=== PATIENT | female | born 1995 | race Caucasian/White ===

== ENCOUNTER 2018-05-10 14:40 | Outpatient (CLI) | payer MEDICAID, SELFPAY ==
[2018-05-10 17:34] LABS: HCG Quant, Pregnancy < 1 mIU/mL (1-3)
== END 2018-05-10 15:00 ==
PROVIDERS: PCP Nurse Practitioner; Visit Provider Advanced Practice Midwife
DX: N92.6 Irregular menstruation, unspecified (principal)
CPT/HCPCS: 36415; 84702

== ENCOUNTER 2018-12-09 18:26 | Emergency (ER) | payer MEDICAID, SELFPAY ==
[2018-12-09 18:37] VITALS: BP 119/77; PULSE 96; RESP 16; TEMP 36.8; O2SAT 99
--- NOTE | 2018-12-09 19:03 | W.ED.GENAD ---
Discharge Plan Disposition Patient Disposition: HOME Condition: Good Discharge Details Chief Complaint: Sorethroat Clinical Impression: Strep throat Primary Care Provider: Mary Rangel ED Provider: Sonia Ramirez Home Meds and New Rx's Prescriptions: New penicillin V potassium 500 mg tablet 500 mg PO BID Qty: 20 RF: 0 No Action levonorgestrel-ethinyl estrad [Kim 28] 1 EACH tablet 1 tab-cap PO DAILY Qty: 84 RF: 4 levalbuterol tartrate [Xopenex HFA] 200 PUFF HFA aerosol inhaler 2 puff Inhalation Q4H PRN PRNRF: 0 Discharge Instructions Instructions: Strep Throat (ED) Additional Instructions: Push fluids by mouth. Warm salt water gargles if needed. Cepacol lozenge for comfort. Motrin or Tylenol for soreness if needed. Rest activities as tolerated. Recheck if not improving the next 3 to 5 days. For any worsening or concerns of reevaluation, difficulty swallowing, difficulty speaking or alarming symptoms have reevaluation. Stand Alone Forms: Work Release Medical Decision Making Patient with 3 days of sore throat with a positive strep test. Negative test. No sign of complication of strep pharyngitis. Counseled regarding conservative treatments. Provided antibiotic. Patient reports her understanding. HPI General Date/Time Provider Initiated Documentation: 12/09/18 18:49. HPI Narrative: Patient presents for complaints of sore throat for the last 3 days. Mild headache. No measured fever. Patient denies nausea, vomiting or diarrhea. Very minimal cough without any associated difficult to be him or shortness of breath or wheezing. Nonproductive cough. No complaints of ear pain. Patient denies chest pain. Denies abdominal pain. Eating and drinking without complication however has decreased appetite. No other concerns or complaints at this time. Related Data Home Medications Medication Instructions Recorded Confirmed levalbuterol tartrate [Xopenex HFA] 2 puff INHALATION Q4H PRN PRN 10/12/14 12/09/18 levonorgestrel-ethinyl estrad 1 tab-cap PO DAILY #84 tab-cap 05/23/17 12/09/18 [Kim-28 Tablet] penicillin V potassium 500 mg PO BID #20 tab 12/09/18 Previous Rx's Medication Instructions Recorded levonorgestrel-ethinyl estrad 1 tab-cap PO DAILY #84 tab-cap 05/23/17 [[place]-28 Tablet] penicillin V potassium 500 mg PO BID #20 tab 12/09/18 Allergies Allergy/AdvReac Type Severity Reaction Status Date / Time No Known Allergies Allergy Unverified 08/24/18 10:30 General Stated Complaint: Sorethroat TEO: 4 Review of Systems Review of Systems Narrative: CONSTITUTIONAL: The patient denies fevers, chills. EYES: Denies vision changes, blurry vision, or eye pain. ENT: Denies hearing changes, tinnitus, vertigo. Sore throat present. CARDIAC: Denies chest pain, SOB. RESPIRATORY: Denies cough, sputum. Denies difficulty breathing. GASTROINTESTINAL: Denies abdominal pain, changes in bowel, vomiting or nausea. GENITOURINARY: Denies dysuria, or frequency of urination. MUSCULOSKELETAL: Denies Joint pain, gait changes. NEUROLOGIC: Denies headaches, Denies focal weakness. Denies numbness. INTEGUMENT: Denies rashes. PSYCHIATRIC: Denies behavior changes. Denies anxiety or depression. ENDOCRINOLOGY: Denies fatigue. PSYCHIATRY: Denies depression, agitation or anxiety ROS Unobtainable: All systems reviewed & are unremarkable except as noted in HPI and below PFSH Medical History Asthma Constipation Surgical History Appendectomy (12/24/16) Family History Mother Essential hypertension Maternal Grandmother Breast cancer Social History Smoking/Tobacco Use Status: Never Drug use: Never Do you feel safe in your relationship?: Yes Female Reproductive History Menstrual control method: pills (kim) History History Para 2 Hx # Term Pregnancies Multiple births Hx # Pregnancies Ectopic pregnancies AB induced Hx Number of Living Children AB spontaneous Exam Narrative Exam Narrative: CONST: Healthy appearing patient, in no acute distress. Well hydrated. Alert and alert. HENMT: Head nomocephalic, normal to inspection. Atraumatic. Hearing grossly normal. Pharynx with erythema, no exudate, no sign of soft palate swelling or peritonsillar abscess. EYES: General normal appearance. Alignment normal. Eyelids normal. Conjunctiva normal. NECK: Normal visual inspection. FROM. Trachea midline. No Midline tenderness. Cervical lymphadenopathy present CHEST: Normal insepection of the chest. RESP: Normal respiratory effort. Speaking full sentences. No cough. No audible wheezing. No retractions. CARDIO: No JVD. MUSCULOSKELETAL: Normal Gait. FROM of all extremities. SKIN: Normal. Dry. No rashes. NEURO: Alert and awake. Speech clear. PSYCH: Normal affect. Cooperative. Course Vital Signs Vital signs: Vital Signs Temperature 36.8 C 12/09/18 18:37 Pulse 96 H 12/09/18 18:37 Respiratory Rate 16 12/09/18 18:37 Blood Pressure 119/77 12/09/18 18:37 Pulse Oximetry 99 12/09/18 18:37 Temperature 36.8 C 12/09/18 18:37 Temperature Source Skin 12/09/18 18:37 Pulse 96 H 12/09/18 18:37 Respiratory Rate 16 12/09/18 18:37 Respiratory Effort Non-Labored 12/09/18 18:52 Blood Pressure 119/77 12/09/18 18:37 Blood Pressure Position Sitting 12/09/18 18:37 Pulse Oximetry 99 12/09/18 18:37 Oxygen Delivery Method Room Air 12/09/18 18:37 Oxygen Flow Rate 0 12/09/18 18:37 Lab/Test Results Lab/Test Results: Laboratory Tests Range/Units 12/09/18 18:51 Urine HCG, Qual Cancelled POC- Test(urine) Negative POC Strep Test-BOB(Rapid) Start: 12/09/18 18:50 Freq: .Rapid Strep Test Status: Active Protocol: Document 12/09/18 18:50 KL (Rec: 12/09/18 18:50 KL [id number]) Strep test-BOB(Rapid)-POC POC-Strep test-BOB (Rapid) Positive POC-Strep test-BOB (Rapid) Positive
== END 2018-12-09 19:12 | disposition home or self-care (01) ==
PROVIDERS: Emergency Provider Physician Assistant; PCP Nurse Practitioner
DX: J02.0 Streptococcal pharyngitis (principal)
CPT/HCPCS: 81025; 87880; 99283

== ENCOUNTER 2019-09-25 15:41 | Outpatient (REF) | payer MEDICAID, SELFPAY ==
--- NOTE | 2019-09-25 15:30 | PAPFT_PTH ---
PATIENT: Abram Guo LOC: [facility] U#:[id number] AGE/SX: 23/F ROOM: RE09/25/[address]: JOY Savage : 1995 BED: DIS: 09/25/2019 SPEC #: [id number] RECD: 09/25/19 17:06 STATUS: BONG REQ #: [id number] JENNY: 09/25/19 15:[address]: Jacque Rodriguez DEPT: [facility] Cytology RECD BY: Kavitha Lee ENTERED: 09/25/19 17:06 SP TYPE: PAPFT OTHR DR: Chantal Hendricks, PhD RN INTERN Tissues: 1 - CX/ENDOCX FOR PAP SMEARS Procedures: PAP THIN PREP/UVM Screening Comments: [id number]
== END 2019-09-25 16:01 ==
LOC: LBN 15:41
PROVIDERS: PCP Nurse Practitioner; Visit Provider Nurse Practitioner Family
DX: Z12.4 Encounter for screening for malignant neoplasm of cervix (principal)
CPT/HCPCS: 88142

== ENCOUNTER 2020-01-21 01:32 | Outpatient (CLI) | payer MEDICAID, SELFPAY ==
[2020-01-21 10:27] LABS: Hemoglobin A1C 5.5 % (<5.7)
[2020-01-21 11:05] LABS: Calculated LDL 87 mg/dL (<100); Cholesterol 161 mg/dL (<200); HDL Cholesterol 59 mg/dL (40-60); Triglyceride 77 mg/dL (<150)
== END 2020-01-21 01:52 ==
PROVIDERS: PCP Nurse Practitioner; Visit Provider Nurse Practitioner
DX: Z13.1 Encounter for screening for diabetes mellitus (principal); Z13.6 Encounter for screening for cardiovascular disorders
CPT/HCPCS: 36415; 80061; 83036

== ENCOUNTER 2020-08-14 03:12 | Outpatient (CLI) | payer MEDICAID, SELFPAY ==
[2020-08-14 11:43] LABS: Abs Immature Grans 0.02 10^3/uL (0.0-0.06); Absolute Basophil Count 0.02 10^3/uL (0.0-0.2); Absolute Eosinophil Count 0.02 10^3/uL (0.0-0.7); Absolute Lymphocyte Count 3.04 10^3/uL (1.2-3.4); Absolute Monocyte Count 0.76 10^3/uL (0.1-0.8); Basophils % 0.2; Eosinophils % 0.2; HCT 37.9 % (36.0-46.0); HGB 12.5 g/dL (11.2-15.7); Immature Grans % 0.2; Lymphocytes % 33.9; MCH 26.9 pg (27.0-33.0); MCV 81.7 fL (80-95); MPV 9.1 fL (8.0-11.0); Monocytes % 8.5; Nucleated RBC 0 %; Platelet Count 256 10^3/uL (130-400); RBC 4.64 10^6/uL (3.93-5.22); RDW 13.5 % (11.7-14.6); RDW-SD 39.9 fL; WBC 8.96 10^3/uL (4.4-10.8)
[2020-08-14 12:28] LABS: TSH (W/Ref FT4) 0.97 uIU/mL (0.36-3.74)
[2020-08-15 08:43] LABS: Hepatitis B Surface Ag Negative (Negative)
[2020-08-15 09:44] LABS: HIV-1/2 Ag & Ab Screen Negative (Negative)
[2020-08-15 12:06] LABS: Rubella IgG Ab (UVM) Positive (See Note); Varicella IgG Antibody Positive (See Note)
[2020-08-16 10:03] LABS: Syphilis Total Ab w/Reflex Nonreactive (Nonreactive)
[2020-08-18 10:48] LABS: Hepatitis C Ab w Rflx HCV PCR Negative (Negative)
== END 2020-08-14 03:13 | disposition home or self-care (01) ==
LOC: LBO 03:12
PROVIDERS: PCP Nurse Practitioner; Visit Provider Advanced Practice Midwife
DX: O99.281 Endocrine, nutritional and metabolic diseases complicating pregnancy, first trimester (principal); Z68.35 Body mass index [BMI] 35.0-35.9, adult; Z11.4 Encounter for screening for human immunodeficiency virus [HIV]; Z11.59 Encounter for screening for other viral diseases; Z01.84 Encounter for antibody response examination; Z3A.10 10 weeks gestation of pregnancy
CPT/HCPCS: 36415; 86787; 86803; 86850; 86900; 86901; 87340; 87389; 84443; 85025; 86762; 86780

== ENCOUNTER 2020-08-14 13:28 | Outpatient (REF) | payer MEDICAID, SELFPAY ==
[2020-08-14 15:11] LABS: *AMPHETAMINES SCREEN URINE Negative (Negative); *BARBITURATES SCREEN URINE Negative (Negative); *BENZODIAZEPINES SCREEN URINE Negative (Negative); Cannabinoids THC Negative (Negative); Cocaine Screen,Urine Negative (Negative); METHADONE URINE SCREEN Negative (Negative); OPIATES URINE SCREEN Negative (Negative)
[2020-08-14 15:14] LABS: Tricyclic Antidepressants Negative (Negative)
[2020-08-18 14:14] LABS: Chlamydia Result Negative (Negative); GC Result Negative (Negative)
[2020-08-21 13:17] LABS: Buprenorphine Negative ng/mL (Cutoff: 5.0); Norbuprenorphine Negative ng/mL (Cutoff: 2.5)
== END 2020-08-14 13:29 | disposition home or self-care (01) ==
LOC: LBN 13:28
PROVIDERS: PCP Nurse Practitioner; Visit Provider Advanced Practice Midwife
DX: Z34.91 Encounter for supervision of normal pregnancy, unspecified, first trimester; Z11.3 Encounter for screening for infections with a predominantly sexual mode of transmission; Z3A.10 10 weeks gestation of pregnancy
CPT/HCPCS: 80307; 87491; 87591; 87086

== ENCOUNTER 2020-08-19 03:22 | Outpatient (CLI) | payer MEDICAID, SELFPAY ==
[2020-08-19 10:11] LABS: Glucose 1 Hour 201 mg/dL
[2020-08-19 12:15] LABS: Glucose 3 Hour 143 mg/dL
== END 2020-08-19 03:23 | disposition home or self-care (01) ==
LOC: LBO 03:23
PROVIDERS: PCP Nurse Practitioner; Visit Provider Advanced Practice Midwife
DX: O99.810 Abnormal glucose complicating pregnancy (principal); Z3A.10 10 weeks gestation of pregnancy
CPT/HCPCS: 36415; 82951

== ENCOUNTER 2020-08-28 03:09 | Outpatient (CLI) | payer MEDICAID, SELFPAY ==
--- NOTE | 2020-08-28 09:00 | NS.NUTBLAN_ITS ---
Met with Billie in [facility]. She is 12 weeks with preGDM after failed early glucola. Has hx of > 9 lbs baby in 2017 with + family history for DM 2. She has brought in her blood sugar logs and her fasting sugars are mostly < 95 however, has several fasting sugars > 100 mg/dl. Reports post prandial blood sugars < 140mg/dl. Food journal indicates well balanced meals. Reviewed diet and exercise principles for life style management of GDM. To test BS QID for another week and meet with MDs if fasting levels consistently > 100 mg/dl for insulin management. Will continue to follow.
[2020-08-28 10:59] LABS: Kit/Specimen SENT
== END 2020-08-28 03:10 | disposition home or self-care (01) ==
LOC: LBO 03:09
PROVIDERS: PCP Nurse Practitioner; Visit Provider Advanced Practice Midwife
DX: O24.410 Gestational diabetes mellitus in pregnancy, diet controlled (principal); Z3A.12 12 weeks gestation of pregnancy; Z71.3 Dietary counseling and surveillance
CPT/HCPCS: 36415; 97802

== ENCOUNTER 2020-09-24 03:26 | Outpatient (CLI) | payer MEDICAID, SELFPAY ==
[2020-09-26 15:49] LABS: AFP 55.5 ng/mL; Calculated age at EDD 27 years; Cigarette smoking status non-Smoker; GA used in risk estimate Scan estimate; IVF Pregnancy No; Initial or repeat testing Initial testing; Insulin dependent diabetes Yes; Maternal Weight 228 lbs; Number of Fetuses 1; Physician Phone Number 802-748-7300; Prev Pregnancy w/NTD No; RECOMMENDED FOLLOW UP None.; Results Summary Normal risk
== END 2020-09-24 03:27 | disposition home or self-care (01) ==
LOC: LBO 03:26
PROVIDERS: PCP Nurse Practitioner; Visit Provider Obstetrics & Gynecology Gynecology
DX: Z34.92 Encounter for supervision of normal pregnancy, unspecified, second trimester (principal); Z3A.16 16 weeks gestation of pregnancy; Z36.89 Encounter for other specified antenatal screening
CPT/HCPCS: 36415; 82105

== ENCOUNTER → 2020-10-15 01:57 | Outpatient (CLI) | payer OTHER, MEDICAID, SELFPAY ==
--- NOTE | 2020-10-15 08:45 | DI.US_ITS ---
Exam(s) US OB 2-3 TRIMESTER EXAM: US OB 2-3 TRIMESTER CLINICAL HISTORY: morphology,Z34.92. TECHNIQUE: Transabdominal obstetrical ultrasound was performed. COMPARISON: US OB US 2-3 TRIMESTER TRANSABD*P from 04/16/2016 FINDINGS: There is a single viable intrauterine gestation with cardiac activity identified-158 bpm. Amniotic fluid: There is a normal amount of amniotic fluid. Placental location: The placenta is anterior grade 1,with no evidence of placenta previa.The distance from the tip of placenta to the internal cervical os on today's study is 2.6 cm ANATOMY: A 3 vessel umbilical cord is seen. A four-chamber cardiac view was obtained. Right and left ventricular outflow tracts were imaged. There are no obvious abnormalities of the spinal column evident. There is no obvious abnormal ity of the anterior abdominal wall. stomach and urinary bladder are identified and there is no evidence of hydronephrosis. No abnormalities of the upper lip region are identified. No evidence of choroid plexus cysts i n the brain. Dating parameters place this at approximately 20 weeks and 3 days gestational age. BPD measures 20 weeks and 3 days HC measures 20 weeks and 4 days AC measures 20 weeks and 5 days FL measures 19 weeks and 5 days Estimated weight is 342 gm-0 pounds 12 ounces Fetus is at the 98th percentile on the Hadlock scale. IMPRESSION:: Single viable intrauterine gestation which is approximately 20 weeks and 3 days gestati onal age, implying an NAYA of March 01, 2021. There are no obvious anomalies evident on today's study. The placenta is anterior with no evidence of placenta previa. There is a normal amount of amniotic fluid. DATA REPOSITORY:
== END ==
PROVIDERS: PCP Nurse Practitioner; Visit Provider Obstetrics & Gynecology Gynecology
DX: Z34.92 Encounter for supervision of normal pregnancy, unspecified, second trimester (principal); Z3A.20 20 weeks gestation of pregnancy
CPT/HCPCS: 76805

== ENCOUNTER → 2021-01-19 00:38 | Outpatient (CLI) | payer OTHER, MEDICAID, SELFPAY ==
--- NOTE | 2021-01-19 06:45 | DI.US_ITS ---
Exam(s) US OB SCHUYLER WEIGHT EXAM: US OB SCHUYLER WEIGHT CLINICAL HISTORY: growth and SCHUYLER,GESTATIONAL DIABETES,o24.319. TECHNIQUE: Transabdominal obstetrical ultrasound was performed. COMPARISON: US US OB 2-3 TRIMESTER from 10/15/2020 FINDINGS: There is a single viable intrauterine gestation with cardiac activity identified-173 bpm The fetus is presently in cephalic position . Amniotic fluid: There appears to be an element of polyhydramnios, with SCHUYLER of 31.8 cm. Placental location: The placenta is anterior grade 1-2,with no evidence of placenta previa. Dating parameters place this at approximately 37 weeks and 2 days gestational age, implying NAYA of February 07, 2021. BPD measures 38 weeks and 3 days HC measures 38 weeks and 2 days AC measures 36 weeks and 2 days FL measures 36 weeks and 0 days Estimated weight is 2998 gm-6 pounds, 10 ounces Fetus is at the not given percentile on the Hadlock scale. IMPRESSION:: Viable 3rd trimester gestation, as described above. There is polyhydramnios. SCHUYLER= 31.8 cm DATA REPOSITORY:
== END ==
PROVIDERS: PCP Nurse Practitioner; Visit Provider Obstetrics & Gynecology
DX: O24.414 Gestational diabetes mellitus in pregnancy, insulin controlled (principal); Z3A.37 37 weeks gestation of pregnancy
CPT/HCPCS: 76816

== ENCOUNTER 2021-01-29 13:46 | Outpatient (CLI) | payer OTHER, MEDICAID, SELFPAY ==
[2021-01-29 13:52] VITALS: BP 120/64; PULSE 86; TEMP 36.8
[2021-01-29 13:55] VITALS: BP 120/64; PULSE 86
--- NOTE | 2021-02-02 12:22 | W.OBNST ---
Date of service: 01/29/21 Time of Service: 12:22 NST Evaluation Reason for NST Reasons for Nonstress Test: GDM-INSULIN Gestational Age Gestational Age in Weeks and Days: 34 Weeks and 5Days Test and Monitor Explained Test/Monitor Explained: Test Explained, Monitor Explained and Patient Verbalized Understanding Vital Signs Blood Pressure: 120/64 Pulse: 86 Temperature: 98.2 F NST Information Date on Monitor: 01/29/21 Time on Monitor: 13:54 Date off Monitor: 01/29/21 Time off Monitor: 14:20 Total Time on Monitor: 26 NST Interventions: None Contraction Frequency: 0 NST Evaluation Patient States Movement: Present FHR Baseline: 130 Variability: Moderate 6-25 bpm Accelerations: 15x15 Decelerations: None NST Results: Reactive Note NST Note Note: Pt here for NST for GDM. Will monitor FS until tuesday and adjust if necessary. twice weekly NSTs NST Reviewed and Verified by: Krystal Tamayo
[2021-02-02 12:23] VITALS: BP 120/64; PULSE 86; TEMP 36.8
== END 2021-01-29 14:25 | disposition home or self-care (01) ==
LOC: BCD 13:49 → OBS 13:51
PROVIDERS: PCP Nurse Practitioner; Visit Provider Obstetrics & Gynecology
DX: O24.414 Gestational diabetes mellitus in pregnancy, insulin controlled (principal); Z3A.34 34 weeks gestation of pregnancy
CPT/HCPCS: 59025

== ENCOUNTER 2021-02-02 09:42 | Outpatient (CLI) | payer OTHER, MEDICAID, SELFPAY ==
[2021-02-02 10:24] VITALS: BP 107/58; PULSE 100
[2021-02-02 10:27] VITALS: BP 107/58; PULSE 100; TEMP 36.9
--- NOTE | 2021-02-02 11:08 | W.OBNST ---
Date of service: 02/02/21 Time of Service: 11:09 NST Evaluation Reason for NST Reasons for Nonstress Test: GDM-INSULIN Gestational Age Gestational Age in Weeks and Days: 34 Weeks and 5Days Test and Monitor Explained Test/Monitor Explained: Test Explained, Monitor Explained and Patient Verbalized Understanding Vital Signs Blood Pressure: 107/58 Pulse: 100 Temperature: 98.4 F NST Information Date on Monitor: 02/02/21 Time on Monitor: 10:08 Date off Monitor: 02/02/21 Time off Monitor: 11:04 Total Time on Monitor: 56 NST Interventions: PO Hydration and Reposition Patient Contraction Frequency: irregular NST Evaluation Patient States Movement: Present FHR Baseline: 140 Variability: Moderate 6-25 bpm Accelerations: 15x15 Decelerations: None NST Results: Reactive Note NST Note Note: Pt is a here for NSTs for GDM - currently adequately controlled on insulin. NST reactive. Will continue current dose. NST Reviewed and Verified by: Krystal Tamayo
[2021-02-02 11:10] VITALS: BP 107/58; PULSE 100; TEMP 36.9
== END 2021-02-02 11:10 | disposition home or self-care (01) ==
LOC: BCD 09:44 → OBS 10:04
PROVIDERS: PCP Nurse Practitioner; Visit Provider Obstetrics & Gynecology Gynecology
DX: O24.414 Gestational diabetes mellitus in pregnancy, insulin controlled (principal); Z3A.34 34 weeks gestation of pregnancy
CPT/HCPCS: 59025

== ENCOUNTER 2021-02-05 10:03 | Outpatient (CLI) | payer OTHER, MEDICAID, SELFPAY ==
[2021-02-05 10:11] VITALS: BP 119/59; PULSE 114; TEMP 36.8
--- NOTE | 2021-02-05 11:29 | W.OBNST ---
Date of service: 02/05/21 Time of Service: 11:29 NST Evaluation Reason for NST Reasons for Nonstress Test: GDM-INSULIN Gestational Age Gestational Age in Weeks and Days: 35 Weeks and 1Days Test and Monitor Explained Test/Monitor Explained: Test Explained, Monitor Explained and Patient Verbalized Understanding Vital Signs Blood Pressure: 119/59 Pulse: 114 Temperature: 98.2 F NST Information Date on Monitor: 02/05/21 Time on Monitor: 10:03 Date off Monitor: 02/05/21 Time off Monitor: 10:36 Total Time on Monitor: 33 NST Interventions: None NST Evaluation Patient States Movement: Present FHR Baseline: 145 Variability: Moderate 6-25 bpm Accelerations: 15x15 Decelerations: None NST Results: Reactive Note NST Note Note: Patient seen for nonstress test and OB visit on the center today. She has a category 1 reactive nonstress test. Cervical exam revealed a cervix that is closed, 50% effaced and -2 station. She will have twice weekly nonstress testing. Ultrasound for growth and SCHUYLER at 38 weeks, weekly OB visits. She will continue her insulin as directed. Fasting and postprandial blood sugars are within target range. NST Reviewed and Verified by: Celena Soto
[2021-02-05 11:30] VITALS: BP 119/59; PULSE 114; TEMP 36.8
== END 2021-02-05 10:50 | disposition home or self-care (01) ==
LOC: BCD 10:04 → OBS 10:10
PROVIDERS: PCP Nurse Practitioner; Visit Provider Obstetrics & Gynecology
DX: O24.414 Gestational diabetes mellitus in pregnancy, insulin controlled (principal); Z3A.35 35 weeks gestation of pregnancy
CPT/HCPCS: 59025

== ENCOUNTER 2021-02-09 06:27 | Outpatient (CLI) | payer OTHER, MEDICAID, SELFPAY ==
[2021-02-09 10:12] VITALS: BP 110/64; PULSE 99
[2021-02-09 10:14] VITALS: BP 110/64; PULSE 99
--- NOTE | 2021-02-10 13:01 | W.OBNST ---
Date of service: 02/09/21 Time of Service: 13:01 NST Evaluation Reason for NST Reasons for Nonstress Test: GDM-INSULIN Gestational Age Gestational Age in Weeks and Days: 35 Weeks and 5Days Test and Monitor Explained Test/Monitor Explained: Test Explained, Monitor Explained and Patient Verbalized Understanding Vital Signs Blood Pressure: 110/64 Pulse: 99 NST Information Date on Monitor: 02/09/21 Time on Monitor: 10:07 NST Interventions: PO Hydration NST Evaluation Patient States Movement: Present FHR Baseline: 145 Variability: Moderate 6-25 bpm Accelerations: 15x15 Decelerations: None NST Results: Reactive Note NST Note Note: 35.5wks with GDM here for NST - twice weekly. FS are stable. Returns later this week for repeat NST. NST Reviewed and Verified by: Krystal Tamayo
[2021-02-10 13:03] VITALS: BP 110/64; PULSE 99
== END 2021-02-09 10:40 | disposition home or self-care (01) ==
LOC: BCD 06:33 → OBS 10:03
PROVIDERS: PCP Nurse Practitioner; Visit Provider Obstetrics & Gynecology
DX: O24.414 Gestational diabetes mellitus in pregnancy, insulin controlled (principal); Z3A.35 35 weeks gestation of pregnancy
CPT/HCPCS: 59025

== ENCOUNTER 2021-02-12 05:45 | Outpatient (CLI) | payer OTHER, MEDICAID, SELFPAY ==
[2021-02-12 09:05] VITALS: BP 110/55; PULSE 100
[2021-02-12 09:34] VITALS: BP 110/55; PULSE 100; TEMP 37
[2021-02-12 09:54] VITALS: BP 110/55; PULSE 100; TEMP 37
--- NOTE | 2021-02-12 09:54 | W.OBNST ---
Date of service: 02/12/21 Time of Service: 09:54 NST Evaluation Reason for NST Reasons for Nonstress Test: GDM-INSULIN Gestational Age Gestational Age in Weeks and Days: 36 Weeks and 1Days Vital Signs Blood Pressure: 110/55 Pulse: 100 Temperature: 98.6 F NST Information Date on Monitor: 02/12/21 Time on Monitor: 09:00 Date off Monitor: 02/12/21 Time off Monitor: 09:49 Total Time on Monitor: 49 NST Evaluation Patient States Movement: Present FHR Baseline: 145 Variability: Moderate 6-25 bpm Decelerations: None NST Results: Reactive Note NST Note Note: Category 1 nonstress test. Group B strep culture obtained. Cervical exam performed, cervix closed, 50%, vertex the ballotable. Continue surveillance. NST Reviewed and Verified by: Celena Soto
== END 2021-02-12 09:55 | disposition home or self-care (01) ==
LOC: BCD 06:06 → OBS 08:55 → BCD 08:57 → OBS 08:59
PROVIDERS: PCP Nurse Practitioner; Visit Provider Obstetrics & Gynecology
DX: O24.414 Gestational diabetes mellitus in pregnancy, insulin controlled (principal); Z3A.36 36 weeks gestation of pregnancy; Z36.85 Encounter for antenatal screening for Streptococcus B
CPT/HCPCS: 59025; 87081

== ENCOUNTER 2021-02-13 14:33 | Outpatient (CLI) | payer OTHER, MEDICAID, SELFPAY ==
[2021-02-13 15:45] VITALS: BP 108/67; PULSE 94; TEMP 36.8
[2021-02-13 16:00] VITALS: BP 108/67; PULSE 94
[2021-02-16 12:12] VITALS: BP 124/80; PULSE 94
--- NOTE | 2021-02-17 16:56 | W.OBNST ---
Date of service: 02/13/21 Time of Service: 16:57 NST Evaluation Reason for NST Reasons for Nonstress Test: GDM-INSULIN Gestational Age Gestational Age in Weeks and Days: 36 Weeks and 5Days Test and Monitor Explained Test/Monitor Explained: Test Explained, Monitor Explained and Patient Verbalized Understanding Vital Signs Blood Pressure: 108/67 Pulse: 94 Temperature: 98.2 F NST Information Date on Monitor: 02/13/21 Time on Monitor: 15:50 Date off Monitor: 02/13/21 Time off Monitor: 16:18 Total Time on Monitor: 28 NST Interventions: PO Hydration NST Evaluation Patient States Movement: Present FHR Baseline: 150 Variability: Moderate 6-25 bpm Accelerations: 15x15 Decelerations: None NST Results: Reactive Note NST Note Note: Pt reports satisfactory glycemic control. NST Reviewed and Verified by: Caty Banerjee
[2021-02-17 16:57] VITALS: BP 108/67; PULSE 94; TEMP 36.8
== END 2021-02-13 16:20 | disposition home or self-care (01) ==
LOC: BCD 14:34 → OBS 15:44
PROVIDERS: PCP Nurse Practitioner; Visit Provider Obstetrics & Gynecology Gynecology
DX: O24.414 Gestational diabetes mellitus in pregnancy, insulin controlled (principal); Z3A.36 36 weeks gestation of pregnancy
CPT/HCPCS: 59025

== ENCOUNTER 2021-02-16 07:43 | Outpatient (CLI) | payer OTHER, MEDICAID, SELFPAY ==
[2021-02-16 09:05] VITALS: BP 115/63; PULSE 100; TEMP 36.5
--- NOTE | 2021-08-13 08:07 | W.OBNST ---
Date of service: 08/13/21 Time of Service: 07:07 NST Evaluation Reason for NST Reasons for Nonstress Test: GDM-INSULIN Gestational Age Gestational Age in Weeks and Days: 39 Weeks and 0Days Test and Monitor Explained Test/Monitor Explained: Test Explained, Monitor Explained and Patient Verbalized Understanding Vital Signs Blood Pressure: 115/63 Pulse: 100 Temperature: 97.7 F NST Information Date on Monitor: 02/16/21 Time on Monitor: 09:08 Date off Monitor: 02/16/21 Time off Monitor: 09:40 Total Time on Monitor: 32 NST Interventions: PO Hydration NST Evaluation Patient States Movement: Present Variability: Moderate 6-25 bpm Accelerations: 15x15 Decelerations: None NST Results: Reactive Note NST Note Note: Satisfactory glycemic control NST Reviewed and Verified by: Caty Banerjee
[2021-08-13 08:08] VITALS: BP 115/63; PULSE 100; TEMP 36.5
== END 2021-02-16 09:40 | disposition home or self-care (01) ==
LOC: BCD 07:44 → OBS 08:56
PROVIDERS: PCP Nurse Practitioner; Visit Provider Obstetrics & Gynecology Gynecology
DX: O24.414 Gestational diabetes mellitus in pregnancy, insulin controlled (principal); Z3A.36 36 weeks gestation of pregnancy
CPT/HCPCS: 59025

== ENCOUNTER 2021-02-18 07:10 | Outpatient (CLI) | payer OTHER, MEDICAID, SELFPAY ==
[2021-02-18 08:51] VITALS: BP 126/67; PULSE 95; TEMP 36.9
[2021-02-18 08:56] VITALS: BP 126/67; PULSE 95
--- NOTE | 2021-02-25 09:09 | W.OBNST ---
Date of service: 02/25/21 Time of Service: 09:09 NST Evaluation Reason for NST Reasons for Nonstress Test: GDM-INSULIN Gestational Age Gestational Age in Weeks and Days: 37 Weeks and 5Days Test and Monitor Explained Test/Monitor Explained: Test Explained, Monitor Explained and Patient Verbalized Understanding Vital Signs Blood Pressure: 126/67 Pulse: 95 Temperature: 98.4 F Urine Results Urine Protein: Positive Urine Ketones: Positive Urine Glucose: Negative Urine Blood: Negative NST Information Date on Monitor: 02/18/21 Time on Monitor: 08:55 Date off Monitor: 02/18/21 Time off Monitor: 10:11 Total Time on Monitor: 76 NST Interventions: PO Hydration NST Evaluation Patient States Movement: Present FHR Baseline: 150 Variability: Moderate 6-25 bpm Accelerations: 15x15 Decelerations: Late NST Results: Reactive Note NST Note Note: excellent glycemic control. NST Reviewed and Verified by: Caty Banerjee
[2021-02-25 09:10] VITALS: BP 126/67; PULSE 95; TEMP 36.9
== END 2021-02-18 10:15 | disposition home or self-care (01) ==
LOC: BCD 07:11 → OBS 08:50
PROVIDERS: PCP Nurse Practitioner; Visit Provider Obstetrics & Gynecology Gynecology
DX: O24.414 Gestational diabetes mellitus in pregnancy, insulin controlled (principal); Z3A.37 37 weeks gestation of pregnancy
CPT/HCPCS: 59025

== ENCOUNTER 2021-02-23 07:47 | Outpatient (CLI) | payer OTHER, MEDICAID, SELFPAY ==
[2021-02-23 09:02] VITALS: BP 117/77; PULSE 98; TEMP 36.8
[2021-02-23 09:04] VITALS: BP 117/77; PULSE 98; RESP 16; TEMP 36.8
--- NOTE | 2021-02-23 09:28 | W.OBNST ---
Date of service: 02/23/21 Time of Service: 09:28 NST Evaluation Reason for NST Reasons for Nonstress Test: GDM-INSULIN Gestational Age Gestational Age in Weeks and Days: 37 Weeks and 5Days Test and Monitor Explained Test/Monitor Explained: Patient Verbalized Understanding Vital Signs Blood Pressure: 117/77 Pulse: 98 Temperature: 98.2 F NST Information Date on Monitor: 02/23/21 Time on Monitor: 09:00 Date off Monitor: 02/23/21 Time off Monitor: 09:20 Total Time on Monitor: 20 NST Interventions: None and Notify Provider Contraction Frequency: 12 NST Evaluation Patient States Movement: Present FHR Baseline: 135 Variability: Moderate 6-25 bpm Accelerations: 15x15 Decelerations: None NST Results: Reactive Note NST Note Note: Patient has a reactive category 1 nonstress test with no particular pattern of contractions. She will have a repeat nonstress test twice weekly. She is scheduled for ultrasound for SCHUYLER, and estimated weight on 02/27/2021. She will also have NST and an office visit that day. At that point, we will consider timing for labor induction based on estimated weight and cervical favorability NST Reviewed and Verified by: Celena Soto
[2021-02-23 09:29] VITALS: BP 117/77; PULSE 98; TEMP 36.8
== END 2021-02-23 09:35 | disposition home or self-care (01) ==
LOC: BCD 07:49 → OBS 08:55
PROVIDERS: PCP Nurse Practitioner; Visit Provider Obstetrics & Gynecology
DX: O24.414 Gestational diabetes mellitus in pregnancy, insulin controlled (principal); Z3A.37 37 weeks gestation of pregnancy
CPT/HCPCS: 59025

== ENCOUNTER 2021-02-28 07:33 | Outpatient (CLI) | payer OTHER, MEDICAID, SELFPAY ==
[2021-02-28 09:55] VITALS: BP 124/68; PULSE 113; TEMP 36.7
[2021-02-28 09:56] VITALS: BP 124/68; PULSE 113
--- NOTE | 2021-02-28 10:57 | W.OBNST ---
Date of service: 02/28/21 Time of Service: 10:57 NST Evaluation Reason for NST Reasons for Nonstress Test: GDM-INSULIN Gestational Age Gestational Age in Weeks and Days: 38 Weeks and 3Days Test and Monitor Explained Test/Monitor Explained: Test Explained, Monitor Explained and Patient Verbalized Understanding Vital Signs Blood Pressure: 124/68 Pulse: 113 Temperature: 98.1 F Urine Results Urine Protein: Negative Urine Ketones: Negative Urine Glucose: Negative Urine Blood: Negative NST Information Date on Monitor: 02/28/21 Time on Monitor: 09:53 Date off Monitor: 02/28/21 Time off Monitor: 10:37 Total Time on Monitor: 44 NST Interventions: PO Hydration Contraction Frequency: occasional NST Evaluation Patient States Movement: Present FHR Baseline: 145 Variability: Moderate 6-25 bpm Accelerations: 15x15 Decelerations: None NST Results: Reactive Note Other (Patient missed ultrasound for SCHUYLER and weight on 02/27/2021) NST Note Note: Nonstress test is reactive. The transabdominal ultrasound shows subjectively normal fluid and an active fetus with breathing motion gross and fine motor movements. I attempted a measurement of BPD and AC with limited success. Patient is scheduled for induction of labor on 03/04/2021. NST Reviewed and Verified by: Caty Banerjee
[2021-02-28 10:59] VITALS: BP 124/68; PULSE 113; TEMP 36.7
== END 2021-02-28 11:00 | disposition home or self-care (01) ==
LOC: BCD 07:34 → OBS 09:53
PROVIDERS: PCP Nurse Practitioner; Visit Provider Obstetrics & Gynecology Gynecology
DX: O24.414 Gestational diabetes mellitus in pregnancy, insulin controlled (principal); Z3A.38 38 weeks gestation of pregnancy
CPT/HCPCS: 59025

== ENCOUNTER 2021-03-04 07:35 | Inpatient (IN) | payer OTHER, MEDICAID, SELFPAY ==
[2021-03-04] VITALS (13 sets, daily range): BP systolic 109–139; BP diastolic 56–74; PULSE 71–113; RESP 16–18; TEMP 36.8–37.3; O2SAT 97
--- NOTE | 2021-03-04 09:18 | W.PM.OBHPL1 ---
Date of service: 03/04/21 Time of Service: 09:18 Assessment and Plan Assessment and plan (1) Modified White class B pregestational diabetes mellitus: Status: Acute Assessment and plan: Induction at 39wks. Will check fs throughout labor and treat accordingly. (2) LGA (large for gestational age) fetus affecting management of mother: Status: Acute Assessment and plan: Expecting a big baby but not significantly larger then her last. Will be prepared for possibility of shoulder dystocia. (3) History of macrosomia in in prior , currently : Status: Acute OB-HPI Labor/Delivery History of Present Illness Reason for Visit: Induction of Labor Chief Complaint: Scheduled Induction of Labor Indication for Induction: Chronic Maternal Diabetes (on 6U NPH QHS). NAYA Calculator Estimated Delivery Date Method Current WG Current Estimate 03/11/21 Ultrasound #1 39w 0d Other Estimates 02/12/21 LMP (Uncertain) 42w 6d History of Present Expected Delivery Route/Plan -MD management @ 14 wks for pre-gest DM on insulin FOB/ - Cristina Dearborn (2nd baby together) BB yes to circ Specific Issues/Plan 1. CF negative, [place] low prob x3, male fetus, mAFP Nl. 2. Counseled regarding COVID vaccination, pt wants to wait until delivery. FOB will be vaccinated soon (food sanitarian) 3. Hx asthma, has inhaler Rx'ed by PCP 4. Pre-gestational DM dx'ed at 10 wks - Start low dose ASA 81mg/162mg alternating @ 12 wks - Novolin-N at HS started @ 14 wks. 6UQHS, will add 2U in am (01/29) - echo at 22w EGA: normal - Growth U/S at 38 weeks. Had to be cancelled due to URI sxms and then it was unable to be scheduled due to the weekend. Bedside sono with Dr. Banerjee 02/28 - does not appear to be larger then her second baby. -NSTs twice weekly at 34 weeks. IOL at 39 weeks vs 5. If CS, then she likely wants a tubal. Otherwise her plans a vasectomy. Narrative: Pt with mild intermittent contractions. Informed Consent Informed Consent: Induction of Labor Review of Systems Constitutional Constitutional: Reports system reviewed and no additional complaints, except as documented Cardiovascular Cardiovascular: Reports system reviewed and no additional complaints, except as documented Respiratory Respiratory: Reports system reviewed and no additional complaints, except as documented Gastrointestinal Gastrointestinal: Reports system reviewed and no additional complaints, except as documented Genitourinary Genitourinary: Reports system reviewed and no additional complaints, except as documented [facility] Active Problem List (Updated 03/04/21 @ 11:58 by Krystal Tamayo MD) Modified White class B pregestational diabetes mellitus (Acute) Polyhydramnios (Acute) LGA (large for gestational age) fetus affecting management of mother (Acute) History of macrosomia in infant in prior , currently (Acute) Medical History (Updated 03/04/21 @ 11:58 by Krystal Tamayo MD) Acute appendicitis Asthma Constipation Surgical History Appendectomy (12/24/16) Family History Mother Essential hypertension Paternal Grandmother , age 54 Breast cancer Asthma Father No problems noted. Sister No problems noted. Brother No problems noted. Son No problems noted. Son No problems noted. Maternal Grandfather No problems noted. Paternal Grandfather , age 76 Stroke Maternal Grandmother Diabetes Depression Social History (Updated 02/24/21 @ 17:13 by Dania Eubanks) Smoking/Tobacco Use Status: Never Second Hand Exposure: Yes Smoking risk assessment performed?: Yes Alcohol Intake: current Alcohol Intake frequency: a few times a month Drug use: Never Caregiver/Support person: No Household members: spouse and children Housing: house Communication Needs: None Do you need help understanding health information?: Never Pets and animals: Yes Pets and animals: cat(s) Sexually active: Yes Do you think of yourself as: straight/heterosexual Current gender identity: female What is your relationship status?: How often do you talk on the phone with friends or family?: three or more times per week How often do you get together with friends or relatives?: three or more times per week How often do you attend quaker or orthodox services?: 1-3 times per year Do you belong to any clubs or organized social groups?: no Panel score (0-1 are the most socially isolated patients): 2 What type of physical activity do you participate in: walking Duration: 15-30 minutes/day Frequency: daily Special nissa needs: No Seatbelt use: always Helmet use: Yes Helmet use: always Drive 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 Date GA/Weeks # Outcome Route Wgt Sex Labor Lgth Anesthesia Location Prov Complic 02/14/13 39 No Successful vaginal 7 lb 15 oz Male 12 hrs regional [facility] [place] 09/14/16 40 No Successful vaginal 9 lb 12 oz Male 4 hrs [facility] [place] Delivery Date: 02/14/13 nml labor and , epidural, stitches, no complications Emily Manley Delivery Date: 09/14/16 fast labor, used nitrous only, nml , only 4 stitches, no complications Emily Manley Meds Allergies and Home Medications Allergies Allergy/AdvReac Type Severity Reaction Status Date / Time No Known Allergies Allergy Verified 02/24/21 09:11 Home Medications Medication Instructions Recorded Confirmed Type alcohol swabs 1 pad TOPICAL .4 times daily #200 12/03/20 03/04/21 Rx ea aspirin 81 mg tablet,delayed 81 mg PO DAILY #90 tab 12/03/20 03/04/21 Rx release blood sugar diagnostic #100 ea 12/03/20 03/04/21 Rx blood sugar diagnostic #50 ea 12/03/20 03/04/21 Rx blood-glucose meter #1 ea 12/03/20 03/04/21 Rx pen needle, diabetic 31 gauge x #100 ea 12/03/20 03/04/21 Rx 5/16 prenat.vits,dana,wul-mbqn-[id number] 1 tab PO DAILY #90 tab 12/03/20 03/04/21 Rx insulin NPH isoph U-100 human 100 6 unit SUBCUT QPM #15 ml 01/16/21 03/04/21 Rx unit/mL (3 mL) subcutaneous pen lancets 28 gauge #100 ea 01/16/21 03/04/21 Rx diphenhydramine-acetaminophen 50 1 tab PO PRN 01/22/21 02/24/21 History mg-650 mg tablet albuterol sulfate 90 mcg/actuation 2 puff IH 6XD PRN #18 gm 02/24/21 03/04/21 Rx aerosol inhaler Exam Physical Exam Vital signs: Temp Pulse Resp BP Pulse Ox 98.4 F 113 H 18 123/74 97 03/04/21 07:53 03/04/21 07:53 03/04/21 07:53 03/04/21 07:53 03/04/21 07:53 Detailed Labor and Delivery Exam Dilation: 1 Effacement (%): 50 station: -3 Cervix position: mid Consistency: soft Freier Score: Cervical Points Exam 0 1 2 3 Dilation Closed 1-2cm 3-4 cm 5-6cm Effacement 0-30% 40-50% 60-70% 80% Consistency Firm Medium Soft Station -3 -2 -1,0 +1,+2 Position Posterior Mid Anterior FREIRE Score(Cervical Ripeness Score): 5 Amniotic Membrane Status: Intact Contraction Frequency(min): irregular Fetus A Heart Rate Baseline: 140 Monitor Accelerations: 15 X 15 Monitor Decelerations: None Variability: Moderate (6-25 BPM) Presentation: Cephalic Est. Weight: 9 lb 8 oz HEENT Exam HEENT Exam: Normal Respiratory Exam Respiratory Exam: Normal Abdominal Exam Abdominal Exam: Normal (gravid, nontender) Neurological Exam Neurological Exam: Normal Results Results Group Beta Strep: Negative Blood Type: O+ Rubella Status: Immune Varicella Immunity: Immune Risk Assessment Risk for Shoulder Dystocia Historical/Initial OB: POSITIVE FOR: Pre- BMI>30; NEGATIVE FOR: Pelvic Abnormality, Previous Shoulder Dystocia or Previous Macrosomia Counseling: proven to Date/Initial: DALE Delivery Plan @ 36wks: Vaginal, will have growth ultrasound at 38 weeks Risk for Pre-Eclampsia Date Initiated/Initials: started low dose daily at 12 wks. jk Yes, if one or more: POSTIVE FOR: Pre-gestational DM; NEGATIVE FOR: Hx Pre-E/Gest HTN, Chronic HTN, Multiple Gestation, Renal Disease, Systemic Lupus or APA Syndrome Yes, if 2 or more: POSITIVE FOR: BMI>30; NEGATIVE FOR: Nulliparity, Age>= 35 yrs, >10yr btwn pregnancies, ethinicty, Mother/Sister w/ Pre-E or Previous IUGR Risk for Post- Hemorrhage Initial: NEGATIVE FOR: Multiple Gestation, Previous PPH, Known Clotting Deficiency, Grand Multiparity or Anticoagulation Interventions: IV, awareness Date/Initials: DALE 02/12/21 Risks Reviewed Risks Reviewed Upon Admission: Yes
[2021-03-04 09:30] LABS: HCT 32.8 % (36.0-46.0); HGB 10.5 g/dL (11.2-15.7); MCH 27.3 pg (27.0-33.0); MCV 85.4 fL (80-95); MPV 9.7 fL (8.0-11.0); Platelet Count 237 10^3/uL (130-400); RBC 3.84 10^6/uL (3.93-5.22); RDW 14.4 % (11.7-14.6); RDW-SD 44.4 fL; WBC 8.57 10^3/uL (4.4-10.8)
[2021-03-04 09:46] LABS: Source Nasal/Nares
[2021-03-04] MEDS: Normal Saline Flush 10 ML SYR IVP (11:35)
[2021-03-04] MEDS: Lactated Ringers 1,000 ML 125 ML IV (11:43)
[2021-03-04] MEDS: Oxytocin/Normal Saline 30 UNIT/500 ML BAG 2 UNITS IV (11:43)
--- NOTE | 2021-03-04 13:22 | W.ANESVAS ---
Peripheral IV Placement Date Performed: 03/04/21 Procedure Time: 11:40 Requesting Provider: Krystal Tamayo Procedure Location: Obstetrics Sedation Given (Indicate Dose Given): No Sedation given Patient Mental Status: Awake Laterality: Left Insertion Site: Forearm Size & Type: 20 ga. Dressing: IV Dressing Placed Ultrasound: Not Used Number of Attempts (See previous attempts in note section): 1 Procedure Tolerated: No Complications Procedure Outcome: Successful Performed By: Chey
[2021-03-04 13:50] LABS: COVID-19 PCR Negative (Negative)
--- NOTE | 2021-03-04 13:52 | W.PM.OBNL1 ---
Date of service: 03/04/21 Time of Service: 13:52 Informed Consent Informed Consent: Augmentation of Labor (pitocin) and Induction of Labor Pelvic Exam Dilation: 2 Effacement (%): 70 station: -2 Cervix Position: mid Consistency: soft BISHOPS Score(Cervical Ripeness Score): 7 Vaginal Exam Presentation: Cephalic Comments: AROM to small amount of clear fluid on exam Contractions Monitor Mode: External Contraction Frequency(min): q2-4 Intensity: Mild/Moderate Fetus A Heart Rate Baseline: 150 Variability: Moderate (6-25 BPM) Categories: Category I FHR Rhythm: Regular Characteristics: Normal Accelerations: 15 X 15 Decelerations: None Amniotic Membrane Status: Ruptured Assessment and Plan Assessment and plan (1) Encounter for induction of labor: Status: Acute Assessment and plan: Will continue pitocin. Will wait to see if she leaks more fluid to determine if both layers were ruptured. May consider repeat attempt in a few hours if no significant leakage. Objective Abnormal lab results 03/04/21 Range/Units 09:15 RBC 3.84 L (3.93-5.22) 10^6/uL Hgb 10.5 L (11.2-15.7) g/dL Hct 32.8 L (36.0-46.0) % Temp Pulse Resp BP Pulse Ox 98.2 F 96 H 18 132/70 97 03/04/21 12:49 03/04/21 12:49 03/04/21 12:49 03/04/21 12:49 03/04/21 07:53 Laboratory Results WBC 8.57 10^3/uL (4.4-10.8) 03/04/21 09:15 RBC 3.84 10^6/uL (3.93-5.22) L 03/04/21 09:15 Hgb 10.5 g/dL (11.2-15.7) L 03/04/21 09:15 Hct 32.8 % (36.0-46.0) L 03/04/21 09:15 MCV 85.4 fL (80-95) 03/04/21 09:15 MCH 27.3 pg (27.0-33.0) 03/04/21 09:15 MCHC 32.0 % (32.0-36.0) 03/04/21 09:15 RDW 14.4 % (11.7-14.6) 03/04/21 09:15 Plt Count 237 10^3/uL (130-400) 03/04/21 09:15 MPV 9.7 fL (8.0-11.0) 03/04/21 09:15 COVID-19 Source Nasal/Nares 03/04/21 08:05 SARS-CoV-2 (PCR) Negative (Negative) 03/04/21 08:05 Patient ABO/Rh O Positive 03/04/21 09:15 Antibody Screen NEGATIVE 03/04/21 09:15 Subjective Patient Reports: New Complaints (Feeling the contractions a little more now) Interval history since last seen: There was difficulty with establishing IV access. Pit is now at 8mU. Results Hemoglobin/Hematocrit: Hgb 10.5 g/dL (11.2-15.7) L 03/04/21 09:15 Hct 32.8 % (36.0-46.0) L 03/04/21 09:15 Abnormal Lab Findings: Abnormal Labs 03/04/21 09:15 RBC 3.84 L Hgb 10.5 L Hct 32.8 L
[2021-03-04] MEDS: Acetaminophen 325 MG TAB 650 MG PO (16:27)
[2021-03-04] MEDS: Dibucaine 1% 28 GM TUBE TP (16:28)
[2021-03-04] MEDS: Hamamelis Leaf/Glycerin 100 EACH BOX PR (16:28)
--- NOTE | 2021-03-04 16:31 | W.OBDELIVERY ---
Date of service: 03/04/21 Time of Service: 16:31 OB Labor/ Delivery Information Baby A Delivery Delivery Method: Spontaneaous Presentation: Cephalic Cephalic Position: Vertex Vertex Position: Right Occipital Anterior Cord Description-Baby A: 3 Vessels Amniotic Fluid: Clear Estimated Blood Loss: 200ml Delivery Outcome: Liveborn Infant Transferred: Remains with Mother Note: The pt was found to be fully dilated. She pushed x1 to deliver the 's head in FERN position followed quickly by the shoulders and the rest of the body. There was a loose nuchal cord that reduced over the body. The baby was placed on mom's abdomen. After >1min the cord was clamped x2 and cut. Cord blood collected. The placenta delivered with gentle cord traction and fundal massage and appeared intact. Fundus was firm with good hemostasis. Mom and baby stable at time of note. Providers Doctor: Krystal Tamayo Nurse: Jennifer Burden Nurse: Jaye Carballo Labor/Delivery Information Number of Babies in Womb: 1 Steroids Given: None Reason Steroids Not Administered: N/A Group Beta Strep: Negative Antibiotics Administered: No Rubella Status: Immune Blood Type: O+ Varicella Immunity: Immune Shoulder Dystocia: No Stages of Labor Onset of Labor Date: 03/04/21 Onset of Labor Time: 11:35 Complete Dilatation Date: 03/04/21 Complete Dilatation Time: 15:34 Labor - Stage 1 Duration: 0 minutes ROM Baby A: 03/04/21 ROM Baby A: 13:37 ROM Total Time- Baby A: [id number] Delivery Date-Baby A: 03/04/21 Infant Delivery Time-Baby A: 15:46 Labor Stage 2 Duration: 12 minutes Placenta Delivery Date-Baby A: 03/04/21 Placenta Delivery Time-Baby A: 15:54 Labor-Stage 3 Duration: 8 minutes Total Length of Labor-Baby A: 4 hours and 11 minutes Placenta Status: Delivered Baby A Infant Gender: Male Gestational Status: Term (39-41.6 wks) Gestational Age in Weeks/Days: 39 Weeks and 0 Days weight: 8 lb 11 oz Score-1 Minute Interval(Baby A) Heart Rate-1 minute: 100 BPM or Greater Respiratory Effort- 1 minute: Slow Respiration/Weak Cry Muscle Tone-1 minute: Active Movement Reflex Response-1 minute: Minimal Response Color-1 minute: Pallor or Cyanosis Total Score-1 minute: 6 Score-5 Minute Interval(Baby A) Heart Rate- 5 minute: 100 BPM or Greater Respiratory Effort-5 minute: Spontaneous/Strong Cry Muscle Tone-5 minute: Active Movement Reflex Response-5 minute: Prompt Response Color-5 minute: Bluish Hands or Feet Total Score- 5 minute: 9
[2021-03-05] MEDS: Acetaminophen 325 MG TAB 650 MG PO (01:30)
[2021-03-05] MEDS: Ibuprofen 600 MG TAB PO (05:08)
[2021-03-05 08:00] VITALS: BP 124/77; PULSE 93; RESP 14; TEMP 36.8
--- NOTE | 2021-03-05 10:21 | W.PM.OBDISCH ---
Date of service: 03/05/21 Time of Service: 10:22 DS: Diagnosis Discharge Diagnosis (1) Encounter for induction of labor: Status: Inactive Asessment and Plan: Pt is PPD#1 s/p induction of labor for DM and uncomplicated NVD without repair. She is breast feeding without concern. Minimal bleeding. Pain controlled with ibuprofen and tylenol. Sonny PO, no n/v, +BM. Plan for d/c home s/p 24hrs tonight. (2) (normal spontaneous vaginal delivery): Status: Acute Discharge Plan Discharge Details Reason For Visit: Induction of Labor Admit Date/Time: 03/04/21 07:35 Admit Provider: Krystal Tamayo Attending Provider: Krystal Tamayo Primary Care Provider: Chantal Hendricks Home Meds and New Rx's Prescriptions: No Action albuterol sulfate [ProAir HFA] 90 mcg/actuation HFA aerosol inhaler 2 puff IH 6XD PRN (Reason: shortness of breath or wheezing) Qty: 18 RF: 3 Novolin N Flexpen 100 unit/mL (3 mL) insulin pen 6 unit subcut QPM Qty: 15 RF: 3 (DME) lancets [1st Tier Unilet ComforTouch] 28 gauge misc See Rx Instructions .ROUTE .MEDSUPPLY Qty: 100 RF: 4 diphenhydramine-acetaminophen 50-650 mg tablet 1 tab PO PRN (Reason: for sleep) RF: 0 alcohol swabs [Alcohol Pads] Pads, Medicated 1 pad topical .4 times daily Qty: 200 RF: 1 aspirin 81 mg tablet,delayed release (DR/EC) 81 mg PO DAILY Qty: 90 RF: 3 (DME) Pharmacist Choice Strip See Rx Instructions .ROUTE .MEDSUPPLY Qty: 50 RF: 6 (DME) blood sugar diagnostic Strip See Rx Instructions .ROUTE .MEDSUPPLY Qty: 100 RF: 3 (DME) blood-glucose meter Kit See Rx Instructions .ROUTE .MEDSUPPLY Qty: 1 RF: 0 (DME) pen needle, diabetic [Lite Touch Insulin Pen [place]] 31 gauge x 5/16 needle See Rx Instructions .ROUTE .MEDSUPPLY Qty: 100 RF: 1 prenat.vits,dana,stu-ipqa-hdysj Tablet 1 tab PO DAILY Qty: 90 RF: 3 OB:DS Summary Summary Vaginal Delivery Method: Spontaneaous Episiotomy Description: None Laceration Description: None Laceration Extension: N/A Contraception Discussed Contraception Discussed: Yes Contraceptive Plan: Levonorgestrel Implant, Gender-Baby A: Male weight: 8 lb 11 oz Status at Discharge Functional status at discharge: independent ambulation Overall status at discharge: patient is progressing back to baseline Mental Status: mental status grossly normal Speech and Movement: speech and movement normal Mood: congruent mood Affect: normal affect Exam Physical Exam Vital signs: Temp Pulse Resp BP Pulse Ox 98.2 F 93 H 14 124/77 97 03/05/21 08:00 03/05/21 08:00 03/05/21 08:00 03/05/21 08:00 03/04/21 07:53 Constitutional Constitutional: no acute distress and cooperative Detailed HEENT Exam Head: Present normocephalic and atraumatic Respiratory Exam Respiratory Exam: Normal Abdominal Exam Abdomen: Tender (mildly) Fundal Exam Fundus: Below Umbilicus and Firm Extremities Exam Extremity Exam: negative Calf Tenderness and Edema Detailed Neurological Exam Neurological: Present alert, oriented X3 and CN II-XII intact PFSH All Active Problems (Updated 03/05/21 @ 10:27 by Krystal Tamayo MD) (normal spontaneous vaginal delivery) (Acute Unknown) Modified White class B pregestational diabetes mellitus (Acute) Medical History (Updated 03/05/21 @ 10:27 by Krystal Tamayo MD) Asthma Constipation Surgical History Appendectomy (12/24/16) Family History Mother Essential hypertension Paternal Grandmother , age 54 Breast cancer Asthma Father No problems noted. Sister No problems noted. Brother No problems noted. Son No problems noted. Son No problems noted. Maternal Grandfather No problems noted. Paternal Grandfather , age 76 Stroke Maternal Grandmother Diabetes Depression Social History (Updated 02/24/21 @ 17:13 by Dania Eubanks) Smoking/Tobacco Use Status: Never Second Hand Exposure: Yes Smoking risk assessment performed?: Yes Alcohol Intake: current Alcohol Intake frequency: a few times a month Drug use: Never Caregiver/Support person: No Household members: spouse and children Housing: house Communication Needs: None Do you need help understanding health information?: Never Pets and animals: Yes Pets and animals: cat(s) Sexually active: Yes Do you think of yourself as: straight/heterosexual Current gender identity: female What is your relationship status?: How often do you talk on the phone with friends or family?: three or more times per week How often do you get together with friends or relatives?: three or more times per week How often do you attend rastafari or lutheran services?: 1-3 times per year Do you belong to any clubs or organized social groups?: no Panel score (0-1 are the most socially isolated patients): 2 What type of physical activity do you participate in: walking Duration: 15-30 minutes/day Frequency: daily Special nissa needs: No Seatbelt use: always Helmet use: Yes Helmet use: always Drive intox or ride w/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 Date GA/Weeks # Outcome Route Wgt Sex Labor Lgth Anesthesia Location Prov Complic 02/14/13 39 No Successful vaginal 7 lb 15 oz Male 12 hrs regional [facility] 09/14/16 40 No Successful vaginal 9 lb 12 oz Male 4 hrs [facility] [place] Delivery Date: 02/14/13 nml labor and , epidural, stitches, no complications Emily Manley Delivery Date: 09/14/16 fast labor, used nitrous only, nml , only 4 stitches, no complications Emily Manley DS: Data Vitals/I&O Vitals and I&O: Vital Signs Temperature 98.2 F 03/05/21 08:00 Pulse 93 H 03/05/21 08:00 Pulse Rhythm Regular 03/05/21 08:00 Respiratory Rate 14 03/05/21 08:00 Respiratory Depth Normal 03/04/21 07:37 Blood Pressure 124/77 03/05/21 08:00 Blood Pressure Mean 92 03/05/21 08:00 Pulse Oximetry 97 03/04/21 07:53 Pain Level 0 03/05/21 08:00 Intake & Output 03/04/21 03/04/21 03/05/21 11:59 23:59 11:59 Intake Total 8.584 618.584 / 628.584 Output Total 500 / 2230 1730 / 2230 450 / 450 Balance -490 / -1601.416 -1111.416 / -1601.416 -450 / -450 Weight 234 lb 6 oz Intake: IV .584 618.584 / 628.584 Output: Urine 500 / 1800 1300 / 1800 450 / 450 Blood 430 / 430 Data Completed and Pending Labs on day of discharge: Labs from last 24 hours 03/04/21 03/04/21 09:15 08:05 SARS-CoV-2 (PCR) Negative Antibody Screen NEGATIVE
== END 2021-03-05 18:00 | disposition home or self-care (01) | DRG 807 ==
PROVIDERS: Admitting Provider Obstetrics & Gynecology; PCP Nurse Practitioner; Visit Provider Obstetrics & Gynecology
DX: O24.313 Unspecified pre-existing diabetes mellitus in pregnancy, third trimester (principal); Z37.0 Single live birth; O36.63X0 Maternal care for excessive fetal growth, third trimester, not applicable or unspecified; O40.3XX0 Polyhydramnios, third trimester, not applicable or unspecified; O99.52 Diseases of the respiratory system complicating childbirth; Z3A.39 39 weeks gestation of pregnancy; J45.909 Unspecified asthma, uncomplicated
CPT/HCPCS: 36415; 85027; 86850; 86900; 86901; 87635

== ENCOUNTER 2021-09-27 19:13 | Emergency (ER) | payer MEDICAID, SELFPAY ==
[2021-09-27 19:17] VITALS: BP 131/73; PULSE 90; RESP 18; TEMP 36.6; O2SAT 100
[2021-09-27 19:21] VITALS: RESP 17
--- NOTE | 2021-09-27 19:30 | RT.EKG_ITS ---
APPROVED REPORT Exam: Resting ECG Reason for Exam: dizziness Patient Location: E HR:92 bpm ECG Measurements Heart Rate 92 AXIS PA 131 P 71 QRSd 101 QRS 14 QT 358 T 20 QTc 442 Conclusion Sinus rhythm...normal P axis, V-rate 60- 99
--- NOTE | 2021-09-27 20:14 | ED.GENADUL_ITS ---
Discharge Plan Disposition Patient Disposition: HOME Condition: Improving Discharge Details Chief Complaint: Dizzy/Sync Clinical Impression: Dizziness, Dehydration Primary Care Provider: Chantal Hendricks ED Provider: Rober Dupont Home Meds and New Rx's Prescriptions: No Action albuterol sulfate [ProAir HFA] 90 mcg/actuation HFA aerosol inhaler 2 puff IH 6XD PRN (Reason: shortness of breath or wheezing) Qty: 18 3RF multivitamin Tablet 1 tab PO DAILY levonorgestrel-ethinyl estrad [Kim 28] 0.15-0.03 mg tablet 1 tab PO DAILY Qty: 84 3RF Acetaminophen [Tylenol] 650 mg PO Q4H PRN PRNQty: 60 0RF ibuprofen 600 mg Tablet 600 mg PO Q6H PRN PRNQty: 60 0RF Discharge Instructions Instructions: Dehydration (ED), Dizziness (ED) Additional Instructions: Please stay hydrated. Please resume your primary care physician. Please return the emergency department he develop any worsening symptomatology. Medical Decision Making 25-year-old male presents with fatigue, mild shortness of breath and dizzy sensation, has been outside all day is camping with family, mild respiratory symptoms resolved with inhaler before arrival, lungs clear bilaterally, nontoxic neurologically intact, ambulatory without ataxia, hemodynamically stable no tachycardia or hypoxia no tachypnea, likely dehydration versus heat exposure versus viral syndrome, less likely ACS or PE. Will provide fluid hydration, will obtain basic labs, also dose dexamethasone as patient did have some symptoms of asthma that resolved before arrival; nonischemic EKG, sinus rhythm; close reassessment after meds and fluid bolus, likely dc with return precautions 22: 26 patient respiratory feeling much better fluids. Given home care instructions and return precautions. HPI General Date/Time Provider Initiated Documentation: 09/27/21 20:04 . HPI Narrative: 25-year-old female history of asthma presents with dizzy sensation described as a lightheaded sensation as well as mild fatigue and shortness of breath, wheezing symptomatology improved after she took her inhaler, has been outside all day today is camping with family trying to stay hydrated is much as possible. Denies chest pain headache nausea vomiting or diarrhea. No history of thromboembolic disease, did start oral contraceptive agent approximately 1 week ago. Patient has had COVID twice this year most recently in July. Related Data Home Medications Medication Instructions Recorded Confirmed albuterol sulfate 90 mcg/actuation 2 puff inhalation 6XD PRN 02/24/21 09/27/21 aerosol inhaler (ProAir HFA) shortness of breath or wheezing #18 grams Acetaminophen [Tylenol] 650 mg PO Q4H PRN PRN #60 tabs 03/05/21 09/27/21 ibuprofen 600 mg tablet 600 mg PO Q6H PRN PRN #60 tabs 03/05/21 09/27/21 multivitamin 1 tab PO DAILY 09/07/21 09/27/21 levonorgestrel 0.15 mg-ethinyl 1 tab PO DAILY #84 tabs 09/16/21 09/27/21 estradiol 0.03 mg tablet (Kim 28) Previous Rx's Medication Instructions Recorded albuterol sulfate 90 mcg/actuation 2 puff inhalation 6XD PRN 02/24/21 aerosol inhaler (ProAir HFA) shortness of breath or wheezing #18 grams Acetaminophen [Tylenol] 650 mg PO Q4H PRN PRN #60 tabs 03/05/21 ibuprofen 600 mg tablet 600 mg PO Q6H PRN PRN #60 tabs 03/05/21 levonorgestrel 0.15 mg-ethinyl 1 tab PO DAILY #84 tabs 09/16/21 estradiol 0.03 mg tablet (Kim 28) Allergies Allergy/AdvReac Type Severity Reaction Status Date / Time No Known Allergies Allergy Verified 09/16/21 15:25 General Stated Complaint: Dizzy/Sync TEO: 3 Review of Systems Narrative: Review of Systems Constitutional: Fatigue Eyes: negative ENT: negative Cardiovascular: negative Respiratory: Shortness of breath Gastrointestinal: negative : negative Musculoskeletal: negative Skin: negative Neurologic: Lightheadedness Psych: negative PFSH All Active Problems (Updated 09/27/21 @ 22:29 by Rober Dupont MD) Dizziness (Acute) Dehydration (Acute) Tick bite with subsequent removal of tick (Acute) IUD migration (Acute) IUD surveillance (Acute) Abnormal uterine bleeding (AUB) (Acute) MARTHA (stress urinary incontinence, female) (Acute) Medical History Asthma Constipation Modified White class B pregestational diabetes mellitus Presence of IUD Surgical History Appendectomy (12/24/16) Family History Mother Essential hypertension Paternal Grandmother , age 54 Breast cancer Asthma Father No problems noted. Sister No problems noted. Brother No problems noted. Son No problems noted. Son No problems noted. Maternal Grandfather No problems noted. Paternal Grandfather , age 76 Stroke Maternal Grandmother Diabetes Depression Social History (Updated 09/07/21 @ 10:03 by Kimberly Lewis) Smoking/Tobacco Use Status: Never Second Hand Exposure: Yes Smoking risk assessment performed?: Yes Alcohol Intake: current Alcohol Intake frequency: a few times a month Drug use: Never Caregiver/Support person: No Household members: spouse and children Housing: house Communication Needs: None Do you need help understanding health information?: Never Pets and animals: Yes Pets and animals: cat(s) Sexually active: Yes Do you think of yourself as: straight/heterosexual Current gender identity: female What is your relationship status?: How often do you talk on the phone with friends or family?: three or more times per week How often do you get together with friends or relatives?: three or more times per week How often do you attend worship or rastafari services?: 1-3 times per year Do you belong to any clubs or organized social groups?: no Panel score (0-1 are the most socially isolated patients): 2 What type of physical activity do you participate in: walking Duration: 15-30 minutes/day Frequency: daily Special nissa needs: No Seatbelt use: always Helmet use: Yes Helmet use: always Drive intox or ride w/intox taxicab driver: No Do you feel safe at home: Yes Do you feel safe in your relationship?: Yes Victim of physical abuse: No Victim of emotional abuse: No Victim of sexual abuse: No Would you like helpful sources: No Female Reproductive History Menstrual control method: pills History History 3 Para 3 Hx # Term Pregnancies 3 Multiple births 0 Hx # Pregnancies 0 Ectopic pregnancies 0 AB induced 0 Hx Number of Living Children 3 AB spontaneous 0 Past Pregnancies Del. Date GA/Weeks # Preg Succ Route Wgt Sex Labor Lgth Anesth esia Location Prov Complic 02/14/13 39 No vaginal 3600.389 g Male 12 hrs [facility] [place] 06/20/17 40 No vaginal 4422.526 g Male 4 hrs [facility] [place] 03/04/21 39 No vaginal 3940.584 g Male 4hr [facility] [place] Delivery Date: 02/14/13 Last Updated by: Emily Manley nml labor and , epidural, stitches, no complications Delivery Date: 09/14/16 Last Updated by: Emily Manley fast labor, used nitrous only, nml , only 4 stitches, no complications Delivery Date: 03/04/21 Last Updated by: Krystal Tamayo M.D. Induction for DM - Cherrie Exam Narrative Exam Narrative: Physical Examination General: alert, awake, cooperative, resting comfortably, no acute distress HEENT: normocephalic, atraumatic; PERRL, EOM intact, conjunctiva normal; no nasal discharge; moist mucous membranes, oral and pharyngeal mucosa normal, tolerating secretions Neck: supple, trachea midline; full ROM Chest: normal to inspection Respiratory: normal respiratory effort, speaking in full sentences, clear to auscultation, no wheezing, rales or rhonchi Cardiac: regular rate, regular rhythm, S1S2 intact, no murmurs rubs or gallops GI: abdomen soft, non-tender, non-distended; no palpable mass or hepatosplenomegaly Skin: no lesions, rashes or trauma appreciated Neuro: AAOx3, normal speech, moving all extremities, cranial nerves intact, strength intact ambulatory without assistance no ataxia Psych: Appropriate mood and affect Course Vital Signs Vital signs: Vital Signs Temperature 36.6 C 09/27/21 19:17 Pulse 90 09/27/21 19:17 Respiratory Rate 18 09/27/21 19:17 Blood Pressure 131/73 09/27/21 19:17 Pulse Oximetry 100 09/27/21 19:17 Temperature 36.6 C 09/27/21 19:17 Temperature Source Temporal Artery Scan 09/27/21 19:17 Pulse 90 09/27/21 19:17 Respiratory Rate 17 09/27/21 19:21 Respiratory Effort Non-Labored 09/27/21 19:21 Respiratory Depth Normal 09/27/21 19:21 Respiratory Pattern Normal 09/27/21 19:21 Blood Pressure 131/73 09/27/21 19:17 Blood Pressure Position Supine 09/27/21 19:17 Pulse Oximetry 100 09/27/21 19:17 Oxygen Delivery Method Room Air 09/27/21 19:17 Oxygen Flow Rate 0 09/27/21 19:17 Pain Level 0 09/27/21 19:17
[2021-09-27 20:27] LABS: Bilirubin Negative (Negative); Blood Trace-intact (Negative); Clarity Clear (Clear); Glucose Negative (Negative); Ketones Negative (Negative); Leukocyte Esterase Negative (Negative); Nitrite Negative (Negative); Specific Gravity 1.015 (1.005-1.025); Urobilinogen 0.2 EU/dL (Up TO 0.2); pH 5.5 (5-8)
[2021-09-27 20:32] LABS: Epithelial Cells Moderate HPF (Negative); RBC 0-2 HPF (0-2); WBC 0-2 HPF (0-5)
[2021-09-27 20:33] LABS: Bacteria Rare HPF (Negative); C & S Indicated? No; Casts Negative LPF (Negative); Crystals Negative HPF (Negative); Mucus Negative (Negative)
[2021-09-27] MEDS: Dexamethasone 10 MG/ML VIAL IVP (20:35)
[2021-09-27] MEDS: Normal Saline 1,000 ML 1000 ML IV (20:35)
[2021-09-27 20:36] LABS: Abs Immature Grans 0.02 10^3/uL (0.0-0.06); Absolute Basophil Count 0.03 10^3/uL (0.0-0.2); Absolute Eosinophil Count 0.02 10^3/uL (0.0-0.7); Absolute Lymphocyte Count 1.36 10^3/uL (1.2-3.4); Absolute Monocyte Count 0.75 10^3/uL (0.1-0.8); Absolute Neutrophil Count 6.69 10^3/uL (1.2-6.7); Basophils % 0.3; Eosinophils % 0.2; HCT 38.9 % (36.0-46.0); HGB 12.3 g/dL (11.2-15.7); Immature Grans % 0.2; Lymphocytes % 15.3; MCH 26.1 pg (27.0-33.0); MCHC 31.6 % (32.0-36.0); MCV 83 fL (80-95); MPV 9.3 fL (8.0-11.0); Monocytes % 8.5; Neutrophils % 75.5; Platelet Count 249 10^3/uL (130-400); RBC 4.71 10^6/uL (3.93-5.22); RDW 13.4 % (11.7-14.6); WBC 8.87 10^3/uL (4.4-10.8)
[2021-09-27 21:03] LABS: ALT 30 U/L (14-59); AST 16 U/L (15-37); Albumin 3.9 g/dL (3.4-5.0); Alkaline Phosphatase 147 U/L (46-116); Anion Gap 10.5 mmol/L (3-11); BUN 12 mg/dL (7-18); Bilirubin, Total 0.3 mg/dL (0.2-1.0); CO2 25.5 mmol/L (21.0-32.0); CREATININE 0.8 mg/dL (0.55-1.02); Calcium 9.3 mg/dL (8.5-10.1); Chloride 105 mmol/L (98-107); Glucose 100 mg/dL (74-106); Potassium 3.5 mmol/L (3.5-5.1); Sodium 141 mmol/L (136-145); Total Protein 7.4 g/dL (6.4-8.2)
[2021-09-27 21:13] LABS: COVID-19 PCR Negative (Negative); Influenza A PCR Negative (Negative); Influenza B PCR Negative (Negative); RSV PCR Negative (Negative)
[2021-09-27 21:16] LABS: Source Nasopharynx
[2021-09-27 22:49] VITALS: BP 128/76; PULSE 78; RESP 18; TEMP 36.6; O2SAT 98
== END 2021-09-27 22:50 | disposition home or self-care (01) ==
PROVIDERS: Emergency Provider Emergency Medicine; PCP Nurse Practitioner
DX: E86.0 Dehydration (principal); J45.909 Unspecified asthma, uncomplicated; Z20.822 Contact with and (suspected) exposure to COVID-19; Z77.22 Contact with and (suspected) exposure to environmental tobacco smoke (acute) (chronic)
CPT/HCPCS: 36415; 80053; 81025; 87637; 93005; 96361; 96374; 99284; 81003; 81015; 85025; 93010; J1100

== ENCOUNTER 2022-01-01 11:43 | Outpatient (CLI) | payer MEDICAID, SELFPAY ==
[2022-01-01 12:19] LABS: Abs Immature Grans 0.01 10^3/uL (0.0-0.06); Absolute Basophil Count 0.04 10^3/uL (0.0-0.2); Absolute Eosinophil Count 0.02 10^3/uL (0.0-0.7); Absolute Lymphocyte Count 2.33 10^3/uL (1.2-3.4); Absolute Monocyte Count 0.39 10^3/uL (0.1-0.8); Absolute Neutrophil Count 3.32 10^3/uL (1.2-6.7); Basophils % 0.7; Eosinophils % 0.3; HCT 39.4 % (36.0-46.0); HGB 12.9 g/dL (11.2-15.7); Immature Grans % 0.2; Lymphocytes % 38.1; MCH 26.4 pg (27.0-33.0); MCHC 32.7 % (32.0-36.0); MCV 81 fL (80-95); MPV 9.5 fL (8.0-11.0); Monocytes % 6.4; Neutrophils % 54.3; Platelet Count 282 10^3/uL (130-400); RBC 4.88 10^6/uL (3.93-5.22); RDW 13.3 % (11.7-14.6); RDW-SD 38.9 fL; WBC 6.11 10^3/uL (4.4-10.8)
[2022-01-01 12:54] LABS: ALT 21 U/L (14-59); AST 13 U/L (15-37); Albumin 3.6 g/dL (3.4-5.0); Alkaline Phosphatase 116 U/L (46-116); Anion Gap 5.3 mmol/L (3-11); BUN 10 mg/dL (7-18); Bilirubin, Total 0.4 mg/dL (0.2-1.0); CO2 26.7 mmol/L (21.0-32.0); CREATININE 0.7 mg/dL (0.55-1.02); Calcium 9.2 mg/dL (8.5-10.1); Chloride 104 mmol/L (98-107); Estimated GFR 120.74 (mL/min/1.73m2); Glucose 81 mg/dL (74-106); Potassium 3.5 mmol/L (3.5-5.1); Sodium 136 mmol/L (136-145); Total Protein 7.6 g/dL (6.4-8.2)
== END 2022-01-01 11:44 | disposition home or self-care (01) ==
LOC: LOS 11:44
PROVIDERS: PCP Nurse Practitioner; Referring Provider Family Medicine; Visit Provider Family Medicine
DX: R42 Dizziness and giddiness (principal)
CPT/HCPCS: 36415; 80053; 84443; 85025

== ENCOUNTER 2022-03-28 20:09 | Emergency (ER) | payer MEDICAID, SELFPAY ==
[2022-03-28 20:12] VITALS: BP 171/81; PULSE 109; RESP 18; TEMP 37.5; O2SAT 98
--- NOTE | 2022-03-28 20:30 | ED.GENADUL_ITS ---
Discharge Plan Disposition Patient Disposition: Home Condition: Improving Discharge Details Chief Complaint: EarProblem Clinical Impression: Viral URI, Cerumen impaction Primary Care Provider: Stephie Sahni ED Provider: Rober Dupont Home Meds and New Rx's Prescriptions: No Action albuterol sulfate [ProAir HFA] 90 mcg/actuation HFA aerosol inhaler 2 puff IH 6XD PRN (Reason: shortness of breath or wheezing) Qty: 18 3RF levonorgestrel-ethinyl estrad [Douglas 28] 0.15-0.03 mg tablet 1 tab PO DAILY Qty: 84 3RF meclizine 25 mg tablet 25 mg PO DAILY PRN (Reason: dizziness) Qty: 10 0RF albuterol sulfate 1.25 mg/3 mL solution for nebulization 1.25 mg inhalation QID PRN (Reason: shortness of breath or wheezing) Qty: 75 1RF Discharge Instructions Instructions: Upper Respiratory Infection (ED) Additional Instructions: Consider using Mucinex at home. Continue with ibuprofen and/or acetaminophen for pain. Follow-up with your primary care physician. Please return to the emergency department for any worsening symptoms Medical Decision Making 26-year-old female history of cerumen impaction presents with left ear fullness and pain, afebrile nontoxic. Slightly tachycardic likely related to viral syndrome, endorses nasal congestion and dry cough over the past week. Patient does have cerumen impaction of her left external auditory canal, easily removed with loop curette. TM now able to be visualized is clear nonbulging. Patient's fullness in ear sensation is likely related to her sinus congestion and eustachian blockage. Counseled her to continue with Motrin Tylenol at home, consider using Mucinex. No evidence of deep space infection of head or neck, no evidence of mastoiditis. No evidence of otitis media or otitis externa. Home care instructions and return precautions given HPI General Date/Time Provider Initiated Documentation: 03/28/22 20:13 . HPI Narrative: 26-year-old female history of cerumen impaction presents with left ear fullness, she has been battling an upper respiratory infection with sinus congestion and dry cough over the past several days. Feels a fullness and a pressure in her left ear. Related Data Home Medications Medication Instructions Recorded Confirmed albuterol sulfate 90 mcg/actuation 2 puff inhalation 6XD PRN 02/24/21 01/01/22 aerosol inhaler (ProAir HFA) shortness of breath or wheezing #18 grams levonorgestrel 0.15 mg-ethinyl 1 tab PO DAILY #84 tabs 09/16/21 01/01/22 estradiol 0.03 mg tablet (Kim 28) meclizine 25 mg tablet 25 mg PO DAILY PRN dizziness #10 01/01/22 01/01/22 tabs albuterol sulfate 1.25 mg/3 mL 1.25 mg (3 mL) inhalation QID PRN 03/25/22 solution for nebulization shortness of breath or wheezing #75 mL Previous Rx's Medication Instructions Recorded albuterol sulfate 90 mcg/actuation 2 puff inhalation 6XD PRN 02/24/21 aerosol inhaler (ProAir HFA) shortness of breath or wheezing #18 grams levonorgestrel 0.15 mg-ethinyl 1 tab PO DAILY #84 tabs 09/16/21 estradiol 0.03 mg tablet (Kim 28) meclizine 25 mg tablet 25 mg PO DAILY PRN dizziness #10 01/01/22 tabs albuterol sulfate 1.25 mg/3 mL 1.25 mg (3 mL) inhalation QID PRN 03/25/22 solution for nebulization shortness of breath or wheezing #75 mL Allergies Allergy/AdvReac Type Severity Reaction Status Date / Time No Known Allergies Allergy Verified 01/01/22 11:06 General Stated Complaint: EarProblem TEO: 4 Review of Systems Narrative: Review of Systems Constitutional: negative Eyes: negative ENT: Ear pain Cardiovascular: negative Respiratory: negative Gastrointestinal: negative : negative Musculoskeletal: negative Skin: negative Neurologic: negative Psych: negative PFSH All Active Problems (Updated 03/28/22 @ 20:33 by Rober Dupont MD) Asthma (Chronic) Viral URI (Acute) Cerumen impaction (Acute) Medical History (Updated 03/28/22 @ 20:33 by Rober Dupont MD) Constipation Modified White class B pregestational diabetes mellitus Surgical History (Updated 01/01/22 @ 11:27 by Earlene Perez MD) S/P appendectomy (2017) Family History Mother Essential hypertension Paternal Grandmother , age 54 Breast cancer Asthma Father No problems noted. Sister No problems noted. Brother No problems noted. Son No problems noted. Son No problems noted. Maternal Grandfather No problems noted. Paternal Grandfather , age 76 Stroke Maternal Grandmother Diabetes Depression Social History (Updated 09/07/21 @ 10:03 by Kimberly Lewis) Smoking/Tobacco Use Status: Never Second Hand Exposure: Yes Smoking risk assessment performed?: Yes Alcohol Intake: current Alcohol Intake frequency: a few times a month Drug use: Never Caregiver/Support person: No Household members: spouse and children Housing: house Communication Needs: None Do you need help understanding health information?: Never Pets and animals: Yes Pets and animals: cat(s) Sexually active: Yes Do you think of yourself as: straight/heterosexual Current gender identity: female What is your relationship status?: How often do you talk on the phone with friends or family?: three or more times per week How often do you get together with friends or relatives?: three or more times per week How often do you attend roman catholic or tenriism services?: 1-3 times per year Do you belong to any clubs or organized social groups?: no Panel score (0-1 are the most socially isolated patients): 2 What type of physical activity do you participate in: walking Duration: 15-30 minutes/day Frequency: daily Special nissa needs: No Seatbelt use: always Helmet use: Yes Helmet use: always Drive intox or ride w/intox local city driver: No Do you feel safe at home: Yes Do you feel safe in your relationship?: Yes Victim of physical abuse: No Victim of emotional abuse: No Victim of sexual abuse: No Would you like helpful sources: No Female Reproductive History Menstrual control method: pills History History 3 Para 3 Hx # Term Pregnancies 3 Multiple births 0 Hx # Pregnancies 0 Ectopic pregnancies 0 AB induced 0 Hx Number of Living Children 3 AB spontaneous 0 Past Pregnancies Del. Date GA/Weeks # Preg Succ Route Wgt Sex Labor Lgth Anesth esia Location Prov [facility] 02/14/13 39 No vaginal 3600.389 g Male 12 hrs regional [facility] [place] 09/14/16 40 No vaginal 4422.526 g Male 4 hrs [facility] [place] 03/04/21 39 No vaginal 3940.584 g Male 4hr [facility] - [place] Delivery Date: 02/14/13 Last Updated by: Emily Manley nml labor and , epidural, stitches, no complications Delivery Date: 09/14/16 Last Updated by: Emily Manley fast labor, used nitrous only, nml , only 4 stitches, no complications Delivery Date: 03/04/21 Last Updated by: Krystal Tamayo M.D. Induction for DM - Cherrie Exam Narrative Exam Narrative: Physical Examination General: alert, awake, cooperative, resting comfortably, no acute distress HEENT: normocephalic, atraumatic; PERRL, EOM intact, conjunctiva normal; no nasal discharge; moist mucous membranes, oral and pharyngeal mucosa normal, tolerating secretions; cerumen impaction of left external auditory canal Neck: supple, trachea midline; full ROM Chest: normal to inspection Respiratory: normal respiratory effort, speaking in full sentences, clear to auscultation, no wheezing, rales or rhonchi Cardiac: regular rate, regular rhythm, S1S2 intact, no murmurs rubs or gallops GI: abdomen soft, non-tender, non-distended; no palpable mass or hepatosplenomegaly Skin: no lesions, rashes or trauma appreciated Neuro: AAOx3, normal speech, moving all extremities Psych: Appropriate mood and affect Course Vital Signs Vital signs: Vital Signs Temperature 37.5 C 03/28/22 20:12 Pulse 109 H 03/28/22 20:12 Respiratory Rate 18 03/28/22 20:12 Blood Pressure 171/81 H 03/28/22 20:12 Pulse Oximetry 98 03/28/22 20:12 Temperature 37.5 C 03/28/22 20:12 Pulse 109 H 03/28/22 20:12 Respiratory Rate 18 03/28/22 20:12 Respiratory Effort 03/28/22 20:17 Blood Pressure 171/81 H 03/28/22 20:12 Blood Pressure Position Sitting 03/28/22 20:12 Pulse Oximetry 98 03/28/22 20:12 Oxygen Delivery Method Room Air 03/28/22 20:12 Oxygen Flow Rate 0 03/28/22 20:12 Pain Level 6 03/28/22 20:12
[2022-03-28 20:39] VITALS: BP 159/84; PULSE 100; RESP 18; O2SAT 99
== END 2022-03-28 20:40 | disposition home or self-care (01) ==
PROVIDERS: Emergency Provider Emergency Medicine; PCP Nurse Practitioner Family
DX: J06.9 Acute upper respiratory infection, unspecified (principal); H61.22 Impacted cerumen, left ear
CPT/HCPCS: 69210; 99282

== ENCOUNTER 2022-08-18 12:50 | Outpatient (REF) | payer MEDICAID, SELFPAY | END 2022-08-18 12:51 | disposition home or self-care (01) | LOC: LBN 12:50 | PROVIDERS: PCP Nurse Practitioner Family; Visit Provider Nurse Practitioner Family | DX: J02.9 Acute pharyngitis, unspecified (principal) | CPT/HCPCS: 87070 ==

== ENCOUNTER 2023-04-15 09:32 | Outpatient (CLI) | payer MEDICAID, SELFPAY ==
[2023-04-15 14:03] LABS: HGB 12.9 g/dL (11.2-15.7); MCH 26.4 pg (27.0-33.0); MCHC 32.3 % (32.0-36.0); MCV 82 fL (80-95); Platelet Count 291 10^3/uL (130-400); RBC 4.88 10^6/uL (3.93-5.22); RDW 13.5 % (11.7-14.6); RDW-SD 39.8 fL; WBC 8.26 10^3/uL (4.4-10.8)
[2023-04-15 14:12] LABS: Hemoglobin A1C 5.7 % (<5.7)
[2023-04-15 14:25] LABS: ALT 33 U/L (14-59); AST 15 U/L (15-37); Albumin 3.4 g/dL (3.4-5.0); Alkaline Phosphatase 122 U/L (46-116); Anion Gap 12.2 mmol/L (3-11); BUN 9 mg/dL (7-18); Bilirubin, Total 0.3 mg/dL (0.2-1.0); CO2 22.8 mmol/L (21.0-32.0); CREATININE 0.8 mg/dL (0.55-1.02); Calcium 8.9 mg/dL (8.5-10.1); Chloride 105 mmol/L (98-107); Estimated GFR 102.22 (mL/min/1.73m2); Glucose 106 mg/dL (74-106); Potassium 3.6 mmol/L (3.5-5.1); Sodium 140 mmol/L (136-145); Total Protein 7.4 g/dL (6.4-8.2)
== END 2023-04-15 09:33 | disposition home or self-care (01) ==
LOC: LBO 09:33
PROVIDERS: PCP Nurse Practitioner Family; Visit Provider Nurse Practitioner Family
DX: Z00.00 Encounter for general adult medical examination without abnormal findings (principal)
CPT/HCPCS: 36415; 80053; 85027; 83036

== ENCOUNTER 2023-08-10 05:05 | Outpatient (CLI) | payer MEDICAID, SELFPAY ==
[2023-08-10 16:28] LABS: Panorama Kit Sent via Fed Ex
[2023-08-10 16:35] LABS: Glucose,1 Hr (Glucola) 187 mg/dL (80-140)
[2023-08-10 17:28] LABS: Abs Immature Grans 0.02 10^3/uL (0.0-0.06); Absolute Basophil Count 0.02 10^3/uL (0.0-0.2); Absolute Eosinophil Count 0.02 10^3/uL (0.0-0.7); Absolute Monocyte Count 0.41 10^3/uL (0.1-0.8); Absolute Neutrophil Count 5.96 10^3/uL (1.2-6.7); Basophils % 0.2 %; Eosinophils % 0.2 %; HCT 35.3 % (36.0-46.0); HGB 11.7 g/dL (11.2-15.7); Immature Grans % 0.2 %; Lymphocytes % 26.3 %; MCH 27.3 pg (27.0-33.0); MCHC 33.1 % (32.0-36.0); MCV 83 fL (80-95); MPV 9.5 fL (8.0-11.0); Monocytes % 4.7 %; Neutrophils % 68.4 %; Platelet Count 273 10^3/uL (130-400); RBC 4.28 10^6/uL (3.93-5.22); RDW 14.3 % (11.7-14.6); RDW-SD 42.4 fL; WBC 8.73 10^3/uL (4.4-10.8)
[2023-08-11 21:38] LABS: Hepatitis B Surface Ag Negative (Negative); Hepatitis C Ab w Rflx HCV PCR Negative (Negative)
[2023-08-11 21:41] LABS: HIV-1/2 Ag & Ab Screen Negative (Negative)
[2023-08-12 13:03] LABS: Varicella IgG Antibody Positive (See Note)
[2023-08-12 16:18] LABS: Rubella IgG Ab (UVM) Positive (See Note)
[2023-08-14 15:00] LABS: Syphilis IgG w/Reflex Nonreactive (Nonreactive)
== END 2023-08-10 05:06 | disposition home or self-care (01) ==
LOC: LBO 05:05
PROVIDERS: Advanced Practice Midwife; PCP Nurse Practitioner Family; Visit Provider Advanced Practice Midwife
DX: Z34.93 Encounter for supervision of normal pregnancy, unspecified, third trimester (principal); Z3A.38 38 weeks gestation of pregnancy
CPT/HCPCS: 36415; 82950; 86787; 86803; 86850; 86900; 86901; 87340; 87389; 85025; 86762; 86780

== ENCOUNTER 2023-08-10 15:58 | Outpatient (REF) | payer MEDICAID, SELFPAY ==
[2023-08-12 14:38] LABS: Chlamydia Result Negative (Negative); GC Result Negative (Negative)
== END 2023-08-10 15:59 | disposition home or self-care (01) ==
LOC: LBN 15:58
PROVIDERS: PCP Nurse Practitioner Family; Visit Provider Advanced Practice Midwife
DX: Z34.90 Encounter for supervision of normal pregnancy, unspecified, unspecified trimester (principal); B96.89 Other specified bacterial agents as the cause of diseases classified elsewhere
CPT/HCPCS: 87491; 87591; 87086

== ENCOUNTER 2023-08-26 00:53 | Outpatient (CLI) | payer MEDICAID, SELFPAY ==
[2023-08-26 09:32] LABS: Glucose 1 Hour 202 mg/dL
[2023-08-26 11:46] LABS: Glucose 3 Hour 90 mg/dL
== END 2023-08-26 00:54 | disposition home or self-care (01) ==
LOC: LBO 00:53
PROVIDERS: PCP Nurse Practitioner Family; Visit Provider Advanced Practice Midwife
DX: Z34.93 Encounter for supervision of normal pregnancy, unspecified, third trimester (principal); Z3A.12 12 weeks gestation of pregnancy
CPT/HCPCS: 36415; 82951

== ENCOUNTER → 2023-10-12 02:03 | Outpatient (CLI) | payer MEDICAID, SELFPAY ==
--- NOTE | 2023-10-12 12:00 | DI.US_ITS ---
Exam(s) US OB 2-3 TRIMESTER EXAM: US OB 2-3 TRIMESTER CLINICAL HISTORY: ,z34.90. TECHNIQUE: Transabdominal obstetrical ultrasound performed. COMPARISON: US POCUS EXAM from 07/15/2023 FINDINGS: Number of fetuses: One. position: Vertex. Placental grade: 1 Placental location: Posterior. No evidence of previa. BIOMETRIC DATA: BPD: 50mm = 21+2 weeks HC: 184mm = 20+ 5 weeks AC: 158mm = 20+ 6 weeks FL: 36mm = 21+3 weeks Cisterna Magna: 4 mm Cerebellum: 2.1 cm EFW: 399 grms 96% Composite Age: 21+1 weeks EDC by US: 21 February 2024 Heart Rate: 141BPM Amniotic fluid : Amount of fluid is within normal limits. ANATOMICAL SURVEY: Four-chambered heart: Unremarkable. LVOT: Unremarkable. RVOT: Unremarkable. Left-sided stomach: Unremarkable. urinary bladder: Unremarkable. Bilateral kidneys: Unremarkable. Three-vessel cord: Unremarkable. Cord insertion: Unremarkable. Posterior fossa:Unremarkable. ventricles: Unremarkable. nose: Unremarkable. lips: Unremarkable. palate: Unremarkable. spine: Unremarkable. Two arms and two legs: Unremarkable. IMPRESSION: 1. Single live intrauterine gestation with composite age is 21+1 weeks, slightly above the normal ran ge. 2. Normal anatomic survey. DATA REPOSITORY:
== END ==
PROVIDERS: PCP Nurse Practitioner Family; Visit Provider Advanced Practice Midwife
DX: Z34.92 Encounter for supervision of normal pregnancy, unspecified, second trimester (principal); Z3A.21 21 weeks gestation of pregnancy
CPT/HCPCS: 76805

== ENCOUNTER 2023-12-20 02:26 | Outpatient (CLI) | payer MEDICAID, SELFPAY ==
[2023-12-20 16:31] LABS: Abs Immature Grans 0.03 10^3/uL (0.0-0.06); Absolute Basophil Count 0.03 10^3/uL (0.0-0.2); Absolute Eosinophil Count 0.04 10^3/uL (0.0-0.7); Absolute Lymphocyte Count 1.93 10^3/uL (1.2-3.4); Absolute Monocyte Count 0.58 10^3/uL (0.1-0.8); Absolute Neutrophil Count 5.46 10^3/uL (1.2-6.7); Basophils % 0.4 %; Eosinophils % 0.5 %; HCT 35.7 % (36.0-46.0); HGB 11.2 g/dL (11.2-15.7); Immature Grans % 0.4 %; Lymphocytes % 23.9 %; MCH 27.2 pg (27.0-33.0); MCHC 31.4 % (32.0-36.0); MCV 87 fL (80-95); MPV 9.5 fL (8.0-11.0); Monocytes % 7.2 %; Neutrophils % 67.6 %; Platelet Count 227 10^3/uL (130-400); RBC 4.12 10^6/uL (3.93-5.22); RDW 14.8 % (11.7-14.6); RDW-SD 46.8 fL; WBC 8.07 10^3/uL (4.4-10.8)
== END 2023-12-20 02:27 | disposition home or self-care (01) ==
LOC: LBO 02:26
PROVIDERS: PCP Nurse Practitioner Family; Visit Provider Obstetrics & Gynecology
DX: O26.893 Other specified pregnancy related conditions, third trimester (principal); Z67.91 Unspecified blood type, Rh negative; Z34.93 Encounter for supervision of normal pregnancy, unspecified, third trimester
CPT/HCPCS: 36415; 86850; 86900; 86901; 85025

== ENCOUNTER 2024-01-05 01:09 | Outpatient (CLI) | payer MEDICAID, SELFPAY ==
--- NOTE | 2024-01-05 12:35 | DI.US_ITS ---
Exam(s) US OB SCHUYLER WEIGHT EXAM: US OB SCHUYLER WEIGHT CLINICAL HISTORY: growth,gestational diabetes,O24.419. TECHNIQUE: Transabdominal obstetrical ultrasound was performed. COMPARISON: US US OB 2-3 TRIMESTER from 10/12/2023 FINDINGS: There is a single viable intrauterine gestation with cardiac activity identified-149 bpm The fetus is presently in cephalic position . Amniotic fluid: There is a upper normal amount of amniotic fluid with an SCHUYLER of 19.13cm. Placental location: The placenta is posterior grade 2,with no evidence of placenta previa. Dating parameters place this at approximately 35 weeks gestational age, implying NAYA of . BPD measures 35 weeks and 3 days HC measures 36 weeks and 3 days AC measures 34 weeks and 3 days FL measures 33 weeks and 5 days Estimated weight is 2450 gm-5 pound 6 ounces Fetus is at the greater than 97th percentile on the Hadlock scale. ANATOMY: There appears to be a sliver of perinephric fluid on the left side. Both kidneys othe rwise unremarkable and there is no hydronephrosis. The urinary bladder appears unremarkable. stomach identified. Gallbladder is identified. A 2nd tubular structure lateral to the stomach was intermittently identified during this study. This probably represents some fluid within the spl enic flexure of the colon. There is no fluid in the abdominal wall. IMPRESSION:: Viable 3rd trimester gestation, as described above. Incidentally noted is a small amount of perinephric fluid around the left kidney (the left feta l kidney itself appears unremarkable, as does the opposite-right kidney and urinary bladder). Also o ther finding as above. Recommend repeat scanning in a few weeks time. DATA REPOSITORY:
== END 2024-01-05 01:29 ==
LOC: DI 01:09
PROVIDERS: PCP Nurse Practitioner Family; Visit Provider Obstetrics & Gynecology
DX: Z34.93 Encounter for supervision of normal pregnancy, unspecified, third trimester (principal); Z3A.34 34 weeks gestation of pregnancy
CPT/HCPCS: 76816

== ENCOUNTER 2024-01-16 08:50 | Outpatient (CLI) | payer MEDICAID, SELFPAY ==
[2024-01-16 09:10] VITALS: BP 123/70; PULSE 88; TEMP 36.7
[2024-01-16 09:11] VITALS: BP 123/70; PULSE 88
[2024-01-16 09:56] VITALS: BP 123/70; PULSE 88; RESP 17; TEMP 36.7; O2SAT 99
--- NOTE | 2024-01-16 17:31 | W.OBNST ---
Date of service: 01/16/24 Time of Service: 12:00 NST Evaluation Reason for NST Reasons for Nonstress Test: OTHER, SEE COMMENT Reason for NST Other: not feeling well Gestational Age Gestational Age in Weeks and Days: 33 Weeks and 4Days Test and Monitor Explained Test/Monitor Explained: Test Explained, Monitor Explained and Patient Verbalized Understanding Vital Signs Blood Pressure: 123/70 Pulse: 88 Temperature: 98.0 F Urine Results Urine Protein: Negative Urine Ketones: Positive Urine Glucose: Negative Urine Blood: Negative NST Information Date on Monitor: 01/16/24 Time on Monitor: 09:06 Date off Monitor: 01/16/24 Time off Monitor: 10:02 Total Time on Monitor: 56 NST Interventions: PO Hydration Contraction Frequency: 4-5 NST Evaluation Patient States Movement: Present FHR Baseline: 135 Variability: Moderate 6-25 bpm Accelerations: 15x15 Decelerations: None NST Results: Reactive Note Ultrasound Done: N/A. NST Note Note: Pt called because she felt off this am, a bit nauseous and dizzy with a little cramping. She was having some intermittent contractions on the monitor but not a regular pattern and they did improve during her stay. Vaginal exam was unremarkable save some white discharge. Vag path showed +BV so she was started on metronidazole. Cx: closed/long/high. NST Reviewed and Verified by: Krystal Tamayo
[2024-01-16 17:33] VITALS: BP 123/70; PULSE 88; TEMP 36.7
== END 2024-01-16 13:25 ==
LOC: BCD 08:52 → OBS 09:00
PROVIDERS: PCP Nurse Practitioner Family; Visit Provider Obstetrics & Gynecology
DX: O26.893 Other specified pregnancy related conditions, third trimester (principal); R11.0 Nausea; N76.0 Acute vaginitis; Z3A.33 33 weeks gestation of pregnancy
CPT/HCPCS: 59025; 87081; 87086; 87480; 87510; 87660

== ENCOUNTER 2024-01-20 05:33 | Outpatient (CLI) | payer MEDICAID, SELFPAY ==
[2024-01-20 09:07] VITALS: BP 124/72; PULSE 94; TEMP 36.8
[2024-01-20 09:10] VITALS: BP 124/72; PULSE 94
[2024-01-20 09:59] VITALS: BP 124/72; PULSE 94; TEMP 36.8
--- NOTE | 2024-01-20 09:59 | W.OBNST ---
Date of service: 01/20/24 Time of Service: 09:59 NST Evaluation Reason for NST Reasons for Nonstress Test: GDM-INSULIN Gestational Age Gestational Age in Weeks and Days: 34 Weeks and 1Days Test and Monitor Explained Test/Monitor Explained: Test Explained and Monitor Explained Vital Signs Blood Pressure: 124/72 Pulse: 94 Temperature: 98.2 F NST Information Date on Monitor: 01/20/24 Time on Monitor: 09:07 Date off Monitor: 01/20/24 Time off Monitor: 09:33 Total Time on Monitor: 26 NST Interventions: PO Hydration NST Evaluation Patient States Movement: Present FHR Baseline: 140 Variability: Moderate 6-25 bpm Accelerations: 15x15 Decelerations: None NST Results: Reactive Note Ultrasound Done: N/A. NST Note Note: Category 1, reactive NST. Obstetric visit completed. NST Reviewed and Verified by: Celena Soto
== END 2024-01-20 09:36 ==
LOC: BCD 05:34 → OBS 09:01
PROVIDERS: PCP Nurse Practitioner Family; Visit Provider Obstetrics & Gynecology
DX: O24.414 Gestational diabetes mellitus in pregnancy, insulin controlled (principal); Z3A.34 34 weeks gestation of pregnancy
CPT/HCPCS: 59025

== ENCOUNTER 2024-01-24 07:11 | Outpatient (CLI) | payer MEDICAID, SELFPAY ==
[2024-01-24 09:02] VITALS: BP 121/60; PULSE 93; TEMP 36.9
[2024-01-24 09:05] VITALS: BP 121/60; PULSE 93
== END 2024-01-24 09:23 | disposition other institution (70) ==
LOC: BCD 07:14 → OBS 08:55
PROVIDERS: PCP Nurse Practitioner Family; Visit Provider Obstetrics & Gynecology
DX: O24.414 Gestational diabetes mellitus in pregnancy, insulin controlled (principal); Z3A.39 39 weeks gestation of pregnancy
CPT/HCPCS: 59025

== ENCOUNTER 2024-01-27 07:20 | Outpatient (CLI) | payer MEDICAID, SELFPAY ==
[2024-01-27 08:57] VITALS: BP 122/67; PULSE 94; TEMP 37.3
[2024-01-27 08:59] VITALS: BP 122/67; PULSE 94
--- NOTE | 2024-01-28 11:04 | PDOC.NST_ITS ---
Date of service: 01/28/24 Time of Service: 11:05 NST Evaluation Reason for NST Reasons for Nonstress Test: GDM-INSULIN Gestational Age Gestational Age in Weeks and Days: 35 Weeks and 1Days Test and Monitor Explained Test/Monitor Explained: Test Explained and Monitor Explained Vital Signs Blood Pressure: 122/67 Pulse: 94 Temperature: 99.1 F NST Information Date on Monitor: 01/27/24 Time on Monitor: 08:56 Date off Monitor: 01/27/24 Time off Monitor: 09:18 Total Time on Monitor: 22 NST Interventions: PO Hydration Contraction Frequency: irreg Comments: not noticed by pt. NST Evaluation Patient States Movement: Present FHR Baseline: 150 Variability: Moderate 6-25 bpm Accelerations: 15x15 Decelerations: None NST Results: Reactive Note Ultrasound Done: N/A. NST Note Note: reactive. pt will now be seen in [facility] for scheduled visit. NST Reviewed and Verified by: Caty Banerjee
[2024-01-28 11:06] VITALS: BP 122/67; PULSE 94; TEMP 37.3
== END 2024-01-27 09:25 ==
LOC: BCD 07:25 → OBS 08:53
PROVIDERS: PCP Nurse Practitioner Family; Visit Provider Obstetrics & Gynecology Gynecology
DX: O24.414 Gestational diabetes mellitus in pregnancy, insulin controlled (principal); Z3A.35 35 weeks gestation of pregnancy
CPT/HCPCS: 59025

== ENCOUNTER 2024-01-29 14:22 | Outpatient (CLI) | payer MEDICAID, SELFPAY ==
[2024-01-29 14:43] VITALS: BP 117/70; PULSE 100; TEMP 36.8
--- NOTE | 2024-01-29 18:30 | W.OBNST ---
Date of service: 01/29/24 Time of Service: 18:30 NST Evaluation Reason for NST Reasons for Nonstress Test: OTHER, SEE COMMENT Reason for NST Other: Increased contractions Gestational Age Gestational Age in Weeks and Days: 35 Weeks and 3Days Test and Monitor Explained Test/Monitor Explained: Test Explained and Monitor Explained Vital Signs Blood Pressure: 117/70 Pulse: 100 Temperature: 98.2 F Urine Results Urine Protein: Negative Urine Ketones: Negative Urine Glucose: Negative Urine Blood: Negative NST Information Date on Monitor: 01/29/24 Time on Monitor: 14:42 Date off Monitor: 01/29/24 Time off Monitor: 15:09 Total Time on Monitor: 27 NST Interventions: PO Hydration NST Evaluation Patient States Movement: Present FHR Baseline: 150 Variability: Moderate 6-25 bpm Accelerations: 15x15 Decelerations: None NST Results: Reactive Note Ultrasound Done: N/A. NST Note Note: Pt called with concern that marcia sullivan contractions were contributing to increased movement. Pt had insulin requiring GDM and is concerned that the fetus may not tolerate labor contractions. With the increased activity and marcia sullivan contractions pt wanted reassurance that the fetus was OK. I recommended NST which was reactive when she was eval on BC. Pt will f/u for routine NST on 01/31/24. NST Reviewed and Verified by: Caty Banerjee
[2024-01-29 18:33] VITALS: BP 117/70; PULSE 100; TEMP 36.8
== END 2024-01-29 15:17 ==
LOC: BCD 14:24 → OBS 14:33
PROVIDERS: PCP Nurse Practitioner Family; Visit Provider Obstetrics & Gynecology Gynecology
DX: O24.414 Gestational diabetes mellitus in pregnancy, insulin controlled (principal); O26.893 Other specified pregnancy related conditions, third trimester; Z3A.35 35 weeks gestation of pregnancy
CPT/HCPCS: 59025

== ENCOUNTER 2024-01-31 07:19 | Outpatient (CLI) | payer MEDICAID, SELFPAY ==
[2024-01-31 09:03] VITALS: BP 132/98; PULSE 90
[2024-01-31 09:27] VITALS: BP 132/98; PULSE 90
--- NOTE | 2024-01-31 09:27 | W.OBNST ---
Date of service: 01/31/24 Time of Service: 09:27 NST Evaluation Reason for NST Reasons for Nonstress Test: GDM-INSULIN Gestational Age Gestational Age in Weeks and Days: 35 Weeks and 5Days Test and Monitor Explained Test/Monitor Explained: Test Explained, Monitor Explained and Patient Verbalized Understanding Vital Signs Blood Pressure: 132/98 Pulse: 90 NST Information Date on Monitor: 01/31/24 Time on Monitor: 08:50 Date off Monitor: 01/31/24 Time off Monitor: 09:17 Total Time on Monitor: 27 NST Interventions: None NST Evaluation Patient States Movement: Present FHR Baseline: 135 Variability: Moderate 6-25 bpm Accelerations: 15x15 Decelerations: None NST Results: Reactive Note Ultrasound Done: N/A. NST Note Note: Category 1, reactive nonstress test. Adequate glycemic control. Follow-up for OB visit and NST as scheduled on 02/03/24 NST Reviewed and Verified by: Celena Soto
== END 2024-01-31 09:20 | disposition home health service (06) ==
LOC: BCD 07:21 → OBS 08:56
PROVIDERS: PCP Nurse Practitioner Family; Visit Provider Obstetrics & Gynecology
DX: O24.414 Gestational diabetes mellitus in pregnancy, insulin controlled (principal); Z3A.35 35 weeks gestation of pregnancy
CPT/HCPCS: 59025

== ENCOUNTER 2024-02-01 01:58 | Outpatient (CLI) | payer MEDICAID, SELFPAY ==
--- NOTE | 2024-02-01 06:45 | DI.US_ITS ---
Exam(s) US OB SCHUYLER WEIGHT EXAM: US OB SCHUYLER WEIGHT CLINICAL HISTORY: growth, schuyler, eval perinephric fluid L kidney,GEST DIABETES,[id number]. TECHNIQUE: Transabdominal obstetrical ultrasound performed. COMPARISON: US US OB SCHUYLER WEIGHT from 01/05/2024 FINDINGS: Number of fetuses: 1 position: CEPHALIC Placental location: There is a grade 2 posterior placenta. No evidence of previa. BIOMETRIC DATA: BPD: 9.5cm, 38weeks 5days HC: 33.96cm, 39weeks AC: 32.58cm, 36weeks 3days FL: 7.04cm, 36weeks 1day EFW: 3,067.29g, 6lb 12.67oz, 79% Composite Age: 37weeks 4days NAYA: 02/18/2024 Heart Rate: 148bpm Amniotic fluid index: 15.87cm. Visually, amount of fluid is within normal limits. No perinephric fluid is seen on this examination. IMPRESSION: 1. Single live intrauterine gestation as above. 2. Estimated weight is 3067gms. This is the 79th percentile. 3. Amniotic fluid index is 15.9 cm. Visually within normal limits. DATA REPOSITORY:
== END 2024-02-01 02:18 ==
LOC: DI 01:58
PROVIDERS: PCP Nurse Practitioner Family; Visit Provider Obstetrics & Gynecology Gynecology
DX: O35.EXX0 Maternal care for other (suspected) fetal abnormality and damage, fetal genitourinary anomalies, not applicable or unspecified; Z3A.38 38 weeks gestation of pregnancy
CPT/HCPCS: 76816

== ENCOUNTER 2024-02-03 07:26 | Outpatient (CLI) | payer MEDICAID, SELFPAY ==
[2024-02-03 08:55] VITALS: BP 123/73; PULSE 90; TEMP 36.7
[2024-02-03 09:14] VITALS: BP 123/73; PULSE 90
--- NOTE | 2024-02-07 08:08 | W.OBNST ---
Date of service: 02/03/24 Time of Service: 09:00 NST Evaluation Reason for NST Reasons for Nonstress Test: GDM-DIET CONTROLLED and GDM-INSULIN Gestational Age Gestational Age in Weeks and Days: 36 Weeks and 1Days Test and Monitor Explained Test/Monitor Explained: Test Explained, Monitor Explained and Patient Verbalized Understanding Vital Signs Blood Pressure: 123/73 Pulse: 90 Temperature: 98.1 F NST Information Date on Monitor: 02/03/24 Time on Monitor: 08:46 Date off Monitor: 02/03/24 Time off Monitor: 09:35 Total Time on Monitor: 49 NST Interventions: PO Hydration NST Evaluation Patient States Movement: Present FHR Baseline: 145 Variability: Moderate 6-25 bpm Accelerations: 15x15 Decelerations: None NST Results: Reactive Note Ultrasound Done: N/A. NST Note Note: GDM - see records NST Reviewed and Verified by: Krystal Tamayo
[2024-02-07 08:09] VITALS: BP 123/73; PULSE 90; TEMP 36.7
== END 2024-02-03 09:43 | disposition other institution (70) ==
LOC: BCD 07:28 → OBS 08:53
PROVIDERS: PCP Nurse Practitioner Family; Visit Provider Obstetrics & Gynecology
DX: O24.414 Gestational diabetes mellitus in pregnancy, insulin controlled (principal); Z3A.36 36 weeks gestation of pregnancy
CPT/HCPCS: 59025

== ENCOUNTER 2024-02-07 07:50 | Outpatient (CLI) | payer MEDICAID, SELFPAY ==
[2024-02-07 08:55] VITALS: BP 123/74; PULSE 96; TEMP 36.8
[2024-02-07 09:18] VITALS: BP 123/74; PULSE 96
== END 2024-02-07 09:25 | disposition other institution (70) ==
LOC: BCD 07:50 → OBS 08:53
PROVIDERS: PCP Nurse Practitioner Family; Visit Provider Obstetrics & Gynecology
DX: O24.414 Gestational diabetes mellitus in pregnancy, insulin controlled (principal); Z3A.36 36 weeks gestation of pregnancy
CPT/HCPCS: 59025

== ENCOUNTER 2024-02-10 07:15 | Outpatient (CLI) | payer MEDICAID, SELFPAY ==
[2024-02-10 08:56] VITALS: BP 134/71; PULSE 98; TEMP 36.7
[2024-02-10 09:17] VITALS: BP 134/71; PULSE 98
--- NOTE | 2024-03-19 08:09 | W.OBNST ---
Date of service: 02/10/24 Time of Service: 08:09 NST Evaluation Reason for NST Reasons for Nonstress Test: GDM-DIET CONTROLLED and GDM-INSULIN Gestational Age Gestational Age in Weeks and Days: 39 Weeks and 1Days Test and Monitor Explained Test/Monitor Explained: Test Explained, Monitor Explained and Patient Verbalized Understanding Vital Signs Blood Pressure: 134/71 Pulse: 98 Temperature: 98.1 F NST Information Date on Monitor: 02/10/24 Time on Monitor: 08:55 Date off Monitor: 02/10/24 Time off Monitor: 09:28 Total Time on Monitor: 33 NST Interventions: PO Hydration NST Evaluation Patient States Movement: Present FHR Baseline: 160 Variability: Moderate 6-25 bpm Accelerations: 15x15 Decelerations: None NST Results: Reactive Note Ultrasound Done: N/A. NST Note Note: Category 1, reactive nonstress test NST Reviewed and Verified by: Celena Soto
[2024-03-19 08:10] VITALS: BP 134/71; PULSE 98; TEMP 36.7
== END 2024-02-10 09:29 | disposition other institution (70) ==
LOC: BCD 07:16 → OBS 08:55
PROVIDERS: PCP Nurse Practitioner Family; Visit Provider Obstetrics & Gynecology
DX: O24.414 Gestational diabetes mellitus in pregnancy, insulin controlled (principal); Z3A.37 37 weeks gestation of pregnancy
CPT/HCPCS: 59025

== ENCOUNTER 2024-02-14 07:39 | Outpatient (CLI) | payer MEDICAID, SELFPAY ==
[2024-02-14 08:53] VITALS: BP 125/65; PULSE 90; TEMP 36.9
[2024-02-14 09:04] VITALS: BP 125/65; PULSE 90
[2024-02-15 08:12] VITALS: BP 125/65; PULSE 90; TEMP 36.9
--- NOTE | 2024-02-15 08:12 | W.OBNST ---
Date of service: 02/15/24 Time of Service: 08:12 NST Evaluation Reason for NST Reasons for Nonstress Test: GDM-DIET CONTROLLED and GDM-INSULIN Gestational Age Gestational Age in Weeks and Days: 37 Weeks and 5Days Test and Monitor Explained Test/Monitor Explained: Test Explained, Monitor Explained and Patient Verbalized Understanding Vital Signs Blood Pressure: 125/65 Pulse: 90 Temperature: 98.4 F NST Information Date on Monitor: 02/14/24 Time on Monitor: 08:53 Date off Monitor: 02/14/24 NST Interventions: PO Hydration NST Evaluation Patient States Movement: Present FHR Baseline: 155 Variability: Moderate 6-25 bpm Accelerations: 15x15 Decelerations: None NST Results: Reactive Note Ultrasound Done: N/A. NST Note Note: Pt reports nl fasting CBGs, 1 elevation of supper PP CBGs to 160 after dietary indiscretion. Pt's Novolin dose has not changed since it was originally prescribed. 02/01/24 u/sEFW 79%tile. SCHUYLER 15. Pt will contine twice weekly NSTs until planned IOL. NST Reviewed and Verified by: Caty Banerjee
== END 2024-02-14 09:53 | disposition other institution (70) ==
LOC: BCD 07:41 → OBS 08:46
PROVIDERS: PCP Nurse Practitioner Family; Visit Provider Obstetrics & Gynecology Gynecology
DX: O24.414 Gestational diabetes mellitus in pregnancy, insulin controlled (principal); Z3A.37 37 weeks gestation of pregnancy
CPT/HCPCS: 59025

== ENCOUNTER 2024-02-17 08:28 | Outpatient (CLI) | payer MEDICAID, SELFPAY ==
[2024-02-17 08:50] VITALS: BP 129/63; PULSE 98; TEMP 36.5
[2024-02-17 09:17] VITALS: BP 129/63; PULSE 98
--- NOTE | 2024-03-07 10:42 | W.OBNST ---
Date of service: 03/07/24 Time of Service: 10:42 NST Evaluation Reason for NST Reasons for Nonstress Test: GDM-DIET CONTROLLED and GDM-INSULIN Gestational Age Gestational Age in Weeks and Days: 39 Weeks and 1Days Test and Monitor Explained Test/Monitor Explained: Test Explained and Monitor Explained Vital Signs Blood Pressure: 129/63 Pulse: 98 Temperature: 97.7 F NST Information Date on Monitor: 02/17/24 Time on Monitor: 08:50 Date off Monitor: 02/17/24 Time off Monitor: 09:25 Total Time on Monitor: 35 NST Interventions: PO Hydration NST Evaluation Patient States Movement: Present FHR Baseline: 150 Variability: Moderate 6-25 bpm Accelerations: 15x15 Decelerations: None NST Results: Reactive Note Ultrasound Done: N/A. NST Note Note: Pt reports satisfactory glycemic control with nl fasting CBGs and normalization of post supper CBGs. NST Reviewed and Verified by: Caty Banerjee
[2024-03-07 10:43] VITALS: BP 129/63; PULSE 98; TEMP 36.5
== END 2024-02-17 09:30 | disposition other institution (70) ==
LOC: BCD 08:37 → OBS 09:07
PROVIDERS: PCP Nurse Practitioner Family; Visit Provider Obstetrics & Gynecology Gynecology
DX: O24.414 Gestational diabetes mellitus in pregnancy, insulin controlled (principal); Z3A.39 39 weeks gestation of pregnancy
CPT/HCPCS: 59025

== ENCOUNTER 2024-02-21 09:07 | Outpatient (CLI) | payer MEDICAID, SELFPAY ==
[2024-02-21 09:25] VITALS: BP 134/77; PULSE 98; TEMP 36.5
--- NOTE | 2024-03-07 10:45 | W.OBNST ---
Date of service: 03/07/24 Time of Service: 10:45 NST Evaluation Reason for NST Reasons for Nonstress Test: GDM-INSULIN Gestational Age Gestational Age in Weeks and Days: 39 Weeks and 1Days Test and Monitor Explained Test/Monitor Explained: Test Explained, Monitor Explained and Patient Verbalized Understanding Vital Signs Blood Pressure: 134/77 Pulse: 98 Temperature: 97.7 F Urine Results Urine Protein: Negative Urine Ketones: Negative Urine Glucose: Negative Urine Blood: Negative NST Information Date on Monitor: 02/21/24 Time on Monitor: 09:02 Date off Monitor: 02/21/24 Time off Monitor: 09:44 Total Time on Monitor: 42 NST Interventions: None Contraction Frequency: Occasional NST Evaluation Patient States Movement: Present FHR Baseline: 135 Variability: Moderate 6-25 bpm Accelerations: 15x15 Decelerations: None NST Results: Reactive Note Ultrasound Done: N/A. NST Note Note: Reactive NST. Pt is scheduled for IOL at 39w EGA. Nl CBGs. NST Reviewed and Verified by: Caty Banerjee
[2024-03-07 10:47] VITALS: BP 134/77; PULSE 98; TEMP 36.5
== END 2024-02-21 09:55 ==
LOC: BCD 09:18 → OBS 09:18
PROVIDERS: PCP Nurse Practitioner Family; Visit Provider Obstetrics & Gynecology Gynecology
DX: O24.414 Gestational diabetes mellitus in pregnancy, insulin controlled (principal); Z3A.39 39 weeks gestation of pregnancy
CPT/HCPCS: 59025

== ENCOUNTER 2024-02-24 06:43 | Outpatient (CLI) | payer MEDICAID, SELFPAY ==
[2024-02-24 08:54] VITALS: TEMP 37.3
== END 2024-02-24 10:05 ==
LOC: BCD 06:45 → OBS 08:53
PROVIDERS: PCP Nurse Practitioner Family; Visit Provider Obstetrics & Gynecology

== ENCOUNTER 2024-02-24 08:26 | Inpatient (IN) | payer MEDICAID, SELFPAY ==
[2024-02-24] VITALS (11 sets, daily range): BP systolic 111–132; BP diastolic 57–80; PULSE 67–95; RESP 16–17; TEMP 36.5–36.7; O2SAT 98–99
--- NOTE | 2024-02-24 08:28 | HPE_ITS ---
Date of service: 02/24/24 Time of Service: 08:28 Assessment and Plan Assessment and plan (1) : Status: Acute Assessment and plan: 4, para 3 at 39 weeks and 1 day. Pregestational diabetes. Stable on insulin. Labor induction today due to term, decreasing insulin requirements. Riss benefits and alternatives discussed at length. (2) Modified White class B pregestational diabetes mellitus: Status: Acute Assessment and plan: Patient takes 25 units of NPH at bedtime. She did take her evening dose. Will modify insulin as needed. She will have Accu-Cheks every 4 hours. Anticipate vaginal . If patient does require delivery, she has requested tubal sterilization. All questions answered. (3) Rh negative status during : Status: Acute OB-HPI Labor/Delivery History of Present Illness Reason for Visit: Labor induction Chief Complaint: Scheduled Induction of Labor Indication for Induction: Chronic Maternal Diabetes. NAYA Calculator Estimated Delivery Date Method Current WG Current Estimate 03/01/24 Ultrasound #1 39w 1d Other Estimates 02/24/24 LMP (Certain) 40w 0d Comments: Patient admitted to the presented today for induction of labor at 39 weeks and 1 day. Patient has known early diabetes which she has been controlling with insulin. Baby has been at the 97th percentile with generous amniotic fluid. Respondents alternatives of labor induction were discussed with the patient in full informed consent has been obtained. She has had, more recently, decreasing insulin requirements which would possibly indicate a lack of placental reserve. All questions were answered today. History of Present Expected Delivery Route/Plan - FOB/ - [place] (3rd baby together) BG Specific Issues/Plan 1. Pregestational DM (+3hr GTT at 13. wks) - 09/09/23. NPH @ HS 01/04/23. 25units at bedtime. - Start low dose ASA 162mg 12 wks - echo@25w. Ordered 10/12/23- Seen [place] [facility] [place] U/S 11/16/2023 - NSTs begining 34w. - Delivery after 39w. -growth U/S at 32w: 01/05/24. EFW 5lb6oz (>97%tile, SCHUYLER 19). 2. L sided perinephric fluid noted. F/u at 36w u/s. 3. Hx asthma, has inhaler that uses PRN Rx'ed by PCP 4. Anxiety - citalopram escribed by PCP. 5. Desires sterilization via salpingectomy if she were to need a CS 6. CF previously negative, CfDNA low risk x5 female_ Narrative: Patient is a 4 para 3 at 39 weeks and 1 day with diabetes requiring insulin. She is scheduled for labor induction at this point. She does have an infant that is large for gestational age. Her largest baby was 9 pounds 12 ounces. Her pelvis appears adequate. Today, her cervix is 2, 50%, soft, mid position. We would anticipate beginning Pitocin augmentation when appropriate. She will continue to have Accu-Cheks every 4 hours. Informed Consent Informed Consent: Induction of Labor Review of Systems Narrative: Alert, oriented, no acute distress. Constitutional Constitutional: Reports system reviewed and no additional complaints, except as documented Eyes Eyes: Reports system reviewed and no additional complaints, except as documented ENT Ears, Nose, Mouth, and Throat: Reports system reviewed and no additional complaints, except as documented Cardiovascular Cardiovascular: Reports system reviewed and no additional complaints, except as documented Respiratory Respiratory: Reports system reviewed and no additional complaints, except as documented Gastrointestinal Gastrointestinal: Reports system reviewed and no additional complaints, except as documented Genitourinary Genitourinary: Reports system reviewed and no additional complaints, except as documented Neurologic Neurologic: Reports system reviewed and no additional complaints, except as documented Psychiatric Psychiatric: Reports system reviewed and no additional complaints, except as documented PFSH All Active Problems (Updated 01/11/24 @ 11:05 by Caty Banerjee MD) Kidney abnormality of fetus on ultrasound (Acute) 01/05/24 L kidney with tiny amount of perinephric fluid. Rh negative status during (Acute) Modified White class B pregestational diabetes mellitus (Acute) 6. (Acute) Anxiety (Chronic) Asthma (Chronic) Medical History Modified White class B pregestational diabetes mellitus Constipation Surgical History S/P appendectomy (2017) Family History Mother Essential hypertension Paternal Grandmother , age 54 Breast cancer Asthma Father No problems noted. Sister No problems noted. Brother No problems noted. Son No problems noted. Son No problems noted. Maternal Grandfather No problems noted. Paternal Grandfather , age 76 Stroke Maternal Grandmother Diabetes Depression Son No problems noted. Social History Smoking/Tobacco Use Status: Never Second Hand Exposure: Yes Smoking risk assessment performed?: Yes Alcohol Intake: current Alcohol Intake frequency: holidays/special occasions only Alcohol type: beer and hard liquor Drug use: Never Substance use type: does not use Adopted: No Caregiver/Support person: No Foster care: No Household members: spouse and children Housing: house Number of Children: 3 Communication Needs: None Education Level: college Details: some Do you need help understanding health information?: Never current occupation: [employer] Pets and animals: Yes Pets and animals: cat(s) Sexually active: Yes Do you think of yourself as: straight/heterosexual Current gender identity: female What is your relationship status?: How often do you talk on the phone with friends or family?: three or more times per week How often do you get together with friends or relatives?: twice per week How often do you attend christian or oriental orthodox services?: 1-3 times per year Do you belong to any clubs or organized social groups?: no Panel score (0-1 are the most socially isolated patients): 2 What type of physical activity do you participate in: walking Duration: < 15 minutes/day Frequency: daily Bonnie/Sabianism: Non sikhism Special bonnie needs: No Seatbelt use: always Helmet use: Yes Helmet use: always Drive intox or ride w/intox transport truck driver: No Working smoke detector in home: Yes Carbon monox detector in home: Yes Firearms in home: Yes Firearms unloaded and locked: Yes Do you feel safe at home: Yes Do you feel safe in your relationship?: Yes Victim of physical abuse: No Victim of emotional abuse: Yes Victim of sexual abuse: No Female Reproductive History Menstrual control method: pills History History 4 Para 3 Hx # Term Pregnancies 3 Multiple births 0 Hx # Pregnancies 0 Ectopic pregnancies 0 AB induced 0 Hx Number of Living Children 3 AB spontaneous 0 Past Pregnancies Del. Date GA/Weeks # Preg Succ Route Wgt Sex Labor Lgth Anesth esia Location Prov Complic 02/14/13 39 No vaginal 7 lb 15 oz Male 12 hrs [facility] - [place] 09/14/16 40 No vaginal 9 lb 12 oz Male 4 hrs [facility] - [place] 03/04/21 39 No vaginal 8 lb 11 oz Male 4hr [facility] - [place] Delivery Date: 02/14/13 Last Updated by: Mayuri Bass CNM nml labor and , epidural, stitches, no complications [place] Delivery Date: 09/14/16 Last Updated by: Mayuri Bass CNM fast labor, used nitrous only, nml , only 4 stitches, no complications. [place] Delivery Date: 03/04/21 Last Updated by: Krystal Tamayo M.D. Induction for DM - [place] Meds Allergies and Home Medications Allergies Allergy/AdvReac Type Severity Reaction Status Date / Time No Known Allergies Allergy Verified 01/27/24 09:48 Home Medications ?Medication ?Instructions ?Recorded ?Confirmed ?Type meclizine 25 mg tablet 25 mg PO DAILY PRN dizziness #10 01/01/22 02/19/24 Rx tabs albuterol sulfate 1.25 mg/3 mL 1.25 mg (3 mL) inhalation QID PRN 03/25/22 02/19/24 Rx solution for nebulization shortness of breath or wheezing #75 mL albuterol sulfate 90 mcg/actuation 2 puff inhalation Q6H PRN 09/07/22 02/19/24 Rx aerosol inhaler (Ventolin HFA) shortness of breath or wheezing #8.5 grams B-complex with vitamin C 1 cap PO DAILY 04/18/23 02/19/24 History lactobacillus combination no.9 4 4,000 mmu cells PO DAILY 04/18/23 02/19/24 History billion cell capsule (Adult 50 Plus Probiotic) magnesium oxide 420 mg tablet 420 mg PO DAILY 04/18/23 02/19/24 History escitalopram oxalate 5 mg tablet 5 mg PO DAILY #90 tabs 09/19/23 02/19/24 Rx blood-glucose sensor (Apalyacom G7 #1 ea 10/05/23 02/19/24 Rx Sensor device) docusate sodium 100 mg capsule 100 mg PO DAILY PRN 12/02/23 02/19/24 History pen needle, diabetic 31 gauge x #100 ea 12/16/23 02/19/24 Rx /16 lancets 33 gauge (OneTouch Delheriberto #100 ea 12/29/23 02/19/24 Rx Plus Lancet) insulin aspart U-100 100 unit/mL 2 unit (0.02 mL) subcut QACDINNER 01/15/24 02/19/24 Rx (3 mL) subcutaneous pen (Novolog #15 mL FlexPen U-100 Insulin aspart) metronidazole 500 mg tablet 500 mg PO BID #14 tabs 01/16/24 02/19/24 Rx blood sugar diagnostic (OneTouch #100 ea 01/24/24 02/19/24 Rx Ultra Test strips) insulin NPH isoph U-100 human 100 20 unit (0.2 mL) subcut QPM #6 mL 02/22/24 Rx unit/mL (3 mL) subcutaneous pen (Novolin N FlexPen) Exam Detailed Labor and Delivery Exam Parks Score: Cervical Points Exam 0 1 2 3 Dilation Closed 1-2cm 3-4 cm 5-6cm Effacement 0-30% 40-50% 60-70% 80% Consistency Firm Medium Soft Station -3 -2 -1,0 +1,+2 Position Posterior Mid Anterior Risk Assessment Risk for Shoulder Dystocia Historical/Initial OB: POSITIVE FOR: Pre- BMI>30; NEGATIVE FOR: Pelvic Abnormality, Previous Shoulder Dystocia or Previous Macrosomia Counseling: proven to 912 Risk for Pre-Eclampsia Date Initiated/Initials: started low dose daily at 12 wks Yes, if one or more: POSTIVE FOR: Pre-gestational DM; NEGATIVE FOR: Hx Pre-E/Gest HTN, Chronic HTN, Multiple Gestation, Renal Disease, Systemic Lupus or APA Syndrome Yes, if 2 or more: POSITIVE FOR: BMI>30; NEGATIVE FOR: Nulliparity, Age>= 35 yrs, >10yr btwn pregnancies, ethinicty, Mother/Sister w/ Pre-E or Previous IUGR Risk for Post- Hemorrhage Initial: NEGATIVE FOR: Multiple Gestation, Previous PPH, Known Clotting Deficiency, Grand Multiparity or Anticoagulation Interventions: IV, awareness Date/Initials: DALE 02/12/21 Risks Reviewed Risks Reviewed Upon Admission: Yes
[2024-02-24 09:06] LABS: HCT 37.7 % (36.0-46.0); HGB 12.2 g/dL (11.2-15.7); MCH 27.4 pg (27.0-33.0); MCHC 32.4 % (32.0-36.0); MCV 85 fL (80-95); MPV 9.6 fL (8.0-11.0); Platelet Count 206 10^3/uL (130-400); RBC 4.46 10^6/uL (3.93-5.22); RDW 15.6 % (11.7-14.6); RDW-SD 47.1 fL; WBC 6.77 10^3/uL (4.4-10.8)
[2024-02-24] MEDS: Normal Saline Flush 10 ML SYR IVP (11:49)
[2024-02-24] MEDS: Lactated Ringers 1,000 ML 125 ML IV (12:17)
[2024-02-24] MEDS: Oxytocin/Normal Saline 30 UNIT/500 ML BAG 1 UNITS IV (12:17)
--- NOTE | 2024-02-24 16:27 | W.PM.OBNL1 ---
Date of service: 02/24/24 Time of Service: 16:27 Informed Consent Informed Consent: Induction of Labor Pelvic Exam Dilation: 3 Effacement (%): 70 station: -2 Cervix Position: anterior Consistency: soft Assessment and Plan Assessment and plan (1) : Status: Acute Assessment and plan: at 39 weeks and 1 day. Labor induction. Overall doing well. Continue Pitocin augmentation. Ambulate. Will recheck in approximately 1 hour. Anticipate artificial rupture. Anticipate vaginal . (2) Modified White class B pregestational diabetes mellitus: Status: Acute Objective Abnormal lab results 02/24/24 Range/Units 08:42 RDW 15.6 H (11.7-14.6) % Temp Pulse Resp BP Pulse Ox 97.7 F 88 17 123/61 99 02/24/24 10:31 02/24/24 14:32 02/24/24 10:31 02/24/24 14:32 02/24/24 10:31 Laboratory Results WBC 6.77 10^3/uL (4.4-10.8) 02/24/24 08:42 RBC 4.46 10^6/uL (3.93-5.22) 02/24/24 08:42 Hgb 12.2 g/dL (11.2-15.7) 02/24/24 08:42 Hct 37.7 % (36.0-46.0) 02/24/24 08:42 MCV 85 fL (80-95) 02/24/24 08:42 MCH 27.4 pg (27.0-33.0) 02/24/24 08:42 MCHC 32.4 % (32.0-36.0) 02/24/24 08:42 RDW 15.6 % (11.7-14.6) H 02/24/24 08:42 Plt Count 206 10^3/uL (130-400) 02/24/24 08:42 MPV 9.6 fL (8.0-11.0) 02/24/24 08:42 ABO/Rh O Positive 02/24/24 08:42 Antibody Screen NEGATIVE 02/24/24 08:42 Subjective Interval history since last seen: Patient seen and examined. Overall doing well. Amado regularly approximately every 2 minutes with a Pitocin at 3. Cervical exam is 3 cm, 70%, -2. The baby is somewhat ballotable with examination. Patient will ambulate and we will recheck in approximately 1 hour with anticipated artificial rupture of membranes. All questions answered. Category 1 tracing. Results Hemoglobin/Hematocrit: Hgb 12.2 g/dL (11.2-15.7) 02/24/24 08:42 Hct 37.7 % (36.0-46.0) 02/24/24 08:42 Abnormal Lab Findings: Abnormal Labs 02/24/24 08:42 RDW 15.6 H
--- NOTE | 2024-02-24 18:26 | W.PM.OBNL1 ---
Date of service: 02/24/24 Time of Service: 18:26 Informed Consent Informed Consent: Induction of Labor Pelvic Exam Dilation: 3 Effacement (%): 70 station: -2 Cervix Position: posterior Consistency: soft Fetus A Heart Rate Baseline: 150 Presentation: Cephalic Variability: Moderate (6-25 BPM) Categories: Category I FHR Rhythm: Regular Amniotic Membrane Status: Ruptured Rupture Method: Artifical Amniotic Fluid: Meconium (Light) Amount: Copious Date of Membrane Rupture: 02/24/24 Time of Membrane Rupture: 18:28 Assessment and Plan Assessment and plan (1) : Status: Acute Assessment and plan: 39 and 1 sevenths weeks. Labor induction. Pitocin at 8 milliunits. Artificial rupture membranes for lightly meconium stained fluid. Anticipate vaginal . Nitrous for pain control. (2) Modified White class B pregestational diabetes mellitus: Status: Acute (3) Rh negative status during : Status: Acute (4) Encounter for induction of labor: Status: Inactive Objective Abnormal lab results 02/24/24 Range/Units 08:42 RDW 15.6 H (11.7-14.6) % Temp Pulse Resp BP Pulse Ox 97.7 F 88 17 123/61 99 02/24/24 10:31 02/24/24 14:32 02/24/24 10:31 02/24/24 14:32 02/24/24 10:31 Laboratory Results WBC 6.77 10^3/uL (4.4-10.8) 02/24/24 08:42 RBC 4.46 10^6/uL (3.93-5.22) 02/24/24 08:42 Hgb 12.2 g/dL (11.2-15.7) 02/24/24 08:42 Hct 37.7 % (36.0-46.0) 02/24/24 08:42 MCV 85 fL (80-95) 02/24/24 08:42 MCH 27.4 pg (27.0-33.0) 02/24/24 08:42 MCHC 32.4 % (32.0-36.0) 02/24/24 08:42 RDW 15.6 % (11.7-14.6) H 02/24/24 08:42 Plt Count 206 10^3/uL (130-400) 02/24/24 08:42 MPV 9.6 fL (8.0-11.0) 02/24/24 08:42 ABO/Rh O Positive 02/24/24 08:42 Antibody Screen NEGATIVE 02/24/24 08:42 Subjective Interval history since last seen: Patient seen, more uncomfortable with contractions. Now every 2 to 3 minutes. Pitocin is at 8. Discussed ongoing augmentation, patient desires artificial rupture of membranes. Plan discussed. Results Hemoglobin/Hematocrit: Hgb 12.2 g/dL (11.2-15.7) 02/24/24 08:42 Hct 37.7 % (36.0-46.0) 02/24/24 08:42 Abnormal Lab Findings: Abnormal Labs 02/24/24 08:42 RDW 15.6 H
--- NOTE | 2024-02-24 18:45 | W.PM.OBNL1 ---
Date of service: 02/24/24 Time of Service: 18:46 Informed Consent Informed Consent: Induction of Labor Objective Abnormal lab results 02/24/24 Range/Units 08:42 RDW 15.6 H (11.7-14.6) % Temp Pulse Resp BP Pulse Ox 97.7 F 88 17 123/61 99 02/24/24 10:31 02/24/24 14:32 02/24/24 10:31 02/24/24 14:32 02/24/24 10:31 Laboratory Results WBC 6.77 10^3/uL (4.4-10.8) 02/24/24 08:42 RBC 4.46 10^6/uL (3.93-5.22) 02/24/24 08:42 Hgb 12.2 g/dL (11.2-15.7) 02/24/24 08:42 Hct 37.7 % (36.0-46.0) 02/24/24 08:42 MCV 85 fL (80-95) 02/24/24 08:42 MCH 27.4 pg (27.0-33.0) 02/24/24 08:42 MCHC 32.4 % (32.0-36.0) 02/24/24 08:42 RDW 15.6 % (11.7-14.6) H 02/24/24 08:42 Plt Count 206 10^3/uL (130-400) 02/24/24 08:42 MPV 9.6 fL (8.0-11.0) 02/24/24 08:42 ABO/Rh O Positive 02/24/24 08:42 Antibody Screen NEGATIVE 02/24/24 08:42 Subjective Interval history since last seen: Patient seen and examined. Feeling more pressure to push. Uterine contractions every 2 minutes. Cervical exam performed, 5 cm, 100%, 0 station. Significant change in progress. Anticipate vaginal . All questions answered. Results Hemoglobin/Hematocrit: Hgb 12.2 g/dL (11.2-15.7) 02/24/24 08:42 Hct 37.7 % (36.0-46.0) 02/24/24 08:42 Abnormal Lab Findings: Abnormal Labs 02/24/24 08:42 RDW 15.6 H
--- NOTE | 2024-02-24 19:06 | W.OBDELIVERY ---
Date of service: 02/24/24 Time of Service: 19:06 OB Labor/ Delivery Information Baby A Delivery Delivery Method: Spontaneaous Presentation: Vertex Vertex Position: Right Occipital Anterior Cord Description-Baby A: 3 Vessels and Clamped/Cut (delayed clamping) Amniotic Fluid: Meconium Estimated Blood Loss: 50 Delivery Outcome: Liveborn Providers Doctor: Celena Soto Nurse: Ashley Jim Nurse: Debby Ch Other: Marine Kohler Labor/Delivery Information Number of Babies in Womb: 1 Steroids Given: None Reason Steroids Not Administered: N/A Group Beta Strep: Negative Antibiotics Administered: No Rubella Status: Immune Blood Type: O+ Varicella Immunity: Immune Shoulder Dystocia: No Stages of Labor Onset of Labor Date: 02/24/24 Complete Dilatation Date: 02/24/24 Complete Dilatation Time: 18:52 ROM Baby A: 02/24/24 ROM Baby A: 18:28 ROM Total Time- Baby A: [id number] Delivery Date-Baby A: 02/24/24 Infant Delivery Time-Baby A: 18:52 Labor Stage 2 Duration: 0 minutes Placenta Delivery Date-Baby A: 02/24/24 Placenta Delivery Time-Baby A: 19:00 Labor-Stage 3 Duration: 8 minutes Placenta Status: Delivered Baby A Infant Gender: Female Gestational Status: Term (39-41.6 wks) Gestational Age in Weeks/Days: 39 Weeks and 1 Days Score-1 Minute Interval(Baby A) Heart Rate-1 minute: 100 BPM or Greater Respiratory Effort- 1 minute: Spontaneous/Strong Cry Muscle Tone-1 minute: Active Movement Reflex Response-1 minute: Prompt Response Color-1 minute: Pallor or Cyanosis Total Score-1 minute: 8 Score-5 Minute Interval(Baby A) Heart Rate- 5 minute: 100 BPM or Greater Respiratory Effort-5 minute: Spontaneous/Strong Cry Muscle Tone-5 minute: Active Movement Reflex Response-5 minute: Prompt Response Color-5 minute: Bluish Hands or Feet Total Score- 5 minute: 9 Note: Patient had artificial rupture of membranes for the lightly meconium stained fluid. After approximately 1 hour she had increased urge to push. At that point, she is noted to be 5 cm. Pitocin was cut in half. She used nitrous for pain control. Approximately 10 minutes later, she had a strong urge to push and was completely dilated, vertex at the perineum. With little to no maternal effort, the vertex delivered over an intact perineum. There was no evidence of nuchal cord. Shoulders followed without difficulty. Baby was delivered to the mom's abdomen. A three-vessel cord was noted and clamped after approximately 1 minute of delayed cord clamping. Cord blood sample was obtained. The placenta delivered spontaneously and was noted to be intact. She did receive Pitocin post delivery of the baby for active management of the third stage. Both mom and baby are in stable condition after delivery. Uterus is firm, 2 cm below the umbilicus. Qualitative blood loss is 50 mL. No evidence of perineal, cervical, or vaginal lacerations. weight to follow
[2024-02-24] MEDS: Acetaminophen 325 MG TAB 650 MG PO (19:44)
[2024-02-24] MEDS: Ibuprofen 600 MG TAB PO (19:44)
[2024-02-25 00:55] VITALS: BP 116/70; PULSE 88; RESP 16; TEMP 36.5
[2024-02-25] MEDS: Ibuprofen 600 MG TAB PO ×3 (02:30→14:20)
[2024-02-25] MEDS: Acetaminophen 325 MG TAB 650 MG PO ×3 (02:31→14:20)
[2024-02-25 07:22] LABS: HGB 11.5 g/dL (11.2-15.7); MCH 27.6 pg (27.0-33.0); MCHC 31.9 % (32.0-36.0); MCV 87 fL (80-95); MPV 9.5 fL (8.0-11.0); Platelet Count 190 10^3/uL (130-400); RBC 4.16 10^6/uL (3.93-5.22); RDW 15.9 % (11.7-14.6); RDW-SD 50.1 fL; WBC 8.65 10^3/uL (4.4-10.8)
[2024-02-25 08:00] VITALS: BP 119/77; PULSE 84; RESP 16; TEMP 36.6; O2SAT 96
--- NOTE | 2024-02-25 10:24 | OBPPV_ITS ---
Date of service: 02/25/24 Time of Service: 10:24 Assessment and Plan Assessment and plan (1) (normal spontaneous vaginal delivery): Status: Acute Assessment and plan: day #1 status postnormal spontaneous vaginal delivery after labor induction at 39 weeks and 1 day due to insulin requiring gestational diabetes. All questions were answered today. She will discharge home and monitor her blood glucose levels in the fasting timeframe. She may need to reinstitute insulin depending on her sugar control. (2) Modified White class B pregestational diabetes mellitus: Status: Acute (3) Rh negative status during : Status: Acute Subjective Subjective Interval history: Patient seen this morning doing well. No issues or concerns. Breast-feeding without difficulty. Lochia is physiologic. Fasting blood glucose was 89 this morning. At this point, we will discontinue the use of her insulin. She will monitor her blood sugars in the fasting time. At home. [place] baby status: Doing well and Nursing well Exam Physical Exam Vital signs: Temp Pulse Resp BP Pulse Ox 98 F 84 16 119/77 96 02/25/24 08:00 02/25/24 08:00 02/25/24 08:00 02/25/24 08:00 02/25/24 08:00 Vital Signs Reviewed: Yes Constitutional Constitutional: no acute distress HEENT Exam HEENT Exam: Normal Neck Exam Neck Exam: Normal Respiratory Exam Respiratory Exam: Normal Cardiovascular Exam Cardiovascular Exam: Normal Abdominal Exam Comments: Abdomen is soft and nontender Fundal Exam Fundus: Below Umbilicus Extremities Exam Extremity Exam: Normal and Edema (Bilateral, 1+); negative Calf Tenderness Skin Exam Skin Exam: Normal Neurological Exam Neurological Exam: Normal Psychiatric Exam Psychiatric Exam: Normal Results Hemoglobin/Hematocrit: Hgb 11.5 g/dL (11.2-15.7) 02/25/24 07:02 Hct 36.0 % (36.0-46.0) 02/25/24 07:02 Abnormal Lab Findings: Abnormal Labs 02/24/24 02/25/24 08:42 07:02 MCHC 31.9 L RDW 15.6 H 15.9 H
--- NOTE | 2024-02-25 10:28 | DSE_ITS ---
Date of service: 02/25/24 Time of Service: 10:28 DS: Diagnosis Discharge Diagnosis (1) (normal spontaneous vaginal delivery): Status: Acute Asessment and Plan: day #1 status postnormal spontaneous vaginal delivery after labor induction with Pitocin and artificial rupture. Overall doing well. Discharge home today. Follow-up in 1 to 2 weeks. Continue to check fasting blood sugars over the course of the next 1 to 2 weeks. Will reinstitute insulin as needed. Will have a 2-hour glucose tolerance test at the 6-week examination. All questions answered (2) Modified White class B pregestational diabetes mellitus: Status: Acute (3) Rh negative status during : Status: Acute Discharge Plan Disposition Patient Disposition: Home Condition: Good Discharge Details Reason For Visit: GDM Admit Date/Time: 02/24/24 08:26 Admit Provider: Celena Soto Attending Provider: Celena Soto Primary Care Provider: Stephie Sahni [facility] Course Hospital Course: Patient was admitted to the center at 39 weeks and 1 day for labor induction. She had pregestational diabetes with insulin requirement of 25 units of NPH. She did have some decreasing insulin requirements. She had Pitocin induction of her labor with artificial rupture of membranes and a fairly rapid delivery post rupture. She delivered a viable female infant with Apgars of 8 and 9. She did remarkably well in the period. She had no lacerations of the cervix, vagina, or perineum. She had a qualitative blood loss of 50 mL. She is desirous of discharge day 1. She will be discharged home tonight with short interval follow-up. All of her questions were answered. Home Meds and New Rx's Prescriptions: New ibuprofen 800 mg tablet 800 mg PO Q8H PRNQty: 30 0RF docusate sodium [Colace] 100 mg capsule 100 mg PO BID Qty: 30 0RF No Action magnesium oxide 420 mg tablet 420 mg PO DAILY B-complex with vitamin C Capsule 1 cap PO DAILY docusate sodium 100 mg capsule 100 mg PO DAILY PRN (DME) Dexcom G7 Sensor Device See Rx Instructions .Route Qty: 1 6RF Rx Instructions: As directed insulin aspart U-100 [Novolog FlexPen U-100 Insulin] 100 unit/mL (3 mL) insulin pen 2 unit subcut QACDINNER Qty: 15 1RF Rx Instructions: take 2 units immediately before supper. albuterol sulfate 1.25 mg/3 mL solution for nebulization 1.25 mg inhalation QID PRN (Reason: shortness of breath or wheezing) Qty: 75 1RF albuterol sulfate [Ventolin HFA] 90 mcg/actuation HFA aerosol inhaler 2 puff inhalation Q6H PRN (Reason: shortness of breath or wheezing) Qty: 8.5 3RF escitalopram oxalate 5 mg tablet 5 mg PO DAILY Qty: 90 3RF (DME) pen needle, diabetic 31 gauge x 5/16 needle See Rx Instructions .ROUTE .MEDSUPPLY Qty: 100 1RF Rx Instructions: Daily injections (DME) lancets [OneTouch Delica Plus Lancet] 33 gauge misc See Rx Instructions .Route Qty: 100 4RF Rx Instructions: 4 times daily. (DME) OneTouch Ultra Test Strip See Rx Instructions .Route Qty: 100 3RF Rx Instructions: Use 4x daily with glucometer Novolin N FlexPen 100 unit/mL (3 mL) insulin pen 20 unit subcut QPM Qty: 6 3RF Discharge Instructions Stand Alone Forms: BC Instructions, BC Post Vaginal Deliver Activity:: Pelvic rest Equipment/Supplies:: No Equipment Needed Diet:: As Tolerated Discharge Orders Discharge Orders: Discharge Order (Routine); Ordered 02/25/24 Ordered By: Celena Soto OB:DS Summary Summary Vaginal Delivery Method: Spontaneaous Contraception Discussed Contraception Discussed: Yes Contraceptive Plan: Undecided, [place] Infant Gender-Baby A: Female Status at Discharge Functional status at discharge: independent ambulation Overall status at discharge: patient is back to baseline Mental Status: mental status grossly normal Speech and Movement: speech and movement normal Mood: congruent mood Affect: normal affect Quality:SDOH Health Related Social Needs: No Data to Display Exam Physical Exam Vital signs: Temp Pulse Resp BP Pulse Ox 98 F 84 16 119/77 96 02/25/24 08:00 02/25/24 08:00 02/25/24 08:00 02/25/24 08:00 02/25/24 08:00 Narrative: See physical exam from progress note dated 02/25/2024 [facility] All Active Problems (Updated 02/24/24 @ 19:22 by Celena Soto DO) (normal spontaneous vaginal delivery) (Acute Unknown) Labor induction at 39 weeks and 1 day. Normal spontaneous vaginal delivery. Female . 02/24/2024. Apgars 8 and 9. Kidney abnormality of fetus on ultrasound (Acute) 01/05/24 L kidney with tiny amount of perinephric fluid. Rh negative status during (Acute) Modified White class B pregestational diabetes mellitus (Acute) 6. (Acute) Anxiety (Chronic) Asthma (Chronic) Medical History Modified White class B pregestational diabetes mellitus Constipation Surgical History S/P appendectomy (2017) Family History Mother Essential hypertension Paternal Grandmother , age 54 Breast cancer Asthma Father No problems noted. Sister No problems noted. Brother No problems noted. Son No problems noted. Son No problems noted. Maternal Grandfather No problems noted. Paternal Grandfather , age 76 Stroke Maternal Grandmother Diabetes Depression Son No problems noted. 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 Pets and animals: Yes Pets and animals: cat(s) Sexually active: Yes Do you think of yourself as: straight/heterosexual Current gender identity: female What is your relationship status?: How often do you talk on the phone with friends or family?: three or more times per week How often do you get together with friends or relatives?: twice per week How often do you attend congregational or anabaptism services?: 1-3 times per year Do you belong to any clubs or organized social groups?: no Panel score (0-1 are the most socially isolated patients): 2 What type of physical activity do you participate in: walking Duration: < 15 minutes/day Frequency: daily Bonnie/Catholic: Non restorationism Special bonnie needs: No Seatbelt use: always Helmet use: Yes Helmet use: always Drive intox or ride w/intox parts delivery driver: No Working smoke detector in home: Yes Carbon monox detector in home: Yes Firearms in home: Yes Firearms unloaded and locked: Yes Do you feel safe at home: Yes Do you feel safe in your relationship?: Yes Victim of physical abuse: No Victim of emotional abuse: Yes Victim of sexual abuse: No Female Reproductive History Menstrual control method: pills History History 4 Para 3 Hx # Term Pregnancies 3 Multiple births 0 Hx # Pregnancies 0 Ectopic pregnancies 0 AB induced 0 Hx Number of Living Children 3 AB spontaneous 0 Past Pregnancies Del. Date GA/Weeks # Preg Succ Route Wgt Sex Labor Lgth Anesth esia Location Prov Complic 02/14/13 39 No vaginal 7 lb 15 oz Male 12 hrs regional [facility] - [place] 09/14/16 40 No vaginal 9 lb 12 oz Male 4 hrs [facility] - [place] 03/04/21 39 No vaginal 8 lb 11 oz Male 4hr [facility] - [place] Delivery Date: 02/14/13 Last Updated by: Mayuri Bass CNM nml labor and , epidural, stitches, no complications [place] Delivery Date: 09/14/16 Last Updated by: Mayuri Bass CNM fast labor, used nitrous only, nml , only 4 stitches, no compl ications. [place] Delivery Date: 03/04/21 Last Updated by: Krystal Tamayo M.D. Induction for DM - [place] DS: Data Vitals/I&O Vitals and I&O: Vital Signs Temperature 98 F 02/25/24 08:00 Temperature Source Oral 02/25/24 08:00 Pulse 84 02/25/24 08:00 Pulse Rhythm Regular 02/24/24 13:10 Respiratory Rate 16 02/25/24 08:00 Respiratory Depth Normal 02/25/24 08:00 Blood Pressure 119/77 02/25/24 08:00 Blood Pressure Mean 91 02/25/24 08:00 Pulse Oximetry 96 02/25/24 08:00 Oxygen Delivery Method Room Air 02/24/24 10:31 Oxygen Flow Rate 0 02/24/24 10:31 Pain Level 3 02/25/24 08:10 Intake & Output 02/24/24 02/24/24 02/25/24 11:59 23:59 11:59 Intake Total 34.534 / 34.534 Output Total 250 / 250 500 / 500 Balance -215.466 / -215.466 -500 / -500 Weight 200 lb Intake: IV 34.534 / 34.534 Output: Urine 250 / 250 500 / 500 Other: Urine Color Pale Pale Pale Data Completed and Pending Labs on day of discharge: Labs from last 24 hours 02/25/24 07:02 WBC 8.65 RBC 4.16 Hgb 11.5 Hct 36.0 MCV 87 MCH 27.6 MCHC 31.9 L RDW 15.9 H Plt Count 190 MPV 9.5
[2024-02-25 19:45] VITALS: BP 110/72; PULSE 81; RESP 17; TEMP 36.6; O2SAT 98
== END 2024-02-25 20:00 | disposition home or self-care (01) | DRG 807 ==
PROVIDERS: Admitting Provider Obstetrics & Gynecology; PCP Nurse Practitioner Family; Visit Provider Obstetrics & Gynecology
DX: O24.12 Pre-existing type 2 diabetes mellitus, in childbirth (principal); Z37.0 Single live birth; O26.893 Other specified pregnancy related conditions, third trimester; Z67.91 Unspecified blood type, Rh negative; Z3A.39 39 weeks gestation of pregnancy; Z79.4 Long term (current) use of insulin; O99.52 Diseases of the respiratory system complicating childbirth; O99.344 Other mental disorders complicating childbirth; F41.9 Anxiety disorder, unspecified; J45.909 Unspecified asthma, uncomplicated; O77.0 Labor and delivery complicated by meconium in amniotic fluid
CPT/HCPCS: 36415; 85027; 86850; 86900; 86901

== ENCOUNTER 2024-04-13 09:04 | Outpatient (CLI) | payer MEDICAID, SELFPAY ==
[2024-04-13 11:19] LABS: GTT Comment See Comments
== END 2024-04-13 09:05 | disposition home or self-care (01) ==
LOC: LBO 09:05
PROVIDERS: PCP Nurse Practitioner Family; Visit Provider Obstetrics & Gynecology
DX: O24.439 Gestational diabetes mellitus in the puerperium, unspecified control (principal); O80 Encounter for full-term uncomplicated delivery
CPT/HCPCS: 36415; 82951

== ENCOUNTER 2024-05-07 02:44 | Outpatient (CLI) | payer MEDICAID, SELFPAY ==
[2024-05-07 10:32] LABS: Abs Immature Grans 0.01 10^3/uL (0.0-0.06); Absolute Basophil Count 0.04 10^3/uL (0.0-0.2); Absolute Eosinophil Count 0.03 10^3/uL (0.0-0.7); Absolute Lymphocyte Count 1.79 10^3/uL (1.2-3.4); Absolute Monocyte Count 0.48 10^3/uL (0.1-0.8); Basophils % 0.8 %; Eosinophils % 0.6 %; HGB 12.8 g/dL (11.2-15.7); Immature Grans % 0.2 %; Lymphocytes % 35.4 %; MCH 27.2 pg (27.0-33.0); MCV 85 fL (80-95); Monocytes % 9.5 %; Neutrophils % 53.5 %; Platelet Count 242 10^3/uL (130-400); RDW 13.9 % (11.7-14.6); RDW-SD 43.1 fL; WBC 5.05 10^3/uL (4.4-10.8)
== END 2024-05-07 02:45 | disposition home or self-care (01) ==
LOC: LBO 02:44
PROVIDERS: PCP Nurse Practitioner Family; Visit Provider Obstetrics & Gynecology
DX: Z01.818 Encounter for other preprocedural examination (principal); Z30.9 Encounter for contraceptive management, unspecified
CPT/HCPCS: 36415; 86850; 86900; 86901; 85025

== ENCOUNTER 2024-05-09 06:06 | Day surgery (SDC) | payer MEDICAID, SELFPAY ==
[2024-05-09] VITALS (26 sets, daily range): BP systolic 94–125; BP diastolic 46–85; PULSE 56–83; RESP 11–21; TEMP 36.1–36.6; O2SAT 96–100; BMI 37.8
[2024-05-09] MEDS: Lactated Ringers 1,000 ML 125 ML IV (06:51)
--- NOTE | 2024-05-09 07:06 | ANES.PREOP_ITS ---
General Info Date of Service Date Performed: 05/09/24 Height: 5 ft 7 in Weight: 109.4 kg Body Mass Index (BMI): 37.8 Surgical Procedure: Operation Date: 05/09/24 07:40 Proposed Procedure Side Surgeon p Salpingectomy Laparoscopic Bilateral Celena Soto, DO Actual Procedure Side Surgeon p Salpingectomy Laparoscopic Bilateral Celena Soto, DO Pre-Op Diagnosis Post-Op Diagnosis Undesired fertility Meds Allergies and Home Medications Allergies Allergy/AdvReac Type Severity Reaction Status Date / Time No Known Allergies Allergy Verified 05/09/24 06:42 Home Medication ?Medication ?Instructions ?Recorded albuterol sulfate 1.25 mg/3 mL 1.25 mg (3 mL) inhalation QID PRN 03/25/22 solution for nebulization shortness of breath or wheezing #75 mL albuterol sulfate 90 mcg/actuation 2 puff inhalation Q6H PRN 09/07/22 aerosol inhaler (Ventolin HFA) shortness of breath or wheezing #8.5 grams B-complex with vitamin C 1 cap PO DAILY 04/18/23 magnesium oxide 420 mg tablet 420 mg PO DAILY 04/18/23 escitalopram oxalate 5 mg tablet 5 mg PO DAILY #90 tabs 09/19/23 docusate sodium 100 mg capsule 100 mg PO BID #30 caps 02/25/24 (Colace) norethindrone (contraceptive) 0.35 0.35 mg PO DAILY #84 tabs 04/05/24 mg tablet Current Visit Medications: Current Medications Generic Name Dose Route Start Last Admin Trade Name Freq PRN Reason Stop Dose Admin Ringer's Solution 1,000 mls @ 125 mls/hr 05/09/24 06:00 05/09/24 06:51 IV 06/07/24 23:59 125 mls/hr INFUSION CINTHYA Administration IV Miscellaneous Supplies 1 each 05/09/24 06:00 Iv Access IV 06/07/24 23:59 DIRECTED CINTHYA Sodium Chloride 0 ml 05/09/24 06:00 Normal Saline Flush 10 Ml Syr IV 06/07/24 23:59 PRN PRN Sodium Chloride 0 ml 05/09/24 06:00 Normal Saline 10 Ml Vial IJ 06/07/24 23:59 DIRECTED PRN Sterile Water 0 ml 05/09/24 06:00 Water,Injection,Sterile 10 Ml Vial IJ 06/07/24 23:59 DIRECTED PRN PFSH Active Problems Active Problems: Problem Status Onset Code Contraceptive management Acute Z30.9 Anxiety Chronic F41.9 Asthma Chronic Medical History Medical History Modified White class B pregestational diabetes mellitus (normal spontaneous vaginal delivery) (Unknown) Labor induction at 39 weeks and 1 day. Normal spontaneous vaginal delivery. Female . 02/24/2024. Apgars 8 and 9. Constipation Surgical History Surgical History S/P appendectomy (2017) Tobacco Smoking/Tobacco Use Status: Never Passive smoking exposure: No Second hand exposure: Yes Alcohol Alcohol Intake: current Alcohol intake frequency: holidays/special occasions only Alcohol type: beer and hard liquor Substance Use Substance use: Never Substance use type: does not use Prental History History 4 Para 4 Hx # Term Pregnancies 4 Multiple births 0 Hx # Pregnancies 0 Ectopic pregnancies 0 AB induced 0 Hx Number of Living Children 4 AB spontaneous 0 Past Pregnancies Del. Date GA/Weeks # Preg Succ Route Wgt Sex Labor Lgth Anesth esia Location Prov Complic 02/14/13 39 No vaginal 3600.389 g Male 12 hrs regional [facility] [place] 09/14/16 40 No vaginal 4422.526 g Male 4 hrs [facility] - [place] 03/04/21 39 No vaginal 3940.584 g Male 4hr [facility] - [place] 03/25/24 39 No Yes vaginal 4195.729 g Female Myah tse MD Delivery Date: 02/14/13 Last Updated by: Mayuri Bass CNM nml labor and , epidural, stitches, no complications [place] Delivery Date: 09/14/16 Last Updated by: Mayuri Bass CNM fast labor, used nitrous only, nml , only 4 stitches, no complications. [place] Delivery Date: 03/04/21 Last Updated by: Krystal Tamayo M.D. Induction for DM - [place] Delivery Date: 03/25/24 Last Updated by: Krystal Tamayo MD Induced for Chronic Maternal Diabetes [place] Vital Signs and Lab Results Vital Signs Most Recent Vital Signs in EMR: Most Recent Vital Signs Temp Pulse Resp BP Pulse Ox 36.5 C 83 16 125/85 98 05/09/24 06:21 05/09/24 06:21 05/09/24 06:21 05/09/24 06:21 05/09/24 06:21 Point of Care Results Point of Care Results: POC- Test(urine) Negative 05/09/24 06:52 Lab Results Blood Type / Crossmatch: Antibody Screen NEGATIVE 05/07/24 Complete Blood Count: White Blood Count 5.05 10^3/uL (4.4-10.8) 05/07/24 10:25 Red Blood Count 4.70 10^6/uL (3.93-5.22) 05/07/24 10:25 Hemoglobin 12.8 g/dL (11.2-15.7) 05/07/24 10: Hematocrit 40.0 % (36.0-46.0) 05/07/24 10: Platelet Count 242 10^3/uL (130-400) 05/07/24 10:25 Complete Metabolic Panel: No Data to Display Liver Function Panel: No Data to Display Coagulation Panel: No Data to Display Cardiac Panel: No Data to Display Arterial Blood Gas: No Data to Display Venous Blood Gas: No Data to Display Pancreas Panel: No Data to Display Thyroid Panel: No Data to Display Infectious Disease: No Data to Display Blood Cultures: No Data to Display Toxicology Panel: No Data to Display Panel: No Data to Display Imaging and Studies Imaging and Studies Study information below may be from another EMR and interpreted by another provider. Please see original notes in EMR for more complete details. EKG Summary: EKG PATIENT NAME: Abram Guo UNIT #: [id number] ORDERING PROVIDER: Betty Hutton M.D. PRIMARY CARE PROVIDER: SEHY PhD CUT OFF SAW TENDER METAL,MARLENY DATE/TIME OF SERVICE: 09/27/211937 : 1995 PERFORMING LOCATION: ER APPROVED REPORT Exam: Resting ECG Reason for Exam: dizziness Patient Location: E HR:92 bpm ECG Measurements Heart Rate [address] 131 P 71 QRSd 101 QRS 14 QT 358 T20 QTc 442 Conclusion Sinus rhythm...normal P axis, V-rate 60- 99 <Electronically signed by BETTY HUTTON MD in [place]> E-Sign Date: 09/27/21 E-Sign Time: 1939 ADDENDUM APPROVED REPORT Exam: Resting ECG Reason for Exam: dizziness Patient Location: E HR:92 bpm ECG Measurements Heart Rate [address] 131 P 71 QRSd 101 QRS 14 QT 358 T20 QTc 442 Conclusion Sinus rhythm...normal P axis, V-rate 60- 99 I have reviewed and I agree with the emergency room physician's ECG interpretation. Electronically signed by: <Electronically signed by Sophia Cadet M.D. in [place]> 09/29/21 0825 Cosigned by: Anesthesia Assessment and Plan Anesthesia History Personal History: No History of Anesthesia Complications Family History: No Family History of Anesthesia Complications Exercise Tolerance Exercise Tolerance: Metabolic Equivalents>4 Pertinent Negatives Pertinent Negatives: No Symptoms of GERD Cardiac & Pulmonary Exam Cardiac Exam: Normal S1/S2 Heart Sounds Pulmonary Exam: Clear Bilateral Breath Sounds Implantable Cardiac Device Does patient have a Pacemaker or an ICD?: No Airway Exam Known Difficult Airway: No Mallampati Class: 2 Mouth Opening: Normal (> 3cm) Thyromental Distance: Greater than 3 cm Neck Range of Motion: Full ROM Neck Circumference: Normal Teeth Condition: Normal Dentition ASA Classification ASA Score: ASA 2 Emergency Case?: No NPO Status NPO Status: NPO Clears >2 hours, Solids >8 hours Status Status: Negative HCG Anesthesia Plan Resuscitation Status: Full Code Anesthesia Technique: General Anesthesia Airway Planned: Endotracheal Tube Monitors Used: Standard Monitors
--- NOTE | 2024-05-09 08:20 | FALL_PTH ---
PATIENT: Abram Guo LOC: [facility] U#:[id number] AGE/SX: 28/F ROOM: RE05/09/[address]: Celena Soto DO : 1995 BED: DIS: 05/09/2024 SPEC #: [id number] RECD: 05/09/24 12:54 STATUS: BONG REQ #: [id number] JENNY: 05/09/24 08:[address]: Celena Soto DEPT: Surgical Specimen RECD BY: Kavitha Lee ENTERED: 05/09/24 12:55 SP TYPE: Fall OTHR DR: Stephie Sahni, NATE Tissues: 1 - FALLOPIAN TUBE (STERILIZATION) 2 - FALLOPIAN TUBE (STERILIZATION) Procedures: GROSS AND MICRO LEVEL 2 Comments: [id number]
[2024-05-09] MEDS: metroNIDAZOLE 500 MG/100 ML BAG 100 MG IVPB (08:21)
[2024-05-09] MEDS: Bupivacaine 0.25% Pres-Free 30 ML VIAL (08:22)
--- NOTE | 2024-05-09 09:05 | W.PM.OP ---
Operative Note Operative Note PRE-OP DIAGNOSIS: Undesired fertility POST-OP DIAGNOSIS: same Serosal versus muscularis stab wound to the bowel with Veress needle. PROCEDURE: Laparoscopic bilateral salpingectomy SURGEON: Celena Soto DRYWALL TAPER: Krystal Tamayo ANESTHESIA TYPE: Local By Surgeon and General LMA/ETT Refer to Anesthesia Record ESTIMATED BLOOD LOSS: 10 PATHOLOGY: other (1. Left fallopian tube 2. Right fallopian tube) COMPLICATIONS: Other (Possible penetration of large bowel with various needle versus serosal penetration) Patient was transported to: PACU Patient's condition: stable Indications: Undesired fertility Findings: Normal-appearing tubes, ovaries, uterus. Possible puncture wound to the large bowel versus serosal penetration with various needle. No other intra-abdominal pathology or trauma noted. No adhesive disease. Procedure Description: After full informed consent was obtained, patient was taken the operating suite with IV running. She is placed in dorsal supine position and endotracheal intubation performed for the administration of general anesthesia with ease. She had drainage of her gastric contents with an OG tube per anesthesia. She was placed in the modified dorsolithotomy position in [facility]. Prior to the procedure, no antibiotic prophylaxis was warranted. She had pneumatic compression stockings for DVT prophylaxis. She was prepped and draped in the usual sterile fashion and a timeout was held. At this point, attention was turned to the vaginal vault where a speculum was inserted and a Hulka uterine manipulator placed through the cervix for uterine manipulation. The speculum was then removed and attention was returned to the abdomen. 1/4 percent Marcaine was used to infiltrate the umbilical area and a horizontal skin incision was made. Sharp towel clips were used to elevate the anterior abdominal wall and the Veress needle inserted. Pneumoperitoneum was created with easy CO2 gas flow initially with initial pressures being 2. There was a slight increase in pressure and due to this, there is needle was retracted, and reinserted. Again free flow of CO2 gas initially with pressure of 2, to a maximum pressure of 10 mmHg. At this point a bladeless sleeve and trocar were inserted into the abdomen under direct visualization. On inspection, at the underlying the large bowel, there was a tiny, 1 mm spot of blood on the bowel. In light of this, the concern was for puncture to the large colon. General anesthesia consultation performed intraoperatively. At this point a second and third, right and left lower quadrant trocar site with a 5 mm scope were placed under direct visualization after infiltration of quarter percent Marcaine. Dr. Burk present for inspection of the area of concern. There was no ongoing bleeding from that lesion or area. There was no gas bubbling from the colon whatsoever. Pressure was placed on the area surrounding the lesion, with no gas, colon contents, or blood return. Patient then received 2 doses of antibiotics, Flagyl 500 mg, and Ancef 2 g for the potential of contamination from the needle. At this point, the procedure continued and there was visualization of the left fallopian tube which was then elevated and cautery transected. The left fallopian was removed through the 10 mm port. The pedicle was again cauterized as there is 1 area that was not hemostatic achieving appropriate hemostasis. Attention was then turned to the right fallopian tube which was again elevated and cautery transected for removal. Tube was removed through the 12 mm port. In that pedicle was also inspected and 1 area had a small amount of ooze which was again cauterized and noted to be hemostatic. Due to the slightly increased length of procedure, her bladder was noted to be somewhat full. At this point procedure paused, I regloved and emptied her bladder for 400 cc of clear yellow urine. This allowed significantly improved visualization of the pelvis and the lower aspect of the uterus. The abdomen was then irrigated with copious amounts of normal saline including all of the pedicles, and the area of concern. There was no ongoing bleeding, gas expression, or use of GI contents. It would appear that this area of concern was a superficial lesion, rather than a through and through puncture, however patient will be monitored closely. Low pressure was then used to inspect the fallopian tube pedicles, and again the area of concern with no ongoing blood loss. At this point, pneumoperitoneum was completely released, and trocars removed from the abdomen. The patient was then returned to the dorsal supine position after releasing Trendelenburg. The fascial incision was closed using 0 Vicryl suture in a simple interrupted fashion. Skin edges were reapproximated with 4-0 undyed Monocryl and Steri-Strips and sterile dressing were placed. Hulka uterine manipulator was then removed and the patient was returned to the dorsal supine position. She woke from anesthesia without difficulty and was taken to the postanesthesia care unit in stable condition. EBL: 10 mL Fluids: Crystalloid per anesthesia Pathology: 1 left fallopian tube 2. Right fallopian tube Complication: possible penetration of the large bowel with a Veress needle versus superficial penetration of the serosal surface. Prophylactic antibiotics given. Copious irrigation and multiple visualizations of the spot with no evidence of leakage of bowel contents, gas, or ongoing bleeding. Date of Procedure: 05/09/24
[2024-05-09] MEDS: fentaNYL 100 MCG/2 ML VIAL IVP (09:23)
--- NOTE | 2024-05-09 10:23 | W.ANESPOSTOP ---
Postoperative Evaluation Date, Time and Location Date Performed: 05/09/24 Time Performed: 10:23 Patient Location: Day Surgery Unit Vital Signs Most Recent Imported Vital Signs: Most Recent Vital Signs Temp Pulse Resp BP Pulse Ox 36.2 C L 65 16 94/69 L 99 05/09/24 10:00 05/09/24 10:00 05/09/24 10:00 05/09/24 10:00 05/09/24 10:00 Pain Score Most Recent Pain Score: Most Recent Pain Score Pain Level 0 05/09/24 10:00 Assessment Mental Status: Arousable with meaningful communication (Patient resting in bed, woke to light voice. Had meaningful conversation. All questions answered and patient doing well. ) Airway and Respiratory Function: Patent airway with normal (patient baseline) respiratory exam Cardiovascular Function: Hemodynamically Stable Hydration Status: Adequately Hydrated Nausea & Vomiting: No Nausea or Vomiting Pain: Pt. Denies Any Pain Peripheral Nerve Block: Patient did not receive a nerve block
--- NOTE | 2024-05-09 11:05 | PGE_ITS ---
Date of Service Date of service: 05/09/24 Time of Service: 11:05 Assessment and Plan Assessment and plan (1) Status post tubal ligation: Status: Acute Assessment and plan: Surgical intervention discussed. Will follow-up in the office tomorrow. Precautions given. Subjective Subjective Interval history since last seen: Patient seen in the immediate postoperative period. Awake, alert, resting comfortably. Surgical intervention discussed with the patient and the potential that there may have been a small bowel perforation with the Veress needle. I did explain that general surgery evaluated the area, she received antibiotics and will be watching her closely. We discussed the signs and symptoms of delayed complication may include increased pain, nausea, vomiting, poor GI function, fever, chills. She will report any of these. She will be seen in the office tomorrow for evaluation. Appointment is scheduled for 2:00. All questions answered Objective Last Vital Signs Temp 97.5 F L 05/09/24 10:30 Pulse 61 05/09/24 10:30 Resp 16 05/09/24 10:30 BP 107/65 05/09/24 10:30 Pulse Ox 99 05/09/24 10:30 Time Spent with Patient Time Spent with Patient: 25-34 minutes Time was spent: preparing to see the patient(eg.review tests), obtaining and/or reviewing separately otained hiistory, ordering medications,tests, procedures, referring, communicating with other health child care center assistant director and counseling the patient
== END 2024-05-09 12:28 | disposition home or self-care (01) ==
PROVIDERS: PCP Nurse Practitioner Family; Visit Provider Obstetrics & Gynecology
PROC: (CPT 58661; principal; 2024-05-09 07:30)
DX: Z30.2 Encounter for sterilization (principal); K91.72 Accidental puncture and laceration of a digestive system organ or structure during other procedure; J45.909 Unspecified asthma, uncomplicated; F41.9 Anxiety disorder, unspecified
CPT/HCPCS: 58661; 88302; J0131; J0665; J0690; J1100; J1836; J2003; J2250; J2405; J2704; J3010

== ENCOUNTER 2024-12-04 19:27 | Emergency (ER) | payer BC, MEDICAID, SELFPAY ==
--- NOTE | 2024-12-04 19:30 | RT.EKG_ITS ---
APPROVED REPORT Exam: Resting ECG Reason for Exam: near syncope Patient Location: E HR:89 bpm ECG Measurements Heart Rate 89 AXIS WI 127 P 27 QRSd 97 QRS 13 QT 355 T 71 QTc 432 Conclusion Sinus rhythm...normal P axis, V-rate 60- 99 Normal Electrocardiogram
[2024-12-04 19:34] VITALS: BP 122/81; PULSE 95; RESP 20; TEMP 36.2; O2SAT 98
--- NOTE | 2024-12-04 19:47 | ED.GENADUL_ITS ---
Discharge Plan Disposition Patient Disposition: Home Condition: Good Discharge Details Clinical Impression: COVID-19 Primary Care Provider: Stephie Sahni ED Provider: Keo Davila and New Rx's Prescriptions: New nirmatrelvir-ritonavir 300 mg (150 mg x 2)-100 mg tablets,dose pack See Rx Instructions .ROUTE .COMPLEX Qty: 1 0RF Rx Instructions: take TWO 150 mg tablets of nirmatrelvir with ONE 100 mg tablet of ritonavir twice daily for 5 days Continued magnesium oxide 420 mg tablet 420 mg PO DAILY B-complex with vitamin C Capsule 1 cap PO DAILY escitalopram oxalate 10 mg tablet 10 mg PO DAILY Qty: 90 3RF docusate sodium [Colace] 100 mg capsule 100 mg PO BID Qty: 30 0RF ibuprofen 800 mg tablet 800 mg PO Q8H PRNQty: 60 0RF No Action albuterol sulfate [Ventolin HFA] 90 mcg/actuation HFA aerosol inhaler 2 puff inhalation Q6H PRN (Reason: shortness of breath or wheezing) Qty: 8.5 3RF albuterol sulfate 1.25 mg/3 mL solution for nebulization 1.25 mg inhalation QID PRN (Reason: shortness of breath or wheezing) Qty: 75 1RF Discharge Instructions Instructions: COVID-19 ED Additional Instructions: You were seen in the ED for chest tightness and URI symptoms with some associated tingling involving the face and hands mostly consistent with hyperventilation. You were found to be COVID-positive. Your labs, chest x-ray, exam otherwise reassuring. Given your history of asthma we do recommend taking Paxlovid and prescription has been sent to your pharmacy. Use your albuterol inhaler 2 puffs every 6 hours over the next few days. Follow-up with primary care next week if you do not feel you are improving. Return to ED for any mental status change, increasing shortness of breath, chest pain, vomiting, other concerns. Referrals: Stephie Sahni NP [Primary Care Provider, Medicine] Discharge Data Discharge Date/Time-TO BE ENTERED AT DEPARTURE: 12/04/24 23:02 HPI General Mode of arrival: ambulatory . Date/Time Provider Initiated Documentation: 12/04/24 19:44 . Limitations to Documentation: no limitations . Information obtained by: patient and RN notes reviewed . HPI Narrative: Patient presents to ED with complaint of feeling lightheaded and developing facial numbness and hand numbness and tingling on and off this evening. She has had no actual loss of consciousness. She did develop URI type symptoms this morning. She has some body ache, cough, congestion. Does not necessarily have any type of shortness of breath. Does not having chest pain. Denies any GI symptoms. Denies any focal neurologic change and does not had loss of sensation. Related Data Home Medications ?Medication ?Instructions ?Recorded ?Confirmed B-complex with vitamin C 1 cap PO DAILY 04/18/2312/20 magnesium oxide 420 mg tablet 420 mg PO DAILY 04/18/23 12/04/24 docusate sodium 100 mg capsule 100 mg PO BID #30 caps 02/25/24 12/04/24 (Colace) ibuprofen 800 mg tablet 800 mg PO Q8H PRN #60 tabs 0 05/09/24 12/04/24 escitalopram oxalate 10 mg tablet 10 mg PO DAILY #90 t abs 08/03/24 12/04/24 nirmatrelvir 300 mg (150 mg See Rx Instructions PO .CO MPLEX #1 12/04/24 x2)-ritonavir 100 mg tablet,dose pkg pack albuterol sulfate 1.25 mg/3 mL 1.25 mg (3 mL) inhalati on QID PRN 12/05/24 solution for nebulization shortness of breath or wheez ing #75 mL albuterol sulfate 90 mcg/actuation 2 puff inhalation Q 6H PRN 12/05/24 aerosol inhaler (Ventolin HFA) shortness of breath or wheezing #8.5 grams Previous Rx's ?Medication ?Instructions ?Recorded docusate sodium 100 mg capsule 100 mg PO BID #30 caps 02/25/24 (Colace) ibuprofen 800 mg tablet 800 mg PO Q8H PRN #60 tabs 0 05/09/24 escitalopram oxalate 10 mg tablet 10 mg PO DAILY #90 t abs 08/03/24 nirmatrelvir 300 mg (150 mg See Rx Instructions PO .CO MPLEX #1 12/04/24 x2)-ritonavir 100 mg tablet,dose pkg pack albuterol sulfate 1.25 mg/3 mL 1.25 mg (3 mL) inhalati on QID PRN 12/05/24 solution for nebulization shortness of breath or wheez ing #75 mL albuterol sulfate 90 mcg/actuation 2 puff inhalation Q 6H PRN 12/05/24 aerosol inhaler (Ventolin HFA) shortness of breath or wheezing #8.5 grams Allergies Allergy/AdvReac Type Severity Reaction Status Date / Time No Known Allergies Allergy Verified 12/04/24 19:33 General Stated Complaint: Dizzy/Sync TEO: 3 Exam Narrative Exam Narrative: Const: Obese female in NAD. VS per triage. HEENT: NC/AT. Normal facial exam. Neck: Supple. Trachea midline. Lungs: Normal respiratory effort. Lungs are clear. Cor: RRR without murmur. Good radial pulses. GI: Soft/ND/NT. Neuro: A+O x 3. Normal speech, mentation, gait. Cranial nerves II - XII grossly intact. No gross motor or sensory deficit. Ext: No C/C/E. Course Vital Signs Vital signs: Vital Signs Temperature 97.1 F L 12/04/24 19:34 Pulse 95 H 12/04/24 19:34 Respiratory Rate 20 12/04/24 19:34 Blood Pressure 122/81 12/04/24 19:34 Pulse Oximetry 98 12/04/24 19:34 Temperature 97.1 F L 12/04/24 19:34 Temperature Source Oral 12/04/24 19:34 Pulse 95 H 12/04/24 19:34 Respiratory Rate 20 12/04/24 19:34 Blood Pressure 122/81 12/04/24 19:34 Blood Pressure Position Sitting 12/04/24 19:34 Pulse Oximetry 98 12/04/24 19:34 Oxygen Delivery Method Room Air 12/04/24 19:34 Oxygen Flow Rate 0 12/04/24 19:34 Pain Level 0 12/04/24 19:34 Medical Decision Making Patient presenting to ED with onset of URI type symptoms this morning and episodes of feeling lightheaded with tingling in the face and bilateral hands. No syncope, shortness of breath, chest pain or pressure. No loss of sensation and no focal neurologic deficits. Looks well otherwise and exam unremarkable. EKG obtained on arrival is normal per my interpretation. Symptoms in regards to tingling involving the face and bilateral hands suggest hyperventilation. She is having URI symptoms. Rapid strep and COVID/flu POC obtained. IV established and laboratory studies obtained. Chest x-ray ordered. Rapid strep is negative. She is however COVID-positive. Chest x-ray per my read with no acute process. Laboratory studies otherwise unremarkable. Venous blood gases normal. No electrolyte abnormalities. No anemia. Patient does have risk factors for possible severe COVID including obesity and asthma. Discussed risk and benefit of Paxlovid. Patient would like prescription for same. Patient instructed to use albuterol inhaler every 4-6 hours over the next few days. Follow-up with primary care next week for recheck if not improving. Return precautions provided. Imaging Data Radiologic Study: Attestation: I personally reviewed and interpreted this imaging study as follows: Imaging: X-Ray My impression: NAD Lab Data Lab results reviewed: Yes I reviewed the patient's lab results. Lab results narrative: see [facility] ECG Data Attestation: I personally reviewed and interpreted this ECG (s) as follows: Prior ECG tracings: available for review Interpretation: see EKG/MDM [facility] All Active Problems (Updated 12/04/24 @ 22:31 by Keo Davila MD) COVID-19 (Acute) Delayed menses (Acute) Dysfunctional uterine bleeding (Acute) Anxiety (Chronic) Asthma (Chronic) Medical History Modified White class B pregestational diabetes mellitus (normal spontaneous vaginal delivery) (Unknown) Labor induction at 39 weeks and 1 day. Normal spontaneous vaginal delivery. Female . 02/24/2024. Apgars 8 and 9. Constipation Surgical History Status post tubal ligation Bilateral laparoscopic salpingectomy performed 05/09/2024 S/P appendectomy (2017) Family History Mother Essential hypertension Paternal Grandmother , age 54 Breast cancer Asthma Father No problems noted. Sister No problems noted. Brother No problems noted. Son No problems noted. Son No problems noted. Maternal Grandfather No problems noted. Paternal Grandfather , age 76 Stroke Maternal Grandmother Diabetes Depression Son No problems noted. 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 [employer] Pets and animals: Yes Pets and animals: cat(s) Sexually active: Yes Do you think of yourself as: straight/heterosexual Current gender identity: female What is your relationship status?: How often do you talk on the phone with friends or family?: three or more times per week How often do you get together with friends or relatives?: three or more times per week How often do you attend jewish or church services?: 1-3 times per year Do you belong to any clubs or organized social groups?: no Panel score (0-1 are the most socially isolated patients): 2 What type of physical activity do you participate in: walking Duration: < 15 minutes/day Frequency: daily Bonnie/Presybeterian: Non lutheran Special bonnie needs: No Seatbelt use: always Helmet use: Yes Helmet use: always Drive intox or ride w/intox garbage truck driver: No Working smoke detector in home: Yes Carbon monox detector in home: Yes Firearms in home: Yes Firearms unloaded and locked: Yes Do you feel safe at home: Yes Do you feel safe in your relationship?: Yes Victim of physical abuse: No Victim of emotional abuse: Yes Victim of sexual abuse: No Would you like helpful sources: No Female Reproductive History Menstrual control method: pills History History 4 Para 4 Hx # Term Pregnancies 4 Multiple births 0 Hx # Pregnancies 0 Ectopic pregnancies 0 AB induced 0 Hx Number of Living Children 4 AB spontaneous 0 Past Pregnancies Del. Date GA/Weeks # Preg Succ Route Wgt Sex Labor Lgth Anesth esia Location [facility] 02/14/13 39 No vaginal 3600.389 g Male 12 hrs [facility] [place] 09/14/16 40 No vaginal 4422.526 g Male 4 hrs [facility] [place] 03/04/21 39 No vaginal 3940.584 g Male 4hr [facility] - [facility] 03/25/24 39 No Yes vaginal 4195.729 g Female Myah tse MD Delivery Date: 02/14/13 Last Updated by: Mayuri Bass CNM nml labor and , epidural, stitches, no complications [place] Delivery Date: 09/14/16 Last Updated by: Mayuri Bass CNM fast labor, used nitrous only, nml , only 4 stitches, no complications. [place] Delivery Date: 03/04/21 Last Updated by: Krystal Tamayo M.D. Induction for DM - [place] Delivery Date: 03/25/24 Last Updated by: Krystal Tamayo MD Induced for Chronic Maternal Diabetes [facility]
[2024-12-04] MEDS: Normal Saline 1,000 ML 1000 ML IV (21:00)
[2024-12-04 21:07] LABS: BE (Venous) -1 mmol/L (-2-3); HCO3 (Venous) 24 mmol/L (23-28); O2 Sat (Venous) 88 %; TCO2 (Venous) 22 mmol/L (24-29); pCO2 (Venous) 42 mmHg (41-51); pO2 (Venous) 55 mmHg
[2024-12-04 21:08] LABS: Abs Immature Grans 0.01 10^3/uL (0.0-0.06); HCT 38.0 % (36.0-46.0); HGB 12.1 g/dL (11.2-15.7); Immature Grans % 0.2 %; MCH 26.3 pg (27.0-33.0); MCHC 31.8 % (32.0-36.0); MCV 83 fL (80-95); MPV 9.2 fL (8.0-11.0); Platelet Count 240 10^3/uL (130-400); RBC 4.60 10^6/uL (3.93-5.22); RDW 14.5 % (11.7-14.6); RDW-SD 43.3 fL; WBC 5.09 10^3/uL (4.4-10.8)
[2024-12-04 21:26] LABS: ALT 33 U/L (14-59); AST 19 U/L (15-37); Albumin 3.5 g/dL (3.4-5.0); Alkaline Phosphatase 167 U/L (46-116); Anion Gap 8.8 mmol/L (3-11); BUN 12 mg/dL (7-18); Bilirubin, Total 0.2 mg/dL (0.2-1.0); CO2 25.2 mmol/L (21.0-32.0); Calcium 8.7 mg/dL (8.5-10.1); Chloride 106 mmol/L (98-107); Estimated GFR 101.59 (mL/min/1.73m2); Glucose 105 mg/dL (74-106); Magnesium 1.9 mg/dL (1.8-2.4); Potassium 3.7 mmol/L (3.5-5.1); Sodium 140 mmol/L (136-145); Total Protein 7.3 g/dL (6.4-8.2)
[2024-12-04 21:44] LABS: HCG Qual (Serum) Negative
--- NOTE | 2024-12-04 21:45 | DI.RAD_ITS ---
Exam(s) XR CHEST 2V PA LATERAL EXAM: XR CHEST 2V PA LATERAL CLINICAL HISTORY: chest tightness, cough TECHNIQUE: 2D digital imaging was performed. Two views. COMPARISON: CR CHEST 2 VIEWS PA,LAT from 03/25/2010 FINDINGS: HEART: Normal size. Aorta: Not dilated. PULMONARY VASCULATURE: Normal. MEDIASTINUM: Unremarkable. LUNGS: Clear. PLEURAL SPACE: No pleural effusion or pneumothorax. BONE:Unremarkable for age. SOFT TISSUES: Unremarkable. IMPRESSION: No acute abnormality. The preliminary [facility] report was reviewed. DATA REPOSITORY: RADIATION DOSE DELIVERED:
[2024-12-04 22:59] VITALS: PULSE 86; RESP 17; TEMP 37.1; O2SAT 98
--- NOTE | 2024-12-04 23:55 | DI.[facility]_ITS ---
PROCEDURE INFORMATION: Exam: XR Chest Exam date and time: 12/04/2024 10:20 PM Age: 28 years old Clinical indication: Cough and other: Chest tightness; Additional info: Chest tightness, cough TECHNIQUE: Imaging protocol: Radiologic exam of the chest. Views: 2 views. COMPARISON: No relevant prior studies available. FINDINGS: Lungs: Unremarkable. No consolidation. Pleural spaces: Unremarkable. No pleural effusion. No pneumothorax. Heart/Mediastinum: Unremarkable. No cardiomegaly. Bones/joints: Unremarkable. IMPRESSION: No acute findings. Dictated and Authenticated by: Nakul Mas MD. Orderin Giovanni Crowley MD
== END 2024-12-04 23:02 | disposition home or self-care (01) ==
PROVIDERS: Emergency Provider Emergency Medicine; PCP Nurse Practitioner Family
DX: U07.1 COVID-19 (principal); R42 Dizziness and giddiness
CPT/HCPCS: 99284; 99283; 87428; 80053; 82805; 93005; 96360; 71046; 83735; 84703; 85025; 93010

== ENCOUNTER 2024-12-12 02:11 | Outpatient (CLI) | payer BC, MEDICAID, SELFPAY ==
[2024-12-12 10:37] LABS: HCG Quant, Pregnancy 1 mIU/mL (1-3); TSH (W/Ref FT4) 1.09 uIU/mL (0.36-3.74)
[2024-12-12 18:49] LABS: FSH 8.0 mIU/mL (See Note)
== END 2024-12-12 02:12 | disposition home or self-care (01) ==
LOC: LBO 02:12
PROVIDERS: PCP Nurse Practitioner Family; Visit Provider Obstetrics & Gynecology
DX: N91.0 Primary amenorrhea (principal); Z98.51 Tubal ligation status
CPT/HCPCS: 36415; 82670; 83001; 84443; 84702

== ENCOUNTER 2025-01-01 01:34 | Outpatient (CLI) | payer BC, MEDICAID, SELFPAY ==
--- NOTE | 2025-01-01 11:36 | TELEFU_ITS ---
Date of service: 01/01/25 Time of Service: 09:00 Nutrition Note NOTE: Obdulia referred to nutrition visit today d/t her concerns over her weight. Had gestational diabetes requiring insulin for her last 2 pregnancies and knows she is also at risk for DMII if she doesn't some excess fat. She is a busy mother of 4 and works from home as well. She reports no food allergies and feels she is not a picky eater. She currently does not eat breakfast- tends to have a coffee (sometimes mocha s ometimes just creamer) Will have late breakfastor early lunch meal and then might snack and have dinner at home - has been trying to stop eating after dinner. no consistent exercise currently and life is stressful. Trying to read labels more - opted for some 9 grain bread recently. Initial assessment per interview: current diet pattern low in fiber, prone to refined carbs (flavored instant oats) and most days does not meet optimal protein intake for weight mgt. We discussed the following: -if tracking or coming up with menus, consider ~2000kcals, 150g protein, at least 30g fiber and no more than 30g added sugars great guidelines to achieve through menu planning and habit changes with food selections. -consider 1 scoop whey and 1 scoop collagen per day to assist in meeting protein needs. -choose plant proteins often for low kcal choices that are high in fiber and count towards protein goal. -avoid fruit juice and sweetened bevs - only choose diet drinks occasionally. - try to work on breakfast habit that helps with achieving fiber and protein goals -avoid eating after 7pm -try engaging in an exercise habit. -make sure grain products have at least 3g fiber per serving. -choose lean animal protein choices to help avoid going over 2000kcals She took my card and some notes we wrote out throughout the appt. Obdulia will call to schedule follow up if desired and knows to call/email with any quick questions. Time Spent in Nutritional Counseling and Treatment: 40 min
== END 2025-01-01 01:35 | disposition home or self-care (01) ==
LOC: DS 01:34
PROVIDERS: PCP Nurse Practitioner Family; Visit Provider Dietitian, Registered
DX: E66.01 Morbid (severe) obesity due to excess calories (principal)
CPT/HCPCS: 00123; 97802

== ENCOUNTER 2025-01-16 01:36 | Outpatient (CLI) | payer BC, MEDICAID, SELFPAY ==
[2025-01-16 09:50] LABS: ALT 33 U/L (14-59); AST 17 U/L (15-37); Albumin 3.9 g/dL (3.4-5.0); Alkaline Phosphatase 191 U/L (46-116); Anion Gap 11.3 mmol/L (3-11); BUN 12 mg/dL (7-18); Bilirubin, Total 0.4 mg/dL (0.2-1.0); CO2 26.7 mmol/L (21.0-32.0); Calcium 9.6 mg/dL (8.5-10.1); Chloride 103 mmol/L (98-107); Estimated GFR 118.51 (mL/min/1.73m2); Glucose 99 mg/dL (74-106); Potassium 4.1 mmol/L (3.5-5.1); Sodium 141 mmol/L (136-145); Total Protein 8.2 g/dL (6.4-8.2)
[2025-01-16 18:12] LABS: LH 3.9 mIU/mL (See Note)
[2025-01-16 18:14] LABS: FSH 7.6 mIU/mL (See Note)
== END 2025-01-16 01:37 | disposition home or self-care (01) ==
LOC: LBO 01:36
PROVIDERS: PCP Nurse Practitioner Family; Visit Provider Obstetrics & Gynecology
DX: N93.8 Other specified abnormal uterine and vaginal bleeding (principal)
CPT/HCPCS: 36415; 80053; 83498; 83001; 83002

== ENCOUNTER 2025-02-01 03:02 | Outpatient (CLI) | payer BC, MEDICAID, SELFPAY ==
[2025-02-07 14:26] LABS: Alkaline Phosphatase 152 U/L (35 - 104); Liver % 74.3 % (30.2-74.7)
== END 2025-02-01 03:03 | disposition home or self-care (01) ==
LOC: LBO 03:03
PROVIDERS: PCP Nurse Practitioner Family; Visit Provider Obstetrics & Gynecology
DX: R74.8 Abnormal levels of other serum enzymes (principal)
CPT/HCPCS: 36415; 84075; 84080

== ENCOUNTER 2025-02-11 15:52 | Emergency (ER) | payer BC, MEDICAID, SELFPAY ==
[2025-02-11 15:52] VITALS: BP 136/82; PULSE 84; RESP 18; TEMP 36.8; O2SAT 98
[2025-02-11 16:00] VITALS: BP 136/82; PULSE 84; RESP 18; TEMP 36.8; O2SAT 98
[2025-02-11 16:26] LABS: Abs Immature Grans 0.02 10^3/uL (0.0-0.06); HCT 39.3 % (36.0-46.0); HGB 12.7 g/dL (11.2-15.7); Immature Grans % 0.3 %; MCH 26.1 pg (27.0-33.0); MCHC 32.3 % (32.0-36.0); MCV 81 fL (80-95); MPV 9.0 fL (8.0-11.0); Platelet Count 315 10^3/uL (130-400); RBC 4.87 10^6/uL (3.93-5.22); RDW 13.6 % (11.7-14.6); RDW-SD 39.7 fL; WBC 6.75 10^3/uL (4.4-10.8)
[2025-02-11] MEDS: ACETAMINOPHEN 1,000 MG/100 ML BAG 400 MG IVPB (16:34)
[2025-02-11] MEDS: Droperidol 5 MG/2 ML VIAL 2.5 MG IVP (16:34)
[2025-02-11] MEDS: Normal Saline 50 ML (16:35)
[2025-02-11 16:47] LABS: Lipase 40 U/L (<53)
[2025-02-11 17:00] LABS: Glucose Negative (Negative)
[2025-02-11 18:14] VITALS: BP 141/89; PULSE 82; RESP 16; O2SAT 96
[2025-02-11 18:15] LABS: ALT 39 U/L (10-49); AST 25 U/L (<34); Albumin 4.4 g/dL (3.4-5.0); Alkaline Phosphatase 148 U/L (46-116); Anion Gap 8.2 mmol/L (3-11); BUN 9 mg/dL (9-23); Bilirubin, Total 0.20 mg/dL (0.2-1.2); CO2 24.8 mmol/L (20.0-31.0); Calcium 9.2 mg/dL (8.3-10.6); Chloride 107 mmol/L (98-107); Glucose 99 mg/dL (74-106); Potassium 4.0 mmol/L (3.5-5.1); Sodium 140 mmol/L (136-145); Total Protein 7.3 g/dL (5.7-8.2)
--- NOTE | 2025-02-11 22:14 | W.ED.GENAD ---
Discharge Plan Disposition Patient Disposition: Against Medical Advice Discharge Details Clinical Impression: Abdominal pain Primary Care Provider: Stephie Sahni ED Provider: Kris Sandoval Home Meds and New Rx's Prescriptions: No Action magnesium oxide 420 mg tablet 420 mg PO DAILY B-complex with vitamin C Capsule 1 cap PO DAILY bupropion HCl [Wellbutrin XL] 150 mg tablet extended release 24 hr 150 mg PO QAM Qty: 90 1RF norgestimate-ethinyl estradiol [Sprintec (28)] 0.25-0.035 mg tablet 1 tab PO DAILY Qty: 84 3RF escitalopram oxalate 10 mg tablet 10 mg PO DAILY Qty: 90 3RF albuterol sulfate [Ventolin HFA] 90 mcg/actuation HFA aerosol inhaler 2 puff inhalation Q6H PRN (Reason: shortness of breath or wheezing) Qty: 8.5 3RF albuterol sulfate 1.25 mg/3 mL solution for nebulization 1.25 mg inhalation QID PRN (Reason: shortness of breath or wheezing) Qty: 75 1RF spironolactone 100 mg tablet 100 mg PO QAM Qty: 90 3RF nitrofurantoin monohyd/m-cryst [Macrobid] 100 mg capsule 100 mg PO Q12H 5 Days Qty: 10 0RF Rx Instructions: must administer with a meal/food docusate sodium [Colace] 100 mg capsule 100 mg PO BID Qty: 30 0RF ibuprofen 800 mg tablet 800 mg PO Q8H PRNQty: 60 0RF Discharge Instructions Instructions: Abdominal Pain, Adult ED Additional Instructions: As discussed, you are leaving AGAINST MEDICAL ADVICE as you are comprehensive metabolic panel results are not returned yet. There are lab test pending such as electrolytes and organ function that may fine critical life-threatening results. You will be contacted should these be significantly abnormal. As we are unable to diagnose exact what you are having abdominal pain I would recommend following up with your primary care provider for your schedule ultrasound return emergency department for any persistent new or worsening symptoms. Stand Alone Forms: Portal Information Discharge Data Discharge Date/Time-TO BE ENTERED AT DEPARTURE: 02/11/25 18:14 HPI General Date/Time Provider Initiated Documentation: 02/11/25 15:53. HPI Narrative: MDM/Narrative: 29-year-old female presenting for evaluation of several days of left upper quadrant pain no other associated symptoms. Vital signs notable for mild hypertension. Exam unremarkable. Will obtain screening labs and treat patient's symptoms with Tylenol and droperidol. ED course: Green top is hemolyzed, blood drawl was resent. Otherwise CBC UA unremarkable. Patient after administration of medications feels much better, CMP has not resulted however she would like to leave. Patient will be discharged against medical vice as CMP is pending. Disposition: Discharge AMA HPI: 29-year-old female past medical history of DU B, elevated alkaline phosphatase, presents for evaluation of left upper quadrant abdominal pain, times several days, without any associated symptoms including vomiting, diarrhea, fever, chills, dysuria, chest pain, shortness of breath. ROS: Negative besides as mentioned above Exam: Gen: A&O NAD HEENT: NCAT, EOMI, not icteric. External ears normal. No rhinorrhea. Moist mucous membranes. Neck: Supple, full range of motion, no observable masses, No meningeal sign. Lungs: No Respiratory distress. CV: RRR, no edema. Abdomen: Soft, nondistended, No rebound tenderness. MSK: No joint swelling, no redness. Skin: No rashes, petechiae, lesions. Normal color per patient. Neuro: Normal Gait, Grossly intact. Psych: Appropriate for situation. Laboratory Tests Range/Units 02/11/25 02/11/25 02/11/25 16:19 16:40 17:50 WBC (4.4-10.8) 10^3/uL 6.75 RBC (3.93-5.22) 10^6/uL 4.87 Hgb (11.2-15.7) g/dL 12.7 Hct (36.0-46.0) % 39.3 MCV (80-95) fL 81 MCH (27.0-33.0) pg 26.1 L MCHC (32.0-36.0) % 32.3 RDW (11.7-14.6) % 13.6 Plt Count (130-400) 10^3/uL 315 MPV (8.0-11.0) fL 9.0 Immature Gran % % 0.3 Neutrophils % % 53.5 Lymphocytes % % 36.0 Monocytes % % 8.7 Eosinophils % % 1.2 Basophils % % 0.3 Nucleated RBC % (0.0-0.3) % 0.0 Absolute Neutrophils (1.2-6.7) 10^3/uL 3.61 Absolute Lymphocytes (1.2-3.4) 10^3/uL 2.43 Absolute Monocytes (0.1-0.8) 10^3/uL 0.59 Absolute Eosinophils (0.0-0.7) 10^3/uL 0.08 Absolute Basophils (0.0-0.2) 10^3/uL 0.02 VBG Lactate (<or=2.0) mmol/L 1.7 Sodium Cancelled 140 Potassium Cancelled 4.0 Chloride Cancelled 107 Carbon Dioxide Cancelled 24.8 Anion Gap Cancelled 8.2 BUN Cancelled 9 Creatinine Cancelled 0.6 Est GFR (CKD-EPI 2020) Cancelled 123.62 Glucose Cancelled 99 Calcium Cancelled 9.2 Total Bilirubin Cancelled 0.20 AST Cancelled 25 ALT Cancelled 39 Alkaline Phosphatase Cancelled 148 H Total Protein Cancelled 7.3 Albumin Cancelled 4.4 Lipase (<53) U/L 40 Urine Color (Yellow) Yellow Urine Clarity (Clear) Clear Urine pH (5-8) 6.0 Ur Specific [place] (1.005-1.025) 1.015 Urine Protein (Neg-Trace) mg/dL Negative Urine Ketones (Negative) mg/dL Negative Urine Blood (Negative) Negative Urine Nitrite (Negative) Negative Urine Bilirubin (Negative) Negative Urine Urobilinogen (Up to 0.2) mg/dL 0.2 Ur Leukocyte Esterase (Negative) Negative Urine Glucose (Negative) mg/dL Negative Related Data Home Medications Medication Instructions Recorded Confirmed B-complex with vitamin C 1 cap PO DAILY 04/18/23 02/11/25 magnesium oxide 420 mg tablet 420 mg PO DAILY 04/18/23 02/11/25 docusate sodium 100 mg capsule 100 mg PO BID #30 caps 02/25/24 02/11/25 (Colace) ibuprofen 800 mg tablet 800 mg PO Q8H PRN #60 tabs 05/09/24 02/11/25 escitalopram oxalate 10 mg tablet 10 mg PO DAILY #90 tabs 08/03/24 02/11/25 albuterol sulfate 1.25 mg/3 mL 1.25 mg (3 mL) inhalation QID PRN 12/05/24 02/11/25 solution for nebulization shortness of breath or wheezing #75 mL albuterol sulfate 90 mcg/actuation 2 puff inhalation Q6H PRN 12/05/24 02/11/25 aerosol inhaler (Ventolin HFA) shortness of breath or wheezing #8.5 grams bupropion HCl 150 mg 24 hr tablet, 150 mg PO QAM #90 tabs 12/13/24 02/11/25 extended release (Wellbutrin XL) norgestimate 0.25 mg-ethinyl 1 tab PO DAILY #84 tabs 01/22/25 02/11/25 estradiol 0.035 mg tablet (Sprintec (28)) spironolactone 100 mg tablet 100 mg PO QAM #90 tabs 02/05/25 02/11/25 nitrofurantoin 100 mg PO Q12H 5 days #10 caps 02/09/25 02/11/25 monohydrate/macrocrystals 100 mg capsule (Macrobid) Previous Rx's Medication Instructions Recorded docusate sodium 100 mg capsule 100 mg PO BID #30 caps 02/25/24 (Colace) ibuprofen 800 mg tablet 800 mg PO Q8H PRN #60 tabs 05/09/24 escitalopram oxalate 10 mg tablet 10 mg PO DAILY #90 tabs 08/03/24 albuterol sulfate 1.25 mg/3 mL 1.25 mg (3 mL) inhalation QID PRN 12/05/24 solution for nebulization shortness of breath or wheezing #75 mL albuterol sulfate 90 mcg/actuation 2 puff inhalation Q6H PRN 12/05/24 aerosol inhaler (Ventolin HFA) shortness of breath or wheezing #8.5 grams bupropion HCl 150 mg 24 hr tablet, 150 mg PO QAM #90 tabs 12/13/24 extended release (Wellbutrin XL) norgestimate 0.25 mg-ethinyl 1 tab PO DAILY #84 tabs 01/22/25 estradiol 0.035 mg tablet (Sprintec (28)) spironolactone 100 mg tablet 100 mg PO QAM #90 tabs 02/05/25 nitrofurantoin 100 mg PO Q12H 5 days #10 caps 02/09/25 monohydrate/macrocrystals 100 mg capsule (Macrobid) Allergies Allergy/AdvReac Type Severity Reaction Status Date / Time No Known Allergies Allergy Verified 02/11/25 15:56 General Stated Complaint: Abd Prob TEO: 3 Course Vital Signs Vital signs: Vital Signs Temperature 36.8 C 02/11/25 15:52 Pulse 84 02/11/25 15:52 Respiratory Rate 18 02/11/25 15:52 Blood Pressure 136/82 02/11/25 15:52 Pulse Oximetry 98 02/11/25 15:52 Temperature 36.8 C 02/11/25 16:00 Pulse 82 02/11/25 18:14 Respiratory Rate 16 02/11/25 18:14 Blood Pressure 141/89 H 02/11/25 18:14 Pulse Oximetry 96 02/11/25 18:14 Pain Level 5 02/11/25 16:00 Lab/Test Results Lab/Test Results: Laboratory Tests Range/Units 02/11/25 02/11/25 02/11/25 16:19 16:40 17:50 WBC (4.4-10.8) 10^3/uL 6.75 RBC (3.93-5.22) 10^6/uL 4.87 Hgb (11.2-15.7) g/dL 12.7 Hct (36.0-46.0) % 39.3 MCV (80-95) fL 81 MCH (27.0-33.0) pg 26.1 L MCHC (32.0-36.0) % 32.3 RDW (11.7-14.6) % 13.6 Plt Count (130-400) 10^3/uL 315 MPV (8.0-11.0) fL 9.0 Immature Gran % % 0.3 Neutrophils % % 53.5 Lymphocytes % % 36.0 Monocytes % % 8.7 Eosinophils % % 1.2 Basophils % % 0.3 Nucleated RBC % (0.0-0.3) % 0.0 Absolute Neutrophils (1.2-6.7) 10^3/uL 3.61 Absolute Lymphocytes (1.2-3.4) 10^3/uL 2.43 Absolute Monocytes (0.1-0.8) 10^3/uL 0.59 Absolute Eosinophils (0.0-0.7) 10^3/uL 0.08 Absolute Basophils (0.0-0.2) 10^3/uL 0.02 VBG Lactate (<or=2.0) mmol/L 1.7 Sodium Cancelled 140 Potassium Cancelled 4.0 Chloride Cancelled 107 Carbon Dioxide Cancelled 24.8 Anion Gap Cancelled 8.2 BUN Cancelled 9 Creatinine Cancelled 0.6 Est GFR (CKD-EPI 2020) Cancelled 123.62 Glucose Cancelled 99 Calcium Cancelled 9.2 Total Bilirubin Cancelled 0.20 AST Cancelled 25 ALT Cancelled 39 Alkaline Phosphatase Cancelled 148 H Total Protein Cancelled 7.3 Albumin Cancelled 4.4 Lipase (<53) U/L 40 Urine Color (Yellow) Yellow Urine Clarity (Clear) Clear Urine pH (5-8) 6.0 Ur Specific [place] (1.005-1.025) 1.015 Urine Protein (Neg-Trace) mg/dL Negative Urine Ketones (Negative) mg/dL Negative Urine Blood (Negative) Negative Urine Nitrite (Negative) Negative Urine Bilirubin (Negative) Negative Urine Urobilinogen (Up to 0.2) mg/dL 0.2 Ur Leukocyte Esterase (Negative) Negative Urine Glucose (Negative) mg/dL Negative POC- Test(urine) Negative PFSH All Active Problems (Updated 02/11/25 @ 18:04 by Kris Sandoval MD) Abdominal pain (Acute) Elevated alkaline phosphatase measurement (Acute) Morbid obesity with BMI of 40.0-44.9, adult (Acute) COVID-19 (Acute) Delayed menses (Acute) Dysfunctional uterine bleeding (Acute) Anxiety (Chronic) Asthma (Chronic) Medical History Modified White class B pregestational diabetes mellitus (normal spontaneous vaginal delivery) (Unknown) Labor induction at 39 weeks and 1 day. Normal spontaneous vaginal delivery. Female . 02/24/2024. Apgars 8 and 9. Constipation Surgical History Status post tubal ligation Bilateral laparoscopic salpingectomy performed 05/09/2024 S/P appendectomy (2017) Family History Mother Essential hypertension Paternal Grandmother , age 54 Breast cancer Asthma Father No problems noted. Sister No problems noted. Brother No problems noted. Son No problems noted. Son No problems noted. Maternal Grandfather No problems noted. Paternal Grandfather , age 76 Stroke Maternal Grandmother Diabetes Depression Son No problems noted. 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 [employer] Pets and animals: Yes Pets and animals: cat(s) Sexually active: Yes Do you think of yourself as: straight/heterosexual Current gender identity: female What is your relationship status?: How often do you talk on the phone with friends or family?: three or more times per week How often do you get together with friends or relatives?: three or more times per week How often do you attend yarsanism or hoahaoism services?: 1-3 times per year Do you belong to any clubs or organized social groups?: no Panel score (0-1 are the most socially isolated patients): 2 What type of physical activity do you participate in: walking Duration: < 15 minutes/day Frequency: daily Bonnie/Adventism: Non sikhism Special bonnie needs: No Seatbelt use: always Helmet use: Yes Helmet use: always Drive intox or ride w/intox route sales driver: No Working smoke detector in home: Yes Carbon monox detector in home: Yes Firearms in home: Yes Firearms unloaded and locked: Yes Do you feel safe at home: Yes Do you feel safe in your relationship?: Yes Victim of physical abuse: No Victim of emotional abuse: Yes Victim of sexual abuse: No Would you like helpful sources: No Female Reproductive History Menstrual control method: pills History History 4 Para 4 Hx # Term Pregnancies 4 Multiple births 0 Hx # Pregnancies 0 Ectopic pregnancies 0 AB induced 0 Hx Number of Living Children 4 AB spontaneous 0 Past Pregnancies Del. Date GA/Weeks # Preg Succ Route Wgt Sex Labor Lgth Anesthesia Location Prov Complic 02/14/13 39 No vaginal 3600.389 g Male 12 hrs [facility] - [place] 09/14/16 40 No vaginal 4422.526 g Male 4 hrs [facility] - [place] 03/04/21 39 No vaginal 3940.584 g Male 4hr [facility] - [place] 03/25/24 39 No Yes vaginal 4195.729 g Female MD [facility] Delivery Date: 02/14/13 Last Updated by: Mayuri Bass CNM nml labor and , epidural, stitches, no complications [place] Delivery Date: 09/14/16 Last Updated by: Mayuri Bass CNM fast labor, used nitrous only, nml , only 4 stitches, no complications. [place] Delivery Date: 03/04/21 Last Updated by: Krystal Tamayo M.D. Induction for DM - [place] Delivery Date: 03/25/24 Last Updated by: Krystal Tamayo MD Induced for Chronic Maternal Diabetes [place]
== END 2025-02-11 18:14 | disposition left against medical advice (07) ==
PROVIDERS: Emergency Provider General Practice; PCP Nurse Practitioner Family
DX: R10.9 Unspecified abdominal pain (principal)
CPT/HCPCS: 99283; 99284; 81025; 96374; 96375; 80053; 83690; 81003; 83605; 85025; J0131; J1790

== ENCOUNTER 2025-02-15 22:47 | Emergency (ER) | payer BC, MEDICAID, SELFPAY ==
[2025-02-15 22:51] VITALS: BP 139/92; PULSE 95; RESP 14; TEMP 36.3
--- NOTE | 2025-02-15 22:55 | ED.GENADUL_ITS ---
Discharge Plan Disposition Patient Disposition: Home Condition: Good Discharge Details Clinical Impression: Abdominal pain Primary Care Provider: Sonia Olivera ED Provider: Adelita Davis Home Meds and New Rx's Prescriptions: Continued B-complex with vitamin C Capsule 1 cap PO DAILY bupropion HCl [Wellbutrin XL] 150 mg tablet extended release 24 hr 150 mg PO QAM Qty: 90 1RF norgestimate-ethinyl estradiol [Sprintec (28)] 0.25-0.035 mg tablet 1 tab PO DAILY Qty: 84 3RF escitalopram oxalate 10 mg tablet 10 mg PO DAILY Qty: 90 3RF albuterol sulfate [Ventolin HFA] 90 mcg/actuation HFA aerosol inhaler 2 puff inhalation Q6H PRN (Reason: shortness of breath or wheezing) Qty: 8.5 3RF albuterol sulfate 1.25 mg/3 mL solution for nebulization 1.25 mg inhalation QID PRN (Reason: shortness of breath or wheezing) Qty: 75 1RF spironolactone 100 mg tablet 100 mg PO QAM Qty: 90 3RF docusate sodium [Colace] 100 mg capsule 100 mg PO BID Qty: 30 0RF ibuprofen 800 mg tablet 800 mg PO Q8H PRNQty: 60 0RF Discontinued magnesium oxide 420 mg tablet 420 mg PO DAILY Discharge Instructions Instructions: Abdominal Pain, Adult ED Additional Instructions: You can take tylenol and ibuprofen over the counter for pain; follow the directions on the bottle. Call your primary care doctor in the morning to schedule an appointment for within the next 72 hours to followup on your visit here. Make sure to keep your appointment for your ultrasound. Return to the emergency department for new or worsening symptoms, including if your pain returns and does not improve with home medication, you begin vomiting, develop a fever, or if you have any other concerns. Stand Alone Forms: Portal Information HPI General Mode of arrival: ambulatory . Date/Time Provider Initiated Documentation: 02/15/25 22:49 . Limitations to Documentation: no limitations . Information obtained by: patient and old records reviewed . HPI Narrative: 29yo F with hx obesity, elevated ALP, asthma, presenting for RUQ pain. Pain started around 8pm after dinner, initially coming and going but now more constant. Described as burning. Moderate in severity, non radiating, no alleviating or aggravating factors. Did not try anything at home for pain. Associated nausea, no vomiting. Some loose stool today, nonbloody. She did have similar pain around 1pm this afternoon after lunch which resolved after ibuprofen. Recent ED visit 02/11/25 for LEFT UQ abd pain; symptoms improved at that time with treatment and pt left AMA prior to labs resulting. She reports that she has lab findings in the past which were concerning for something to do with her gallbladder, and has an abdominal ultrasound scheduled for Tuesday (4 days from now). No prior diagnosis of gallbladder pathology or gallstones. UTI last week which was treated with abx; at that time she had dysuria which has since resolved and not recurred. No flank or back pain. Currently menstruating. Otherwise in her usual state of health with no fevers, chills, rash, chest pain, shortness of breath, pleuritic pain, lightheadedness, bloody stool, or other concerns. Related Data Home Medications Medication Instructions Recorded Confirmed B-complex with vitamin C 1 cap PO DAILY 04/18/2301/27 docusate sodium 100 mg capsule 100 mg PO BID #30 caps 02/25/24 02/15/25 (Colace) ibuprofen 800 mg tablet 800 mg PO Q8H PRN #60 tabs 0 05/09/24 02/15/25 escitalopram oxalate 10 mg tablet 10 mg PO DAILY #90 t abs 08/03/24 02/15/25 albuterol sulfate 1.25 mg/3 mL 1.25 mg (3 mL) inhalati on QID PRN 12/05/24 02/15/25 solution for nebulization shortness of breath or wheez ing #75 mL albuterol sulfate 90 mcg/actuation 2 puff inhalation Q 6H PRN 12/05/24 02/15/25 aerosol inhaler (Ventolin HFA) shortness of breath or wheezing #8.5 grams bupropion HCl 150 mg 24 hr tablet, 150 mg PO QAM #90 t abs 12/13/24 02/15/25 extended release (Wellbutrin XL) norgestimate 0.25 mg-ethinyl 1 tab PO DAILY #84 tabs 1 02/15/25 estradiol 0.035 mg tablet (Sprintec (28)) spironolactone 100 mg tablet 100 mg PO QAM #90 tabs 02/15/25 Previous Rx's Medication Instructions Recorded docusate sodium 100 mg capsule 100 mg PO BID #30 caps 02/25/24 (Colace) ibuprofen 800 mg tablet 800 mg PO Q8H PRN #60 tabs 0 05/09/24 escitalopram oxalate 10 mg tablet 10 mg PO DAILY #90 t abs 08/03/24 albuterol sulfate 1.25 mg/3 mL 1.25 mg (3 mL) inhalati on QID PRN 12/05/24 solution for nebulization shortness of breath or wheez ing #75 mL albuterol sulfate 90 mcg/actuation 2 puff inhalation Q 6H PRN 12/05/24 aerosol inhaler (Ventolin HFA) shortness of breath or wheezing #8.5 grams bupropion HCl 150 mg 24 hr tablet, 150 mg PO QAM #90 t abs 12/13/24 extended release (Wellbutrin XL) norgestimate 0.25 mg-ethinyl 1 tab PO DAILY #84 tabs 1 estradiol 0.035 mg tablet (Sprintec (28)) spironolactone 100 mg tablet 100 mg PO QAM #90 tabs Allergies Allergy/AdvReac Type Severity Reaction Status Date / Time No Known Allergies Allergy Verified 02/15/25 23:09 General TEO: 3 Review of Systems Narrative: see HPI Exam Narrative Exam Narrative: General: Alert, well appearing, well nourished, in no acute distress. Head: Normocephalic, atraumatic Neck: Trachea midline, Neck supple. ENT: MMM. No oropharygeal lesions or exudate. Cardiac: RRR, no murmurs appreciated Resp: No respiratory distress. CTAB. Abd: Soft, non-distended, minimally tender to RUQ with no rebound or guarding. Negative granado's. : No suprapubic tenderness. No CVA tenderness. Extremities: No deformities. No peripheral edema. Neurologic: GCS 15. Moves all extremities freely against gravity Medical Decision Making 29yo F with hx obesity, elevated ALP, asthma, presenting for burning RUQ pain onset after eating dinner, associated nausea with no vomiting. ED visit 02/11/25 for *left* UQ abdominal pain (ED visit note reviewed, midly elevated ALP otherwise reasuring labs, no imaging done at that visit and pt left AMA after symptoms resolved). Currently has abdominal ultrasound scheduled for next Tuesday. Vital signs reassuring on arrival, abdomen minimally tender to RUQ with negative rganado's. Well appearing and afebrile. No lower abdominal tenderness to suggest ovarian/pelvic pathology. Not septic. Given recurrent symptoms, warrants imaging; regrettably no US available at [facility] overnight/weekend so will get CT. Will treat with IV tylenol, toradol, zofran, GI cocktail while awaiting results of workup. -Labs reviewed as below, CBC reassuring with no leukocytosis or anemia, CMP with no actionable abnormalities. ALP mildly elevated at 161 (has been 148-191 since Nov of this year), Mg normal, lipase, lactate normal, UA not infected to suggest pyelenephritits (+ hematuria in setting of menstruation, low suspicion for kidney stone given description of symptoms). negative. -CT abd/pelvis independently reviewed; no bowel obstruction or free fluid on my view, agree with radiology read with no gallbladder distension or evident wall thickening. On reassessment patient reports pain has much improved, now minimal. Repeat abdominal exam with no tenderness, again with negative granado's. Patient is feeling better and would like to go home which with her reassuring workup is reasonable. Labs and exam reassuring against acute cholecysitits or other surgical abdominal pathology. I do not feel she warrants emergent transfer for ultrasound today. Appropriate to discharge to planned outpatient US and close PCP followup with strict return precautions. The importance of returning to the ED should her symptoms return or worsen was stressed. Discharged home; dischar instructions and return precautions were reviewed with patient who verbalized understanding. All questions were answered and she is in full agreement with the plan. IMPRESSION: No acute findings. Medical Records Medical records reviewed: Yes I reviewed the patient's medical records. PFSH All Active Problems (Updated 02/16/25 @ 01:04 by Adelita Davis MD) Abdominal pain (Acute) Abdominal pain (Acute) Elevated alkaline phosphatase measurement (Acute) Morbid obesity with BMI of 40.0-44.9, adult (Acute) COVID-19 (Acute) Delayed menses (Acute) Dysfunctional uterine bleeding (Acute) Anxiety (Chronic) Asthma (Chronic) Medical History Modified White class B pregestational diabetes mellitus (normal spontaneous vaginal delivery) (Unknown) Labor induction at 39 weeks and 1 day. Normal spontaneous vaginal delivery. Female infant. 02/24/2024. Apgars 8 and 9. Constipation Surgical History Status post tubal ligation Bilateral laparoscopic salpingectomy performed 05/09/2024 S/P appendectomy (2017) Family History Mother Essential hypertension Paternal Grandmother , age 54 Breast cancer Asthma Father No problems noted. Sister No problems noted. Brother No problems noted. Son No problems noted. Son No problems noted. Maternal Grandfather No problems noted. Paternal Grandfather , age 76 Stroke Maternal Grandmother Diabetes Depression Son No problems noted. 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 [employer] Pets and animals: Yes Pets and animals: cat(s) Sexually active: Yes Do you think of yourself as: straight/heterosexual Current gender identity: female What is your relationship status?: How often do you talk on the phone with friends or family?: three or more times per week How often do you get together with friends or relatives?: three or more times per week How often do you attend orthodox or shinto services?: 1-3 times per year Do you belong to any clubs or organized social groups?: no Panel score (0-1 are the most socially isolated patients): 2 What type of physical activity do you participate in: walking Duration: < 15 minutes/day Frequency: daily Bonnie/Denominational: Non zoroastrian Special bonnie needs: No Seatbelt use: always Helmet use: Yes Helmet use: always Drive intox or ride w/intox roll off driver: No Working smoke detector in home: Yes Carbon monox detector in home: Yes Firearms in home: Yes Firearms unloaded and locked: Yes Do you feel safe at home: Yes Do you feel safe in your relationship?: Yes Victim of physical abuse: No Victim of emotional abuse: Yes Victim of sexual abuse: No Would you like helpful sources: No Female Reproductive History Menstrual control method: pills History History 4 Para 4 Hx # Term Pregnancies 4 Multiple births 0 Hx # Pregnancies 0 Ectopic pregnancies 0 AB induced 0 Hx Number of Living Children 4 AB spontaneous 0 Past Pregnancies Del. Date GA/Weeks # Preg Succ Route Wgt Sex Labor Lgth Anesth esia Location [facility] 02/14/13 39 No vaginal 3600.389 g Male 12 hrs regional [facility] [place] 09/14/16 40 No vaginal 4422.526 g Male 4 hrs [facility] [place] 03/04/21 39 No vaginal 3940.584 g Male 4hr [facility] [place] 03/25/24 39 No Yes vaginal 4195.729 g Female Myah tse MD Delivery Date: 02/14/13 Last Updated by: Mayuri Bass CNM nml labor and , epidural, stitches, no complications [place] Delivery Date: 09/14/16 Last Updated by: Mayuri Bsas CNM fast labor, used nitrous only, nml , only 4 stitches, no complications. [place] Delivery Date: 03/04/21 Last Updated by: Krystal Tamayo M.D. Induction for DM - [place] Delivery Date: 03/25/24 Last Updated by: Krystal Tamayo MD Induced for Chronic Maternal Diabetes [place]
[2025-02-15] MEDS: MYLANTA 30 ML, LIDOCAINE 2% VISCOUS UD 15 ML PO (23:21)
[2025-02-15 23:41] LABS: Abs Immature Grans 0.01 10^3/uL (0.0-0.06); HCT 38.3 % (36.0-46.0); HGB 12.1 g/dL (11.2-15.7); Immature Grans % 0.1 %; MCH 25.5 pg (27.0-33.0); MCHC 31.6 % (32.0-36.0); MCV 81 fL (80-95); MPV 8.9 fL (8.0-11.0); Platelet Count 293 10^3/uL (130-400); RBC 4.74 10^6/uL (3.93-5.22); RDW 13.4 % (11.7-14.6); RDW-SD 39.2 fL; WBC 8.94 10^3/uL (4.4-10.8)
[2025-02-15] MEDS: ACETAMINOPHEN 1,000 MG/100 ML BAG 400 MG IVPB (23:55)
[2025-02-15] MEDS: Ketorolac 15 MG/ML VIAL IVP (23:55)
[2025-02-16] MEDS: Ondansetron 4 MG/2 ML VIAL IVP (00:02)
[2025-02-16 00:17] LABS: HCG Qual (Serum) Negative
[2025-02-16 00:43] LABS: Glucose Negative (Negative)
[2025-02-16 00:44] LABS: C & S Indicated? No; WBC Negative HPF (0-5)
--- NOTE | 2025-02-16 00:49 | DI.CT_ITS ---
Exam(s) CT ABDOMEN PELVIS W EXAM: CT ABDOMEN PELVIS W CLINICAL HISTORY: RUQ pain and nausea. TECHNIQUE: Imaging Protocol: Axial computed tomography images with coronal and sagittal reformatted images were created and reviewed CONTRAST MATERIAL: Intravenous: Omnipaque 350 Contrast volume:100 ml Oral: no COMPARISON: CT ABD PELVIS WITH CONTRAST from 12/24/2016 FINDINGS: ABDOMEN and PELVIS: Lung Bases: No acute findings. Liver: Normal density. No suspicious mass. Gallbladder and biliary tract: No radiodense calculus. No wall thickening or pericholecystic fluid. No biliary dilation. Pancreas: Normal density. No abnormal calcifications or inflammatory process. No evidence of mass. Spleen: Normal. Kidneys: Normal size, contour and axis. No radiodense stones. No obstructive uropathy. No suspicious masses seen. Adrenal glands: No masses seen. Vasculature: Abdominal aorta non-dilated. Soft tissues: Unremarkable. Bladder: No gross wall thickening. No calculi.No focal mass. Bowel: No obstruction. No bowel wall thickening. Appendectomy. Normal quantity of stool. Peritoneal cavity: No ascites. No focal collection. No mesenteric inflammatory response. No free air. Bones: Degenerative disc changes at L5-S1. Reproductive organs: Unremarkable. Lymph nodes: No pathologically enlarged lymph nodes. IMPRESSION:: No acute abnormality in the abdomen or pelvis. The preliminary [facility] report was reviewed. RADIATION DOSE DELIVERED: Total DLP DATA REPOSITORY: All CT scans at this facility are submitted to the National Radiology Data Registry (NRDR) Dose Index Registry (DIR) with the [employer] (ACR). RADIATION OPTIMIZATION: All CT scans at this facility use at least one of these dose optimization techniques: automated exposure control; mA and/or kV adjustment per patient size (includes targeted exams where dose is matched to clinical indication); or iterative reconstruction.
[2025-02-16] MEDS: Normal Saline - Diluent 50 ML VIAL IJ (00:50)
[2025-02-16] MEDS: Normal Saline Flush 10 ML SYR IVP (00:50)
[2025-02-16] MEDS: Omnipaque 350 MG/ML 100 ML BTL IJ (00:50)
[2025-02-16 00:51] LABS: Lipase 37 U/L (<53); Magnesium 1.9 mg/dL (1.6-2.6)
[2025-02-16 00:57] LABS: ALT 25 U/L (10-49); AST 17 U/L (<34); Albumin 4.0 g/dL (3.4-5.0); Alkaline Phosphatase 161 U/L (46-116); Anion Gap 8.8 mmol/L (3-11); BUN 13 mg/dL (9-23); Bilirubin, Total < 0.20 mg/dL (0.2-1.2); CO2 26.2 mmol/L (20.0-31.0); Calcium 9.6 mg/dL (8.3-10.6); Chloride 105 mmol/L (98-107); Glucose 108 mg/dL (74-106); Potassium 4.3 mmol/L (3.5-5.1); Sodium 140 mmol/L (136-145); Total Protein 6.6 g/dL (5.7-8.2)
--- NOTE | 2025-02-16 00:58 | DI.[facility]_ITS ---
PROCEDURE INFORMATION: Exam: CT Abdomen And Pelvis With Contrast Exam date and time: 02/16/2025 12:31 AM Age: 29 years old Clinical indication: Abdominal pain; Localized; Right upper quadrant (ruq); Prior surgery; Surgery date: 6+ months; Surgery type: Appendectomy; Ruq pain and nausea TECHNIQUE: Imaging protocol: Computed tomography of the abdomen and pelvis with contrast. Radiation optimization: All CT scans at this facility use at least one of these dose optimization techniques: automated exposure control; mA and/or kV adjustment per patient size (includes targeted exams where dose is matched to clinical indication); or iterative reconstruction. Contrast material: [id number]; Contrast volume: 100 ml; Contrast route: INTRAVENOUS (IV); COMPARISON: US PELVIS TRANSVAGINAL 12/27/2024 12:24 PM FINDINGS: Lungs: Lung bases are unremarkable. Liver: The liver is unremarkable. Gallbladder and biliary ducts: No gallstones. Nondistended. No wall thickening. Pancreas: Normal. No ductal dilation. Spleen: No splenomegaly. No lesions. Adrenal glands: The adrenal glands are unremarkable. Kidneys and ureters: The kidneys are normal. Stomach and bowel: Moderate stool throughout the colon and rectum. Appendix: There has been an appendectomy. Intraperitoneal space: Unremarkable. No free air. No significant fluid collection. Vasculature: Patent vessels without evidence of aneurysm, dissection, occlusion or critical stenosis. Lymph nodes: Unremarkable. No enlarged lymph nodes. Urinary bladder: No focal wall thickening of the urinary bladder. Reproductive: The uterus is unremarkable. Bones/joints: No acute osseous abnormality. Soft tissues: Soft tissues are unremarkable as visualized. IMPRESSION: No acute findings. Dictated and Authenticated by: Kellee Duenas MD. Orderin Ryan Ureña MD
[2025-02-16 01:10] VITALS: BP 119/62; PULSE 69; RESP 16; TEMP 36.5; O2SAT 97
== END 2025-02-16 01:25 | disposition home or self-care (01) ==
PROVIDERS: Emergency Provider Student in an Organized Health Care Education/Training Program; PCP Nurse Practitioner Family
DX: R10.11 Right upper quadrant pain (principal); R11.0 Nausea
CPT/HCPCS: 80053; 83690; 96365; 96375; 99285; 74177; 81003; 81015; 83605; 83735; 84703; 85025; 99283; J0131; J1885; J2405; J3490